=== PATIENT | female | born 1985 | race American Indian/Alaskan Native ===

== ENCOUNTER 2016-05-27 15:47 | Emergency (ER) | payer SELFPAY ==
[2016-05-27 21:32] LABS: Bilirubin,Urine NEG (Negative); Blood,Urine NEG (Negative); Ketones,Urine NEG (Negative); Leukocyte Esterase,Urine NEG (Negative); Mucus,Urine 3+ /HPF; Nitrite,Urine NEG (Negative); Protein,Urine <15 mg/dL mg/dL (Negative); Urobilinogen,Urine < 2.0 mg/dL (<2.0)
--- NOTE | 2016-05-27 21:37 | Emergency Department Report ---
HPI - General Chief Complaint: Urogenital-Female Time Seen by Provider: 05/27/16 19:32 - HPI HPI: 31-year-old female presents today with vaginal irritation and burning 2 weeks. Patient denies vaginal discharge or vaginal bleeding. She states she once an STD check. Positive for unprotected sex. Denies history of STDs. States that she has history of bacterial vaginosis but this feels different. Denies dysuria , increased urinary frequency or urgency. Denies fever, chills, nausea, vomiting, chest pain, shortness of breath, abdominal pain. ED Past Medical Hx - Past Medical History Previous Medical History?: No - Surgical History Past Surgical History?: Yes Additional Surgical History: x 2 - Social History Smoking Status: Current Every Day Smoker Substance Use Type: Alcohol - Medications Home Medications: Home Medications Medication Instructions Recorded Confirmed Last Taken Type Ferrous Sulfate [Feosol] 325 mg PO BID #60 tablet 04/18/15 02/22/16 Rx Hydrocortisone 1% [Hydrocortisone 1 applicatio TP TID #1 tube 02/29/16 Unknown Rx 1% CREAM] diphenhydrAMINE [Benadryl CAP] 25 mg PO Q8HR PRN #20 capsule 02/29/16 Unknown Rx ED Review of Systems ROS: Stated complaint: VAGINAL BURNING Other details as noted in HPI Constitutional: denies: chills, fever, malaise Eyes: denies: eye pain ENT: denies: ear pain, throat pain, congestion Respiratory: denies: cough, shortness of breath, wheezing Cardiovascular: denies: chest pain, palpitations Endocrine: no symptoms reported Gastrointestinal: denies: abdominal pain, nausea, vomiting, diarrhea Genitourinary: denies: urgency, dysuria, frequency, hematuria, discharge Musculoskeletal: denies: back pain Skin: denies: rash Neurological: denies: headache, weakness Physical Exam - Physical Exam Vital Signs: Vital Signs 05/27/16 16:33 Temperature 98.4 F Pulse Rate 78 Respiratory 18 Rate Blood Pressure 130/84 O2 Sat by Pulse 98 Oximetry Physical Exam: GENERAL: The patient is well-developed and well-nourished. Patient is in NAD. HEAD: Normocephalic. Atraumatic. CHEST/LUNGS: Clear to auscultation throughout. HEART/CARDIOVASCULAR: Regular rate and rhythm. No murmurs, rubs or gallops. ABDOMEN: Abdomen is soft, nontender. Bowel sounds normoactive. No guarding or rebound tenderness. PELVIC: Normal external genitalia, vaginal canal and cervical os. Positive for white milky discharge. EXTREMITIES: Peripheral pulses intact. Capillary refill less than 2 seconds. NEURO: Alert and oriented x 3. Normal gait. ED Course Vital Signs 05/27/16 16:33 Temperature 98.4 F Pulse Rate 78 Respiratory 18 Rate Blood Pressure 130/84 O2 Sat by Pulse 98 Oximetry ED Medical Decision Making - Lab Data Vital Signs 05/27/16 16:33 Temperature 98.4 F Pulse Rate 78 Respiratory 18 Rate Blood Pressure 130/84 O2 Sat by Pulse 98 Oximetry Lab Results 05/27/16 Range/Units 20:54 Urine Color Yellow (Yellow) Urine Turbidity Cloudy (Clear) Urine pH 5.0 (5.0-7.0) Ur Specific [place] 1.023 (1.003-1.030) Urine Protein <15 mg/dl (Negative) mg/dL Urine Glucose (UA) Neg (Negative) mg/dL Urine Ketones Neg (Negative) mg/dL Urine Blood Neg (Negative) Urine Nitrite Neg (Negative) Urine Bilirubin Neg (Negative) Urine Urobilinogen < 2.0 (<2.0) mg/dL Ur Leukocyte Esterase Neg (Negative) Urine WBC (Auto) 6.0 (0.0-6.0) /HPF Urine RBC (Auto) 2.0 (0.0-6.0) /HPF U Epithel Cells (Auto) 13.0 (0-13.0) /HPF Urine Mucus 3+ /HPF WET PREP: No clue cells, yeast or trichomonas seen. - Medical Decision Making 31-year-old female presents today with vaginal irritation and burning 2 weeks. Her urine analysis and wet prep is within normal limits. A referral for an OB /[employer] has been provided and patient is recommended to follow up. Patient is in no acute distress at this time. She will be discharged home and is encouraged to follow up with a primary care provider. She is encouraged to return to the emergency room for any worsening symptoms. Critical care attestation.: If time is entered above; I have spent that time in minutes in the direct care of this critically ill patient, excluding procedure time. ED Disposition Clinical Impression: Vaginal irritation Disposition: DISCHARGED TO HOME OR SELFCARE Is pt being admited?: No Does the pt Need Aspirin: No Condition: Stable Instructions: Vaginitis (ED) Additional Instructions: Follow-up with S[facility] [facility]. Return to emergency department if symptoms worsen. Referrals: PRIMARY CARE, [Primary Care Provider] - 3-5 Days NICOL HERNANDEZ MD [Staff Physician] - 3-5 Days Forms: Work/School Release Form(ED) Time of Disposition: 23:22
[2016-05-27 22:17] VITALS: BP 125/70
== END 2016-05-28 00:09 | disposition home or self-care (01) ==
LOC: ED 15:47
DX: N89.8 Other specified noninflammatory disorders of vagina (principal); F17.200 Nicotine dependence, unspecified, uncomplicated
CPT/HCPCS: 81001; 87210; 87591; 99284

== ENCOUNTER 2017-03-07 15:43 | Emergency (ER) | payer SELFPAY ==
[2017-03-07 15:52] VITALS: BP 124/64
[2017-03-07 16:56] LABS: Bilirubin,Urine NEG (Negative); Blood,Urine NEG (Negative); Ketones,Urine NEG (Negative); Leukocyte Esterase,Urine TR (Negative); Mucus,Urine FEW /HPF; Nitrite,Urine NEG (Negative)
== END 2017-03-07 21:50 | disposition left against medical advice (07) ==
LOC: ED 15:43
DX: M79.89 Other specified soft tissue disorders (principal); Z53.21 Procedure and treatment not carried out due to patient leaving prior to being seen by health care provider
CPT/HCPCS: 81001; 81025

== ENCOUNTER 2017-04-18 14:08 | Emergency (ER) | payer SELFPAY ==
[2017-04-18 14:23] VITALS: BP 108/84
[2017-04-18 15:36] LABS: Bacteria,Urine 1+ /HPF (Negative); Bilirubin,Urine NEG (Negative); Blood,Urine LG (Negative); Ketones,Urine 20 mg/dL (Negative); Leukocyte Esterase,Urine NEG (Negative); Mucus,Urine 3+ /HPF; Nitrite,Urine NEG (Negative)
--- NOTE | 2017-04-18 15:44 | Emergency Department Report ---
HPI - General Chief Complaint: Upper Respiratory Infection Time Seen by Provider: 04/18/17 15:00 - HPI HPI: Patient reports that she has a skin rash to her left forearm on the side. She says she doesn't know what caused that but it's irritating her. She says she just thought yesterday. She is also complaining of sinus pain and drainage at 3 out of 10 that started 4 days ago. She says she has not used any over-the- counter medication. Denies any nausea or vomiting. Denies any cough. Denies any sore throat. She says she has nasal congestion and drainage. Denies any fever or chills. Denies any chest pain. Patient also complaining of exposure to STD. She said she is not having any vaginal discharge but she was told by the person that she had unprotected sex with that he has an STD and was treated. Patient is not sure what STD. She is requesting treatment for gonorrhea, chlamydia, Trichomonas. She is alson also requested in HIV and hepatitis test. Patient is currently on her period that she says she started 2 days ago 04/15/2017. He denies any urinary burning frequency or urgency. Denies any abdominal or back pain. ED Past Medical Hx - Past Medical History Previous Medical History?: No - Surgical History Past Surgical History?: Yes Additional Surgical History: x 2 - Family History Family history: no significant - Social History Smoking Status: Current Every Day Smoker Substance Use Type: Alcohol - Medications Home Medications: Home Medications Medication Instructions Recorded Confirmed Last Taken Type Ferrous Sulfate [Feosol] 325 mg PO BID #60 tablet 04/18/15 02/22/16 Rx Hydrocortisone 1% [Hydrocortisone 1 applicatio TP TID #1 tube 02/29/16 Unknown Rx 1% CREAM] diphenhydrAMINE [Benadryl CAP] 25 mg PO Q8HR PRN #20 capsule 02/29/16 Unknown Rx Cetirizine HCl [ZyrTEC] 10 mg PO QAM 14 Days #14 capsule 04/18/17 Unknown Rx Fluticasone [Flonase] 1 spray NS QDAY 14 Days #1 bottle 04/18/17 Unknown Rx Triamcinolone 0.1% [Kenalog 0.1% 1 applic TP TID 7 Days #1 tube 04/18/17 Unknown Rx OINT] ED Review of Systems ROS: Stated complaint: NAUSEA Other details as noted in HPI Comment: All other systems reviewed and negative Constitutional: no symptoms reported Eyes: denies: eye discharge ENT: congestion (sinus drainage and congestion. Sinus pain). denies: ear pain , throat pain, dental pain, hearing loss Respiratory: no symptoms reported Cardiovascular: denies: chest pain, palpitations, dyspnea on exertion, orthopnea , edema, syncope, paroxysmal nocturnal dyspnea Gastrointestinal: denies: abdominal pain, nausea, vomiting, diarrhea, constipation Genitourinary: denies: urgency, dysuria, frequency, hematuria, discharge, abnormal menses, dyspareunia Musculoskeletal: denies: back pain, arthralgia, myalgia Skin: denies: rash Neurological: denies: headache, numbness, paresthesias, confusion, abnormal gait , vertigo Physical Exam - Physical Exam Vital Signs: Vital Signs 04/18/17 14:18 Temperature 98.9 F Pulse Rate 97 H Respiratory 22 Rate Blood Pressure 108/84 O2 Sat by Pulse 100 Oximetry General: This is a 32-year-old female well-nourished well-developed in no acute distress Physical Exam: Head: Normocephalic atraumatic Ears:BIateral TM congested without erythema and no loss of bony landmarks. Tac[place] EAC with normal exam. No mastoid bone tenderness. Mouth: Moist, no pharyngeal erythema or exudate . No tonsillar erythema or exudate. UVULA midline and oral airways patent. No peritonsillar abscess Neck: Nontender to palpate, supple, normal range of motion. No adenopathy. No c- spine tenderness. Nose: Bilateral nasal mucosa congested and erythema with clear drainage. Maxillary and frontal sinuses non-tender to palpate. Eyes: Tac[place] Sclerae and conjunctiva without injection. Bilateral pupils equal and reactive to light. Bilateral lids are normal. Normal accommodation.BEOMI Lungs: Clear to auscultate bilaterally, no rhonchi wheezes or rales. Normal work of breathing and no chest wall tenderness. CV: S1, S2. Regular rate and rhythm negative murmur. Capillary refill is less than 3 seconds Abd: Soft, nontender to palpate no quadrants, no guarding or rebound tenderness. Normal bowel sounds and no CVA tenderness Skin: Clean dry and intact, small, dark area noted to right outer lateral forearm ,macular, and scaly. No induration. No erythema Psych: Normal mood and behavior ED Course Vital Signs 04/18/17 14:18 Temperature 98.9 F Pulse Rate 97 H Respiratory 22 Rate Blood Pressure 108/84 O2 Sat by Pulse 100 Oximetry - Reevaluation(s) Reevaluation #1: 04/18/17 16:02 Treated empirically for Gonorrhea with Rocephin 250 mg IM, Chlamydia with Zithromax 1 gram po and for Trichomonias flagyl 2 gram po ED Medical Decision Making - Lab Data Lab Results 04/18/17 04/18/17 Range/Units 15:11 15:42 Urine Color Yellow (Yellow) Urine Turbidity Clear (Clear) Urine pH 6.0 (5.0-7.0) Ur Specific [place] 1.021 (1.003-1.030) Urine Protein 30 mg/dl (Negative) mg/dL Urine Glucose (UA) Neg (Negative) mg/dL Urine Ketones 20 (Negative) mg/dL Urine Blood Lg (Negative) Urine Nitrite Neg (Negative) Urine Bilirubin Neg (Negative) Urine Urobilinogen 4.0 (<2.0) mg/dL Ur Leukocyte Esterase Neg (Negative) Urine WBC (Auto) 4.0 (0.0-6.0) /HPF Urine RBC (Auto) 1.0 (0.0-6.0) /HPF U Epithel Cells (Auto) 10.0 (0-13.0) /HPF Urine Bacteria (Auto) 1+ (Negative) /HPF Urine Mucus 3+ /HPF Urine HCG, Qual Negative (Negative) Patient has a large amount of blood in her urine because she just started her menses 2 days ago. She has ketones and able to tolerate warranted 80 mL of apple juice in emergency room without any nausea or vomiting. - Medical Decision Making ED course: ED patient here complaining of sinus pain and nasal congestion and drainage and found to have sinus inflammation which is more than likely viral in nature since this has been going on for 4 days and she has not tried any over -the-counter medication. Patient is not having any cough or fever. She complaining of rash to her right arm and found to have small macular dark, scaly area without any signs of infection. Patient also here because she says she was exposed to STD and she is asymptomatic but requested to be treated for STDs. Her urinalysis negative for infection, +20 ketones and patient was orally hydrated in emergency room and tolerated well. I encouraged her that she needs to increase her fluid intake to 2-3 L of water per day. Urine was negative. Patient had large amount of blood in her urine and she just started her period 2 days ago.Treated empirically for Gonorrhea with Rocephin 250 mg IM, Chlamydia with Zithromax 1 gram po and for Trichomonias flagyl 2 gram po . He had no adverse reaction from medication given. I discussed lab work patient and I also told her that she needs to follow up with [facility] to get STD testing to include hepatitis, HIV and other STD. Patient does not have any discharge she just said that the person that she had sexual intercourse with said that he had an STD. Safe sex encourage. Patient discharged home with prescription for Flonase and Zyrtec and hydrocortisone cream for rash. Critical care attestation.: If time is entered above; I have spent that time in minutes in the direct care of this critically ill patient, excluding procedure time. ED Disposition Clinical Impression: Nasal congestion with rhinorrhea, Concern about STD in female without diagnosis , Rash and nonspecific skin eruption, Mild dehydration Upper respiratory tract infection Qualifiers: URI type: unspecified URI Qualified Code(s): J06.9 - Acute upper respiratory infection, unspecified Disposition: - TO HOME OR SELFCARE Is pt being admited?: No Does the pt Need Aspirin: No Condition: Stable Instructions: Safe Sex (ED), Sexually Transmitted Diseases (ED), Dehydration ( ED), Cold Symptoms (ED), Acute Rash (ED) Additional Instructions: Please increase her fluid intake to 2-3 L of fluid per day as you urine shows that you have mild dehydration Flush nostrils with saline nasal spray Your urine and test was negative F/U with primary care physician as instructed if he do not have a primary care physician please follow up at [facility] Please practice safe sex Please refrain from having sexual activity for the next 2 weeks. Follow up with [facility] in 7-10 days for STD testing to include HIV and hepatitis You were treated today in emergency room for gonorrhea, chlamydia and Trichomonias. do not drink alcohol for the next 7 days as this will interact negatively with medication given for STD. Tell partner know that you're treated for STD and hospital today. Prescriptions: Cetirizine HCl [ZyrTEC] 10 mg PO QAM 14 Days #14 capsule Fluticasone [Flonase] 1 spray NS QDAY 14 Days #1 bottle Triamcinolone 0.1% [Kenalog 0.1% OINT] 1 applic TP TID 7 Days #1 tube Referrals: PRIMARY CARE, [Primary Care Provider] - 3-5 Days [facility] [Outside] - 3-5 Days [facility] [Outside] - 7-10 days Forms: Work/School Release Form(ED)
[2017-04-18] MEDS ORDERED: XYLOCAINE 1% MPF 5 mL INFILTRATI ONE (16:00)
[2017-04-18] MEDS ORDERED: ROCEPHIN IM ONE (16:00)
[2017-04-18] MEDS ORDERED: FLAGYL PO ONE (16:00)
[2017-04-18] MEDS ORDERED: ZITHROMAX PO ONE (16:00)
== END 2017-04-18 17:04 | disposition home or self-care (01) ==
LOC: ED 14:08
DX: R21 Rash and other nonspecific skin eruption (principal); J06.9 Acute upper respiratory infection, unspecified; E86.0 Dehydration; R09.81 Nasal congestion; F17.200 Nicotine dependence, unspecified, uncomplicated; Z98.890 Other specified postprocedural states
CPT/HCPCS: 81001; 81025; 96372; 99283; J0696

== ENCOUNTER 2018-05-29 04:29 | Emergency (ER) | payer SELFPAY ==
[2018-05-29 08:16] LABS: Bacteria,Urine 1+ /HPF (Negative); Bilirubin,Urine NEG (Negative); Blood,Urine NEG (Negative); Color,Urine Yellow (Yellow); Mucus,Urine FEW /HPF; Protein,Urine <15 mg/dL mg/dL (Negative); Urobilinogen,Urine < 2.0 mg/dL (<2.0); WBC,Urine < 1.0 /HPF (0.0-6.0)
[2018-05-29 08:24] LABS: HCG Qualitative,Urine Negative (Negative)
--- NOTE | 2018-05-29 08:56 | Emergency Department Report ---
HPI - General Chief Complaint: Urogenital-Female Time Seen by Provider: 05/29/18 07:18 - HPI HPI: Patient is a 33-year-old female presents to ED complaining of vaginal burning with dysuria for the past 2 days. She denies vaginal bleeding or vaginal disch arge or pelvic pain. Patient is is also complaining of nasal pressure and congestion with facial pain. Patient describes greenish yellowish mucus from her nose. She denies fevers/chills/nausea vomiting or problems. ED Past Medical Hx - Past Medical History Previous Medical History?: Yes Hx Congestive Heart Failure: No Hx Diabetes: No Hx Sickle Cell Disease: No Hx Asthma: No Hx COPD: No Hx HIV: No Additional medical history: Anemia - Surgical History Past Surgical History?: No Hx Open Heart Surgery: No Hx Cholecystectomy: No Hx Appendectomy: No Hx Breast Surgery: No - Social History Smoking Status: Current Every Day Smoker Substance Use Type: None - Medications Home Medications: Home Medications Medication Instructions Recorded Confirmed Last Taken Type Ferrous Sulfate [Feosol 325 MG tab] 325 mg PO QDAY #30 tablet 01/05/18 Unknown Rx Amoxicillin/Potassium Clav 1 each PO BID #20 tablet 05/29/18 Unknown Rx [Augmentin 875-125 Tablet] Pseudoephedrine (Nf) [Sudafed (Nf)] 60 mg PO BID #20 tab 05/29/18 Unknown Rx ED Review of Systems ROS: Stated complaint: VAGINAL BURNING Other details as noted in HPI Comment: All other systems reviewed and negative Physical Exam - Physical Exam Vital Signs: Vital Signs 05/29/18 04:32 Temperature 98.4 F Pulse Rate 93 H Respiratory 18 Rate Blood Pressure 141/71 O2 Sat by Pulse 100 Oximetry Physical Exam: GENERAL: Alert and oriented x3, no apparent distress, Normal Gait, atraumatic. HEAD: Head is normocephalic and a-traumatic. NOSE: Nose symetrical, Nontender,Nares appeared normal. Maxillary and frontal sinus tenderness, rhinorrhea yellowish seen MOUTH:Mouth is well hydrated and without lesions. Tonsils nonerythematous or swollen, Uvula midline, Tongue not elevated. Mucous membranes are moist. Posterior pharynx clear, no exudate or lesions. Patent airways. LUNGS: Symetrical with respiration, No wheezing, no rales or crackles, CTAB. HEART: S1, S2 present, regular rate and rhythm without murmur, no rubs, no gallops. Non tender to palpation ABDOMEN: No organomegaly was noted,Positive bowel sounds, soft, and non- distended. . Nontender to palpation on all Quadrants, NO CVA tenderness. GENITOURINARY: External genitalia without erythema, exudate or discharge. . SKIN: Warm and dry, No lesions, No ulceration or induration present. ED Course Vital Signs 05/29/18 04:32 Temperature 98.4 F Pulse Rate 93 H Respiratory 18 Rate Blood Pressure 141/71 O2 Sat by Pulse 100 Oximetry Critical care attestation.: If time is entered above; I have spent that time in minutes in the direct care of this critically ill patient, excluding procedure time. ED Disposition Clinical Impression: UTI (urinary tract infection), Sinusitis Disposition: TO HOME OR SELFCARE Is pt being admited?: No Does the pt Need Aspirin: No Condition: Stable Instructions: Urinary Tract Infection in Women (ED), Acute Bacterial Rhinosinusitis (ED), Sinusitis (ED) Additional Instructions: Make sure to follow up with the primary care physician as discussed. Take all your medications as you've been prescribed. If you have any worsening symptoms or develop new symptoms please return to ED immediately. Prescriptions: Amoxicillin/Potassium Clav [Augmentin 875-125 Tablet] 1 each PO BID #20 tablet Pseudoephedrine (Nf) [Sudafed (Nf)] 60 mg PO BID #20 tab Referrals: PRIMARY CARE, [Primary Care Provider] - 3-[address] [facility] [Outside] - 3-5 Days [facility] [Outside] - 3-5 Days Forms: Work/School Release Form(ED) Time of Disposition: :01
[2018-05-29 09:25] VITALS: BP 146/84
== END 2018-05-29 09:24 | disposition home or self-care (01) ==
LOC: MERGE 04:29 → ED 04:29
DX: N39.0 Urinary tract infection, site not specified (principal); J01.90 Acute sinusitis, unspecified; F17.200 Nicotine dependence, unspecified, uncomplicated; Z86.2 Personal history of diseases of the blood and blood-forming organs and certain disorders involving the immune mechanism
CPT/HCPCS: 81001; 81025; 99283

== ENCOUNTER 2018-07-10 13:03 | Emergency (ER) | payer SELFPAY ==
--- NOTE | 2018-07-10 13:08 | Emergency Department Report ---
Blank Doc - Documentation Documentation: This is a 33-year-old female that presents with alcohol and cocaine detox. De nies any SI/HI. Last dose was 2-3 days ago. Denies any other complaints. This initial assessment diagnostic orders/clinical plan/treatment(s) is/are subject to change based on patient's health status, clinical progression and re- assessment by fellow clinical providers in the ED. Further treatment and workup at subsequent clinical providers discretion. Patient/guardians urged not to elope from ED s their condition may be serious if not clinically assessed and managed. Initial orders include: 1-Patient sent to MAIN for further evaluation and treatment 2- Labs 3- UA
[2018-07-10 14:14] LABS: Bilirubin,Urine NEG (Negative); Blood,Urine LG (Negative); Color,Urine Red (Yellow); Mucus,Urine 3+ /HPF
[2018-07-10 14:15] LABS: RBC,Urine > 182.0 /HPF (0.0-6.0); WBC,Urine > 182.0 /HPF (0.0-6.0)
[2018-07-10 14:24] LABS: Amphetamine Screen,Urine PRESUMPTIVE NEGATIVE; Benzodiazepines Screen,Urine PRESUMPTIVE NEGATIVE; Methadone Screen,Urine PRESUMPTIVE NEGATIVE; Opiate Screen,Urine PRESUMPTIVE NEGATIVE
[2018-07-10 14:44] LABS: Cannabinoid Screen,Urine PRESUMPTIVE POSITIVE; Cocaine Screen,Urine PRESUMPTIVE POSITIVE
[2018-07-10 18:08] LABS: Mean Corpuscular HGB Conc 29 % (30-34); Platelet Count 284 K/mm3 (140-440); Red Blood Count 4.34 M/mm3 (3.65-5.03)
[2018-07-10 18:10] LABS: Hematocrit 29.3 % (30.3-42.9); Hemoglobin 8.6 gm/dl (10.1-14.3); Mean Corpuscular Volume 67 fl (79-97); Red Cell Distribution Width 30.3 % (13.2-15.2)
[2018-07-10 18:15] LABS: Alanine Aminotransferase 9 units/L (7-56); Albumin 4.5 g/dL (3.9-5); BUN/Creatinine Ratio 16; Blood Urea Nitrogen 8 mg/dL (7-17); Calcium 9.1 mg/dL (8.4-10.2); Hemolysis Index 85
[2018-07-10 20:08] LABS: Anisocytosis 1+; Hypochromasia 1+; Total Cells Counted 100
[2018-07-10 20:09] LABS: Platelet Estimate Consistent w Auto
--- NOTE | 2018-07-10 20:50 | Emergency Department Report ---
ED Psych HPI - General Chief Complaint: Alcohol Stated Complaint: DETOX Time Seen by Provider: 07/10/18 13:07 Source: police Mode of arrival: Ambulatory - History of Present Illness Initial Comments: 33-year-old female brought into ED by police. Patient states she went to the po lice station to find out "what's going on with all of this monitoring and GBS and everything." Patient states she knows someone is watching her and everybody else, perhaps the government. States "someone is talking AT me, not TO me, because I don't let people get close to me like that." Patient denies previous psychiatric history, denies SI and HI. The patient reports alcohol and cocaine abuse. -: unknown Associated Psychiatric Symptoms: auditory hallucinations, delusions Improves With: none Worsens With: none Associated Symptoms: denies other symptoms Treatments Prior to Arrival: none - Related Data Home Medications Medication Instructions Recorded Confirmed Last Taken No Known Home Medications [No 07/10/18 07/10/18 Unknown Reported Home Medications] Allergies Allergy/AdvReac Type Severity Reaction Status Date / Time No Known Allergies Allergy Unverified 07/04/18 09:22 ED Review of Systems ROS: Stated complaint: DETOX Other details as noted in HPI Comment: All other systems reviewed and negative Psychiatric: auditory hallucinations. denies: homicidal thoughts, suicidal thoughts ED Past Medical Hx - Past Medical History Previous Medical History?: Yes Hx Congestive Heart Failure: No Hx Diabetes: No Hx Sickle Cell Disease: No Hx Asthma: No Hx COPD: No Hx HIV: No Additional medical history: iron deficiency Anemia - Surgical History Past Surgical History?: Yes Hx Open Heart Surgery: No Hx Cholecystectomy: No Hx Appendectomy: No Hx Breast Surgery: No Additional Surgical History: x 2 - Social History Smoking Status: Current Every Day Smoker Substance Use Type: Alcohol, Cocaine - Medications Home Medications: Home Medications Medication Instructions Recorded Confirmed Last Taken Type No Known Home Medications [No 07/10/18 07/10/18 Unknown History Reported Home Medications] ED Physical Exam - General Limitations: No Limitations General appearance: alert, in no apparent distress - Head Head exam: Present: atraumatic, normocephalic - Eye Eye exam: Present: normal appearance - ENT ENT exam: Present: mucous membranes moist - Neck Neck exam: Present: normal inspection - Respiratory Respiratory exam: Present: normal lung sounds bilaterally. Absent: respiratory distress - Cardiovascular Cardiovascular Exam: Present: regular rate, normal rhythm - GI/Abdominal GI/Abdominal exam: Present: soft. Absent: distended - Extremities Exam Extremities exam: Present: normal inspection - Neurological Exam Neurological exam: Present: alert, oriented X3 - Psychiatric Psychiatric exam: Present: normal affect, normal mood - Skin Skin exam: Present: warm, dry, intact, normal color ED Course Vital Signs 07/10/18 07/10/18 13:08 20:04 Temperature 98.1 F 98.5 F Pulse Rate 77 72 Respiratory 16 15 Rate Blood Pressure 96/74 Blood Pressure 132/70 [Left] O2 Sat by Pulse 95 100 Oximetry ED Medical Decision Making - Lab Data Result diagrams: 07/10/18 17:44 07/10/18 17:44 - Medical Decision Making 33-year-old female with delusions, paranoia, and auditory hallucinations. UA shows UTI. Rbc's present in UA, however, this is because patient reports she is currently on her menstrual period. Bactrim DS given for her UTI. Patient is medically clear for mental health evaluation. Patient placed on a 1013. Will dispo per psych. - Differential Diagnosis psychosis, drug-induced psychosis Critical care attestation.: If time is entered above; I have spent that time in minutes in the direct care of this critically ill patient, excluding procedure time. ED Disposition Clinical Impression: UTI (urinary tract infection), Medical clearance for psychiatric admission Disposition: [id number]/[id number] PSY HOSP/PSY UNIT Is pt being admited?: No Condition: Stable Referrals: AMIE DAS MD [Primary Care Provider] - 3-5 Days
[2018-07-10] MEDS: BACTRIM DS PO SCH (21:31)
[2018-07-11] MEDS: BACTRIM DS PO SCH ×2 (09:47→21:35)
--- NOTE | 2018-07-11 10:20 | Consultation ---
History of Present Illness - Reason for Consult Consult date: 07/11/18 Reason for consult: Mental Health Evaluation Requesting physician: ZACH ZHU - Chief Complaint Chief complaint: "I don't know why I'm here' - History of Present Psychiatric Illness 33 y.o. AA female who presented to the ER for bizarre behavior by the local police. Today the patient is calm, but tangent during the assessment She was asked several questions about her actions prior to her arrival to the ER, she stated, "Ask the judge's clerk." She was able to state that she wanted the police to get involved and stop people from "bothering" her. Per the notes, no behavioral disturbance on this shift. At this time, the patient is a poor historian. Medications and Allergies Allergies Allergy/AdvReac Type Severity Reaction Status Date / Time No Known Allergies Allergy Unverified 07/04/18 09:22 Home Medications Medication Instructions Recorded Confirmed Last Taken Type No Known Home Medications [No 07/10/18 07/10/18 Unknown History Reported Home Medications] Active Meds: Active Medications Trimethoprim/Sulfamethoxazole (Bactrim Ds) 1 each PO Q12HR JACKELINE Last Admin: 07/11/18 09:47 Dose: 1 each Documented by: Past psychiatric history - Past Medical History Past Medical History: other (Unable to obtain ) Past Surgical History: Other (Unable to obtain ) - past Psychiatric treatment and history psychiatric treatment history: Unable to obtain a psy hx and fam psy hx. - Social History Social history: other (Reside in a hotel. ) Mental Status Exam - Vital signs Last Vital Signs Temp 98.5 F 07/11/18 08:00 Pulse 60 07/11/18 08:00 Resp 20 07/11/18 08:00 BP 110/59 07/11/18 08:00 Pulse Ox 100 07/11/18 08:00 - Exam Narrative exam: MSE: Appearance: in hospital attire Behavior: regular eye contact Speech: regular rate and tone Mood: "okay"" Affect: congruent to mood Thought Process: tangential, disorganized Thought Content: denies SI/HI's and AVH's, delusional, paranoia Motor Activity: sitting up in bed Cognition: A/O x 3 Insight: limited Judgment: limited Results Result Diagrams: 07/10/18 17:44 07/10/18 17:44 Abnormal lab results 07/10/18 07/10/18 07/10/18 Range/Units 13:52 17:44 17:44 WBC 14.8 H (4.5-11.0) K/mm3 Hgb 8.6 L (10.1-14.3) gm/dl Hct 29.3 L (30.3-42.9) % MCV 67 L (79-97) fl MCH 20 L (28-32) pg MCHC 29 L (30-34) % RDW 30.3 H (13.2-15.2) % Seg Neuts % (Manual) 74.0 H (40.0-70.0) % Eosinophils % (Manual) 6.0 H (0.0-4.3) % Basophils % (Manual) 2.0 H (0.0-1.8) % Seg Neutrophils # Man 11.0 H (1.8-7.7) K/mm3 Eosinophils # (Manual) 0.9 H (0.0-0.4) K/mm3 Basophils # (Manual) 0.3 H (0.0-0.1) K/mm3 Creatinine 0.5 L (0.7-1.2) mg/dL Ur Specific [place] 1.033 H (1.003-1.030) Urine WBC (Auto) > 182.0 H (0.0-6.0) /HPF Salicylates (2.8-20.0) mg/dL Acetaminophen (10.0-30.0) ug/mL 07/10/18 07/10/18 Range/Units 17:44 17:44 WBC (4.5-11.0) K/mm3 Hgb (10.1-14.3) gm/dl Hct (30.3-42.9) % MCV (79-97) fl MCH (28-32) pg MCHC (30-34) % RDW (13.2-15.2) % Seg Neuts % (Manual) (40.0-70.0) % Eosinophils % (Manual) (0.0-4.3) % Basophils % (Manual) (0.0-1.8) % Seg Neutrophils # Man (1.8-7.7) K/mm3 Eosinophils # (Manual) (0.0-0.4) K/mm3 Basophils # (Manual) (0.0-0.1) K/mm3 Creatinine (0.7-1.2) mg/dL Ur Specific [place] (1.003-1.030) Urine WBC (Auto) (0.0-6.0) /HPF Salicylates < 0.3 L (2.8-20.0) mg/dL Acetaminophen < 5.0 L (10.0-30.0) ug/mL All other labs normal. Assessment and Plan Assessment and plan: Impression: Substance Induced Psychosis. Today the patient is calm, but tangent during the assessment. DDx: R/O Psychotic DO Recommendation/Plan: Reevaluate 103 in 24 hours. Once the patient is reassess medication treatment will be determined if indicated. Dispo: Once reassessed, proper dispo will be determined. The patient will be referred to inpatient psy services. Will staff with Dr Cordova.
[2018-07-11] MEDS ORDERED: IBUPROFEN PO ONE (14:25)
[2018-07-11] MEDS ORDERED: LET TOPICAL TP ONE (19:50)
[2018-07-12] MEDS: BACTRIM DS PO SCH ×2 (13:31→22:45)
--- NOTE | 2018-07-12 15:30 | Progress Note ---
Subjective - Reason for Consult Consult date: 07/12/18 Reason for consult: Psychiatry Follow-up - Chief Complaint Chief complaint: "Paulettelo" 33 y.o. AA female who presented to the ER for bizarre behavior by the local police. Today the patient is calm, but still tangent during the assessment. She adamant that someone can tell her what's going on with her life. Throughout the interview she smiles inappropriately and had to be redirected several times to k eep her on topic. She was asked about her mental, her answers were not logical. She denies SI/HI's and AVH's. Mental Status Exam - Vital signs Last Vital Signs Temp 97.2 F L 07/12/18 13:57 Pulse 73 07/12/18 13:57 Resp 16 07/12/18 13:57 BP 115/66 07/12/18 13:57 Pulse Ox 100 07/12/18 13:57 - Exam Narrative exam: MSE: Appearance: in hospital attire Behavior: regular eye contact Speech: regular rate and tone Mood: euphoric Affect: congruent to mood Thought Process: tangential, disorganized Thought Content: denies SI/HI's and AVH's, delusional, paranoia Motor Activity: sitting up in bed Cognition: A/O x 3 Insight: poor Judgment: variable Assessment and Plan Impression: Substance Induced Psychosis. Today the patient is calm, but still tangent during the assessment. DDx: R/O Psychotic DO Recommendation/Plan: Conitnue 1013 and start Geodon 20 mg PO BID for psychosis. Attempted to discuss metabolic side effects of Geodon with the patient. Give Geodon with food. Dispo: The patient was referred to inpatient psy services. Staffed with Dr Cordova.
[2018-07-12] MEDS: GEODON PO SCH ×2 (17:55→22:45)
[2018-07-13] MEDS: BACTRIM DS PO SCH ×2 (10:28→23:20)
[2018-07-13] MEDS: GEODON PO SCH ×2 (10:28→23:20)
--- NOTE | 2018-07-13 14:23 | Progress Note ---
Subjective - Reason for Consult Consult date: 07/13/18 Reason for consult: Psychiatric Follow-up Evaluation - Chief Complaint Chief complaint: "I feel better" Patient is a 33 y.o. AA female who presented to the ER for bizarre behavior by the local police. Today the patient is calm and cooperative during the assessment. She states the drugs made me over react. When I'm discharged I will go back to the hotel. Patient verbalizes that the provider can reach out to her aunt to gain collateral, Miladys Pacheco [phone]. Also patient denies depressed mood. She denies SI/HI's, A/VH's, and delusions. Mental Status Exam - Vital signs Last Vital Signs Temp 97.1 F L 07/13/18 10:13 Pulse 64 07/13/18 10:13 Resp 18 07/13/18 10:13 BP 94/62 07/13/18 10:13 Pulse Ox 99 07/13/18 10:13 - Exam Narrative exam: Mental Status Exam Appearance: in hospital attire Behavior: regular eye contact Speech: regular rate and tone Mood: " I feel better" Affect: congruent to mood Thought Process: logical; organized Thought Content: denies SI/HI's and AVH's, and delusions Motor Activity: ambulatory Cognition: A/O x 3 Insight: fair Judgment: fair to variable Assessment and Plan Impression: Substance Induced Psychosis. Today the patient is calm and cooperative during the assessment. She denies SI/HI's, A/VH's, delusions, and cravings/withdrawal symptoms. DDx: R/O Psychotic DO Recommendation/Plan: 1. Terence 1013. 2. Continue Geodon 20 mg PO BID for psychosis. Attempted to discuss metabolic side effects of Geodon with the patient. Give Geodon with food. Disposition: The patient was referred to inpatient psychiatric services. Staffed with Dr. Katherine Case.
[2018-07-14] MEDS: BACTRIM DS PO SCH (11:09)
[2018-07-14] MEDS: GEODON PO SCH (11:09)
--- NOTE | 2018-07-14 12:57 | Progress Note ---
Subjective - Reason for Consult Consult date: 07/14/18 Reason for consult: Psychiatric Follow-up Evaluation - Chief Complaint Chief complaint: "I feel good" Patient is a 33 y.o. AA female who presented to the ER for bizarre behavior by the local police. Today the patient is calm and cooperative during the assessment. She states the drugs made me overreact. When I'm discharged I will go back to the hotel. Patient verbalizes that the provider can reach out to her aunt to gain collateral, Miladys Pacheco [phone]. Provider/patient attempted to reach aunt at 3:11pm on 07/14/18. No answer. Also patient denies depressed mood. She denies SI/HI's, A/VH's, delusions, cravings/withdrawal symptoms . Per staff patient's behavior is appropriate. Patient has been interacting with staff without any issues. Per patient she has no access to any weapons. Mental Status Exam - Vital signs Last Vital Signs Temp 97.4 F L 07/14/18 11:35 Pulse 65 07/14/18 11:35 Resp 18 07/14/18 11:35 BP 106/52 07/14/18 11:35 Pulse Ox 99 07/14/18 11:35 - Exam Narrative exam: Mental Status Exam Appearance: in hospital attire Behavior: regular eye contact Speech: regular rate and tone Mood: " I feel good" Affect: congruent to mood Thought Process: logical; organized Thought Content: denies SI/HI's and AVH's, and delusions Motor Activity: ambulatory Cognition: A/O x 3 Insight: fair Judgment: fair Assessment and Plan Impression: Substance Induced Psychosis. Today the patient is calm and cooperative during the assessment. She denies SI/HI's, A/VH's, delusions, and cravings/withdrawal symptoms. At the time of discharge patient is in no imminent danger to self and others. Discussed medications/coping skills in regards to psychosis and substance abuse. Patient verbalizes understanding. DDx: R/O Psychotic DO Recommendation/Plan: 1. Will rescind 1013. Patient does not meet criteria. 2. Continue Geodon 20 mg PO BID for psychosis. Attempted to discuss metabolic side effects of Geodon with the patient. Give Geodon with food. Disposition: The patient is given outpatient referrals. Patient is to follow-up with therapist/psychiatrist on an outpatient basis. Patient can follow-up at the [facility] for outpatient referrals. Staffed with Dr. Katherine Case.
[2018-07-14 16:35] VITALS: BP 108/86
== END 2018-07-14 16:47 | disposition home or self-care (01) ==
LOC: ED 13:03
DX: F19.159 Other psychoactive substance abuse with psychoactive substance-induced psychotic disorder, unspecified (principal); N39.0 Urinary tract infection, site not specified; F17.200 Nicotine dependence, unspecified, uncomplicated; F14.10 Cocaine abuse, uncomplicated; Z86.2 Personal history of diseases of the blood and blood-forming organs and certain disorders involving the immune mechanism
CPT/HCPCS: 36415; 80053; 80307; 81001; 84443; 84703; 85007; 85025; 99284; G0480; 80320

== ENCOUNTER 2018-08-08 20:23 | Emergency (ER) | payer OTHER ==
[2018-08-08 20:37] VITALS: BP 159/94
[2018-08-09 00:37] LABS: HCG Qualitative,Urine Negative (Negative)
[2018-08-09 00:38] LABS: Bilirubin,Urine NEG (Negative); Blood,Urine SM (Negative); Color,Urine Yellow (Yellow); Hyaline Casts,Urine 1 /LPF; Mucus,Urine FEW /HPF; Protein,Urine <15 mg/dL mg/dL (Negative); Urobilinogen,Urine < 2.0 mg/dL (<2.0); WBC,Urine < 1.0 /HPF (0.0-6.0)
[2018-08-09 00:56] LABS: Amphetamine Screen,Urine PRESUMPTIVE NEGATIVE; Benzodiazepines Screen,Urine PRESUMPTIVE NEGATIVE; Cannabinoid Screen,Urine PRESUMPTIVE NEGATIVE; Methadone Screen,Urine PRESUMPTIVE NEGATIVE; Opiate Screen,Urine PRESUMPTIVE NEGATIVE
[2018-08-09 01:09] LABS: Cocaine Screen,Urine PRESUMPTIVE POSITIVE
--- NOTE | 2018-08-09 02:37 | Emergency Department Report ---
ED General Adult HPI - General Chief complaint: Dental/Oral Stated complaint: MOUTH PAIN Time Seen by Provider: 08/08/18 22:45 Source: patient Mode of arrival: Ambulatory Limitations: No Limitations - History of Present Illness Initial comments: 33-year-old -[place] female presents emergency department complaining of a history of cocaine use, EtOH, THC, and she states she would like to get into a rehabilitation program. She denies any suicidal or homicidal ideation. She reports no auditory or visual hallucinations. -: Gradual Radiation: non-radiation Severity scale (0 -10): 6 Quality: dull Consistency: constant Improves with: none Worsens with: none Associated Symptoms: denies: confusion, chest pain, diaphoresis, loss of appetite, malaise, nausea/vomiting, rash, shortness of breath, syncope, weakness Treatments Prior to Arrival: none - Related Data Previous Rx's Medication Instructions Recorded Last Taken Type Sulfamethoxazole/Trimethoprim 1 each PO Q12HR #10 tablet 07/14/18 Unknown Rx [Bactrim DS TAB] Ziprasidone [Geodon] 20 mg PO BID #60 capsule 07/14/18 Unknown Rx Nystas/Diphen/Xyl Visc/Mylanta 30 ml MM TID #450 ml 08/09/18 Unknown Rx [Magic Mouthwash] Allergies Allergy/AdvReac Type Severity Reaction Status Date / Time No Known Allergies Allergy Unverified 07/04/18 09:22 ED Review of Systems ROS: Stated complaint: MOUTH PAIN Other details as noted in HPI Constitutional: denies: chills, fever Eyes: denies: eye pain, eye discharge, vision change ENT: denies: ear pain, throat pain Respiratory: denies: cough, shortness of breath, wheezing Cardiovascular: denies: chest pain, palpitations Endocrine: no symptoms reported Gastrointestinal: denies: abdominal pain, nausea, diarrhea Genitourinary: denies: urgency, dysuria, discharge Musculoskeletal: denies: back pain, joint swelling, arthralgia Skin: denies: rash, lesions Neurological: denies: headache, weakness, paresthesias Psychiatric: denies: anxiety, depression Hematological/Lymphatic: denies: easy bleeding, easy bruising ED Past Medical Hx - Past Medical History Previous Medical History?: Yes Hx Congestive Heart Failure: No Hx Diabetes: No Hx Sickle Cell Disease: No Hx Asthma: No Hx COPD: No Hx HIV: No Additional medical history: iron deficiency Anemia - Surgical History Past Surgical History?: Yes Hx Open Heart Surgery: No Hx Cholecystectomy: No Hx Appendectomy: No Hx Breast Surgery: No Additional Surgical History: x 2 - Social History Smoking Status: Current Every Day Smoker Substance Use Type: Alcohol, Cocaine - Medications Home Medications: Home Medications Medication Instructions Recorded Confirmed Last Taken Type Sulfamethoxazole/Trimethoprim 1 each PO Q12HR #10 tablet 07/14/18 Unknown Rx [Bactrim DS TAB] Ziprasidone [Geodon] 20 mg PO BID #60 capsule 07/14/18 Unknown Rx Nystas/Diphen/Xyl Visc/Mylanta 30 ml MM TID #450 ml 08/09/18 Unknown Rx [Magic Mouthwash] ED Physical Exam - General Limitations: No Limitations General appearance: alert, in no apparent distress - Head Head exam: Present: atraumatic, normocephalic - Eye Eye exam: Present: normal appearance, PERRL, EOMI. Absent: scleral icterus, conjunctival injection Pupils: Present: normal accommodation - ENT ENT exam: Present: normal exam, normal orophraynx, mucous membranes moist, TM's normal bilaterally, other (cracking to the oral fissures) - Neck Neck exam: Present: normal inspection, full ROM - Respiratory Respiratory exam: Present: normal lung sounds bilaterally. Absent: respiratory distress, wheezes, rales, chest wall tenderness, accessory muscle use, decreased breath sounds - Cardiovascular Cardiovascular Exam: Present: regular rate, normal rhythm. Absent: systolic murmur, diastolic murmur, rubs, gallop - GI/Abdominal GI/Abdominal exam: Present: soft, normal bowel sounds - Extremities Exam Extremities exam: Present: normal inspection - Back Exam Back exam: Present: normal inspection - Neurological Exam Neurological exam: Present: alert, oriented X3 - Psychiatric Psychiatric exam: Present: normal affect, normal mood - Skin Skin exam: Present: warm, dry, intact, normal color. Absent: rash ED Course Vital Signs 08/08/18 20:34 Temperature 97.5 F L Pulse Rate 92 H Respiratory 16 Rate Blood Pressure 159/94 O2 Sat by Pulse 100 Oximetry ED Medical Decision Making - Medical Decision Making Mrs. Jones was seen and evaluated by the mental health risk consulting treasury director, who deemed her safe for follow-up for outpatient therapy for rehabilitation. No current suicidal homicidal ideation.. See his note for more details. He does acknowledge that she does have some issues with currently of sound judgment. Regards to the mouth sore. She sees also has likely some nutrition deficiencies or even some early first begin into a ball causing some angular chelitis Critical care attestation.: If time is entered above; I have spent that time in minutes in the direct care of this critically ill patient, excluding procedure time. ED Disposition Clinical Impression: Angular cheilitis, Substance abuse Disposition: DC-01 TO HOME OR SELFCARE Is pt being admited?: No Does the pt Need Aspirin: No Condition: Stable Instructions: Abuse of Alcohol (ED), Polysubstance Abuse (ED) Prescriptions: Nystas/Diphen/Xyl Visc/Mylanta [Magic Mouthwash] 30 ml MM TID #450 ml Referrals: AMIE DAS MD [Primary Care Provider] - 3-5 Days
== END 2018-08-09 02:50 | disposition home or self-care (01) ==
LOC: ED 20:23
DX: K13.0 Diseases of lips (principal); F14.10 Cocaine abuse, uncomplicated; F17.200 Nicotine dependence, unspecified, uncomplicated
CPT/HCPCS: 80307; 81001; 81025

== ENCOUNTER 2018-09-14 08:51 | Emergency (ER) | payer OTHER ==
[2018-09-14 08:56] VITALS: BP 138/83
[2018-09-14] MEDS ORDERED: VICKS SINEX NS ONE (10:35)
--- NOTE | 2018-09-14 10:43 | Emergency Department Report ---
Minor Respiratory - HPI Chief Complaint: Upper Respiratory Infection Stated Complaint: ZEB Duration: couple of weeks. Other History: 33-year-old -Iranian female with a history of polysubstance abuse consistent of alcohol cocaine and marijuana comes in today stating that last night she couldn't breathe through her nose. Patient reports this is been going on for a couple weeks. Patient admits to intermittent runny nose most complaint is nasal congestion. Patient reports she's been taking Sudafed but no relief. ED Review of Systems ROS: Stated complaint: ZEB Other details as noted in HPI ED Past Medical Hx - Past Medical History Hx Congestive Heart Failure: No Hx Diabetes: No Hx Sickle Cell Disease: No Hx Asthma: No Hx COPD: No Hx HIV: No Additional medical history: iron deficiency Anemia - Surgical History Hx Open Heart Surgery: No Hx Cholecystectomy: No Hx Appendectomy: No Hx Breast Surgery: No Additional Surgical History: x 2 - Social History Smoking Status: Never Smoker Substance Use Type: None - Medications Home Medications: Home Medications Medication Instructions Recorded Confirmed Last Taken Type Sulfamethoxazole/Trimethoprim 1 each PO Q12HR #10 tablet 07/14/18 Unknown Rx [Bactrim DS TAB] Ziprasidone [Geodon] 20 mg PO BID #60 capsule 07/14/18 Unknown Rx Nystas/Diphen/Xyl Visc/Mylanta 30 ml MM TID #450 ml 08/09/18 Unknown Rx [Magic Mouthwash] Fluticasone [Flonase] 1 spray NS QDAY #1 bottle 09/14/18 Unknown Rx Minor Respiratory Exam - Exam General: Vital signs noted. No distress. Alert and acting appropriately. HEENT: Yes Moist Mucous Membranes, No Pharyngeal Erythema, No Pharyngeal Exudates, No Rhinorrhea (right turbinates occluded with mucus), No Conjuctival Injection, No Frontal Tenderness, No Maxillary Tenderness Ear: Neither TM Bulge, Neither TM Erythema, Neither EAC Pain, Neither EAC Discharge Neck: Yes Supple, No Adenopathy Lungs: Yes Good Air Exchange, No Wheezes, No Ronchi, No Stridor, No Cough, No Labored Respirations, No Retractions, No Use of Accessory Muscles, No Other Abnormal Lung Sounds Heart: Yes Regular, No Murmur Abdomen: Yes Normal Bowel Sounds, No Tenderness, No Peritoneal Signs Skin: No Rash, No Edema Neurologic: Alert and oriented, no deficits. Musculoskeletal: Unremarkable. ED Course Vital Signs 09/14/18 08:53 Temperature 97.9 F Pulse Rate 84 Respiratory 18 Rate Blood Pressure 138/83 O2 Sat by Pulse 100 Oximetry - Reevaluation(s) Reevaluation #1: 09/14/18 11:17 Patient reports she feels somewhat better since having the Afrin nasal spray to her nostrils. ED Medical Decision Making - Medical Decision Making Patient has been evaluated by this provider in fast track. Provider had ordered Afrin from pharmacy to administer 2 patient to her right nostril. We'll discharge patient home on Flonase and referral to primary care provider. Critical care attestation.: If time is entered above; I have spent that time in minutes in the direct care of this critically ill patient, excluding procedure time. ED Disposition Clinical Impression: Nasal congestion with rhinorrhea Disposition: DC-01 TO HOME OR SELFCARE Is pt being admited?: No Does the pt Need Aspirin: No Condition: Stable Instructions: Allergic Rhinitis (ED), Fluticasone (Into the nose) Additional Instructions: Take medication as prescribed. Follow-up with the primary care provider if her symptoms persist or gets worse. Prescriptions: Fluticasone [Flonase] 1 spray NS QDAY #1 bottle
== END 2018-09-14 12:27 | disposition home or self-care (01) ==
LOC: ED 08:51
DX: R09.81 Nasal congestion (principal); J34.89 Other specified disorders of nose and nasal sinuses; F12.10 Cannabis abuse, uncomplicated; F14.10 Cocaine abuse, uncomplicated; Z86.2 Personal history of diseases of the blood and blood-forming organs and certain disorders involving the immune mechanism
CPT/HCPCS: 99283

== ENCOUNTER 2018-09-18 01:13 | Emergency (ER) | payer OTHER ==
--- NOTE | 2018-09-18 03:27 | Emergency Department Report ---
ED General Adult HPI - General Chief complaint: Dizziness Stated complaint: CHECK HEMOGLOBIN/VAG INFECTION Time Seen by Provider: 09/18/18 03:20 Source: patient Mode of arrival: Ambulatory Limitations: No Limitations - History of Present Illness Initial comments: Patient is 33 years old female with history of chronic anemia due to heavy menstrual period. Patient presented to the ER stating that she feels dizzy for the last 2 weeks and she thinking this is most likely related to her anemia. Patient also complaining of vaginal discharge for the last 2 weeks. Described it as yellowish no odour. Patient denied any fever or chills. No chest pain or shortness of breath or abdominal pain. - Related Data Previous Rx's Medication Instructions Recorded Last Taken Type Sulfamethoxazole/Trimethoprim 1 each PO Q12HR #10 tablet 07/14/18 Unknown Rx [Bactrim DS TAB] Ziprasidone [Geodon] 20 mg PO BID #60 capsule 07/14/18 Unknown Rx Nystas/Diphen/Xyl Visc/Mylanta 30 ml MM TID #450 ml 08/09/18 Unknown Rx [Magic Mouthwash] Fluticasone [Flonase] 1 spray NS QDAY #1 bottle 09/14/18 Unknown Rx Allergies Allergy/AdvReac Type Severity Reaction Status Date / Time No Known Allergies Allergy Verified 09/14/18 08:53 ED Review of Systems ROS: Stated complaint: CHECK HEMOGLOBIN/VAG INFECTION Other details as noted in HPI Comment: All other systems reviewed and negative Constitutional: denies: chills, fever Respiratory: denies: cough, shortness of breath, SOB with exertion, wheezing Cardiovascular: denies: chest pain, palpitations Gastrointestinal: denies: abdominal pain, nausea Musculoskeletal: denies: back pain Neurological: denies: headache, weakness, numbness, paresthesias, confusion, abnormal gait ED Past Medical Hx - Past Medical History Hx Congestive Heart Failure: No Hx Diabetes: No Hx Sickle Cell Disease: No Hx Asthma: No Hx COPD: No Hx HIV: No Additional medical history: iron deficiency Anemia - Surgical History Hx Open Heart Surgery: No Hx Cholecystectomy: No Hx Appendectomy: No Hx Breast Surgery: No Additional Surgical History: x 2 - Social History Smoking Status: Current Every Day Smoker Substance Use Type: None - Medications Home Medications: Home Medications Medication Instructions Recorded Confirmed Last Taken Type Sulfamethoxazole/Trimethoprim 1 each PO Q12HR #10 tablet 07/14/18 Unknown Rx [Bactrim DS TAB] Ziprasidone [Geodon] 20 mg PO BID #60 capsule 07/14/18 Unknown Rx Nystas/Diphen/Xyl Visc/Mylanta 30 ml MM TID #450 ml 08/09/18 Unknown Rx [Magic Mouthwash] Fluticasone [Flonase] 1 spray NS QDAY #1 bottle 09/14/18 Unknown Rx ED Physical Exam - General Limitations: No Limitations General appearance: alert, in no apparent distress - Head Head exam: Present: atraumatic, normocephalic, normal inspection - Eye Eye exam: Present: normal appearance - ENT ENT exam: Present: normal exam, normal orophraynx, mucous membranes moist - Neck Neck exam: Present: normal inspection, full ROM. Absent: tenderness, meningismus, lymphadenopathy, thyromegaly - Respiratory Respiratory exam: Present: normal lung sounds bilaterally - Cardiovascular Cardiovascular Exam: Present: regular rate, normal rhythm, normal heart sounds - GI/Abdominal GI/Abdominal exam: Present: soft, normal bowel sounds. Absent: distended, tenderness, guarding, rebound, rigid, organomegaly, mass, bruit, pulsatile mass, hernia - Extremities Exam Extremities exam: Present: normal inspection, full ROM, normal capillary refill. Absent: pedal edema, calf tenderness - Back Exam Back exam: Present: normal inspection, full ROM. Absent: CVA tenderness (R), CVA tenderness (L), muscle spasm, paraspinal tenderness, vertebral tenderness, rash noted - Neurological Exam Neurological exam: Present: alert, oriented X3, CN II-XII intact, reflexes normal - Skin Skin exam: Present: warm, intact, normal color ED Course Vital Signs 09/18/18 01:30 Temperature 97.8 F Pulse Rate 79 Respiratory 18 Rate Blood Pressure 134/66 O2 Sat by Pulse 99 Oximetry ED Medical Decision Making - Lab Data Result diagrams: 09/18/18 03:31 09/18/18 03:31 - Medical Decision Making Patient is 33 years old female with history of chronic anemia due to heavy menstrual period. Patient presented to the ER stating that she feels dizzy for the last 2 weeks and she thinking this is most likely related to her anemia. Patient also complaining of vaginal discharge for the last 2 weeks. Described it as yellowish no odour. Patient denied any fever or chills. No chest pain or shortness of breath or abdominal pain. Patient labs reviewed and it showed a hemoglobin of 7. Patient stated that she has not been taking her iron pill. Patient does not warrant transfusion at this moment. I will prescribe ferrous sulfate and advised patient to follow up with her primary care physician for follow-up. I also advised the patient to return to the ER if symptoms get worse. Critical care attestation.: If time is entered above; I have spent that time in minutes in the direct care of this critically ill patient, excluding procedure time. ED Disposition Clinical Impression: Iron deficiency anemia Disposition: DC-01 TO HOME OR SELFCARE Is pt being admited?: No Condition: Stable Referrals: AMIE DAS MD [Primary Care Provider] - 3-5 Days
[2018-09-18 03:41] LABS: Bilirubin,Urine NEG (Negative); Blood,Urine NEG (Negative); Color,Urine Yellow (Yellow); Mucus,Urine FEW /HPF; Protein,Urine <15 mg/dL mg/dL (Negative); Urobilinogen,Urine < 2.0 mg/dL (<2.0)
[2018-09-18 04:16] LABS: Mean Corpuscular HGB Conc 31 % (30-34); Platelet Count 345 K/mm3 (140-440); Red Blood Count 3.63 M/mm3 (3.65-5.03)
[2018-09-18 04:20] LABS: BUN/Creatinine Ratio 13; Blood Urea Nitrogen 8 mg/dL (7-17); Calcium 8.6 mg/dL (8.4-10.2); Hemolysis Index 2
[2018-09-18 04:24] LABS: Mean Corpuscular Volume 63 fl (79-97); Red Cell Distribution Width 23.7 % (13.2-15.2)
[2018-09-18 05:38] LABS: Hypochromasia 2+; Total Cells Counted 100
[2018-09-18 05:39] LABS: Large Platelets 1+; Platelet Estimate Appears Decreased; Target Cells 1+; Tear Drop Cells 1+
[2018-09-18 09:24] VITALS: BP 114/62
== END 2018-09-18 09:00 | disposition home or self-care (01) ==
LOC: ED 01:13
DX: D50.9 Iron deficiency anemia, unspecified (principal); R42 Dizziness and giddiness; N89.8 Other specified noninflammatory disorders of vagina; F17.200 Nicotine dependence, unspecified, uncomplicated
CPT/HCPCS: 36415; 80048; 81001; 84703; 85007; 85025; 99283

== ENCOUNTER 2018-12-04 13:52 | Emergency (ER) | payer SELFPAY ==
--- NOTE | 2018-12-04 14:16 | Event Note ---
ED Screening Note ED Screening Note: cc vaginal slime co for std lmp 3 w ago pmh none rx none This initial assessment/diagnostic orders/clinical plan/treatment(s) is/are subject to change based on patients health status, clinical progression and re- assessment by fellow clinical providers in the ED. Further treatment and workup at subsequent clinical providers discretion. Patient/guardian urged not to elope from the ED as their condition may be serious if not clinically assessed and managed. Initial orders include: ua wet prep
[2018-12-04 16:14] LABS: HCG Qualitative,Urine Negative (Negative)
[2018-12-04 16:20] LABS: Bilirubin,Urine NEG (Negative); Blood,Urine NEG (Negative); Color,Urine Yellow (Yellow); Mucus,Urine FEW /HPF; Protein,Urine <15 mg/dL mg/dL (Negative); Urobilinogen,Urine < 2.0 mg/dL (<2.0); WBC,Urine < 1.0 /HPF (0.0-6.0)
--- NOTE | 2018-12-04 17:33 | Emergency Department Report ---
ED General Adult HPI - General Chief complaint: Skin Rash Stated complaint: RASH BI SHOULDER/STD CHECK Time Seen by Provider: 12/04/18 14:15 Source: patient Mode of arrival: Ambulatory Limitations: No Limitations - History of Present Illness Initial comments: This is a 33-year-old [place] female who presents to emergency room with a pruritic rash to bilateral upper extremity for 2 days. Patient reports increased exposure to the past few days and noticed a rash 2 days ago. She has not tried anything [id number] for symptomatic relief. She also reports finals smelling white vaginal discharge and vaginal irritation or pain for 1 to 2 weeks. Reports a new partner with unprotected intercourse. LMP 09/02/2018. Denies urinary frequency, urgency, dysuria, pelvic pain, back pain. Onset/Timin -: days(s) Location: upper extremity Radiation: non-radiation Severity scale (0 -10): 0 Quality: other (itching) Consistency: intermittent Improves with: none Worsens with: none Associated Symptoms: other (vaginal discharge) Treatments Prior to Arrival: none - Related Data Previous Rx's Medication Instructions Recorded Last Taken Type Sulfamethoxazole/Trimethoprim 1 each PO Q12HR #10 tablet 07/14/18 Unknown Rx [Bactrim DS TAB] Ziprasidone [Geodon] 20 mg PO BID #60 capsule 07/14/18 Unknown Rx Nystas/Diphen/Xyl Visc/Mylanta 30 ml MM TID #450 ml 08/09/18 Unknown Rx [Magic Mouthwash] Fluticasone [Flonase] 1 spray NS QDAY #1 bottle 09/14/18 Unknown Rx Docusate Sodium [Colace] 100 mg PO BID PRN #60 capsule 09/18/18 Unknown Rx Ferrous Sulfate [Feosol 325 MG tab] 325 mg PO BID #60 tablet 09/18/18 Unknown Rx metroNIDAZOLE [Flagyl TAB] 500 mg PO Q12HR #14 tab 12/04/18 Unknown Rx Allergies Allergy/AdvReac Type Severity Reaction Status Date / Time No Known Allergies Allergy Verified 09/14/18 08:53 ED Review of Systems ROS: Stated complaint: RASH BI SHOULDER/STD CHECK Other details as noted in HPI Constitutional: denies: chills, fever Respiratory: denies: cough, shortness of breath, wheezing Cardiovascular: denies: chest pain, palpitations Gastrointestinal: denies: abdominal pain, nausea, diarrhea Genitourinary: discharge. denies: urgency, dysuria Musculoskeletal: denies: back pain, joint swelling, arthralgia Skin: rash. denies: lesions Neurological: denies: headache, weakness, paresthesias Psychiatric: denies: anxiety, depression ED Past Medical Hx - Past Medical History Hx Congestive Heart Failure: No Hx Diabetes: No Hx Sickle Cell Disease: No Hx Asthma: No Hx COPD: No Hx HIV: No Additional medical history: iron deficiency Anemia - Surgical History Hx Open Heart Surgery: No Hx Cholecystectomy: No Hx Appendectomy: No Hx Breast Surgery: No Additional Surgical History: x 2 - Social History Smoking Status: Current Every Day Smoker Substance Use Type: Alcohol - Medications Home Medications: Home Medications Medication Instructions Recorded Confirmed Last Taken Type Sulfamethoxazole/Trimethoprim 1 each PO Q12HR #10 tablet 07/14/18 Unknown Rx [Bactrim DS TAB] Ziprasidone [Geodon] 20 mg PO BID #60 capsule 07/14/18 Unknown Rx Nystas/Diphen/Xyl Visc/Mylanta 30 ml MM TID #450 ml 08/09/18 Unknown Rx [Magic Mouthwash] Fluticasone [Flonase] 1 spray NS QDAY #1 bottle 09/14/18 Unknown Rx Docusate Sodium [Colace] 100 mg PO BID PRN #60 capsule 09/18/18 Unknown Rx Ferrous Sulfate [Feosol 325 MG tab] 325 mg PO BID #60 tablet 09/18/18 Unknown Rx metroNIDAZOLE [Flagyl TAB] 500 mg PO Q12HR #14 tab 12/04/18 Unknown Rx ED Physical Exam - General Limitations: No Limitations General appearance: alert, in no apparent distress - Respiratory Respiratory exam: Present: normal lung sounds bilaterally. Absent: respiratory distress - Cardiovascular Cardiovascular Exam: Present: regular rate, normal rhythm. Absent: systolic murmur, diastolic murmur, rubs, gallop - GI/Abdominal GI/Abdominal exam: Present: soft, normal bowel sounds. Absent: distended, tenderness, guarding, rebound, rigid - External exam: Present: normal external exam. Absent: erythema, swelling, lesions, lacerations, ecchymosis, bleeding Speculum exam: Present: vaginal discharge (malodorous white curdy ). Absent: erythema, cervical discharge, vaginal bleeding, foreign body, tissue, laceration Bi-manual exam: Present: normal bi-manual exam - Back Exam Back exam: Absent: CVA tenderness (R), CVA tenderness (L) - Neurological Exam Neurological exam: Present: alert, oriented X3 - Psychiatric Psychiatric exam: Present: normal affect, normal mood - Skin Skin exam: Present: warm, dry, intact, normal color. Absent: rash ED Course Vital Signs 12/04/18 14:03 Temperature 97.3 F L Pulse Rate 91 H Respiratory 18 Rate Blood Pressure 144/86 O2 Sat by Pulse 97 Oximetry ED Medical Decision Making - Lab Data Lab Results 12/04/18 Range/Units 15:50 Urine Color Yellow (Yellow) Urine Turbidity Slightly-cloudy (Clear) Urine pH 5.0 (5.0-7.0) Ur Specific [place] 1.021 (1.003-1.030) Urine Protein <15 mg/dl (Negative) mg/dL Urine Glucose (UA) Neg (Negative) mg/dL Urine Ketones Neg (Negative) mg/dL Urine Blood Neg (Negative) Urine Nitrite Neg (Negative) Ur Reducing Substances Not Reportable Urine Bilirubin Neg (Negative) Urine Ictotest Not Reportable Urine Urobilinogen < 2.0 (<2.0) mg/dL Ur Leukocyte Esterase Neg (Negative) Urine WBC (Auto) < 1.0 (0.0-6.0) /HPF Urine RBC (Auto) 1.0 (0.0-6.0) /HPF U Epithel Cells (Auto) 4.0 (0-13.0) /HPF Urine Mucus Few /HPF Urine HCG, Qual Negative (Negative) - Medical Decision Making Patient was examined by me. Vitals are normal and patient is in no acute distress. Obtained a urinalysis, urine hCG, wet prep, and gonorrhea and chlamydia via pelvic exam. Urinalysis and tests are remarkable, wet prep positive for clue cells and polymorphonuclear cells, negative yeast and Trichomonas. Patient empirically treated with Rocephin and azithromycin to cover gonorrhea and chlamydia. Instructed to return in 3-5 days for pending lab results. Start metronidazole for acute vaginitis. Referral to health department and dental laboratory technology teacher for further STD screen him. Plan discussed with patient to discharge home and treat outpatient. Patient discharged home in stable condition. Follow up with PCP in 2-3 days. Critical care attestation.: If time is entered above; I have spent that time in minutes in the direct care of this critically ill patient, excluding procedure time. ED Disposition Clinical Impression: Exposure to STD, Vaginal discharge, Bacterial vaginitis Disposition: TO HOME OR SELFCARE Is pt being admited?: No Does the pt Need Aspirin: No Condition: Stable Instructions: Safe Sex (ED), Sexually Transmitted Diseases (ED), Bacterial Vaginosis (ED) Additional Instructions: Avoid drinking alcohol while taking antibiotics and for 24 hours after completion. Return to the emergency room in 3-5 days for pending lab results. Continue safe sexual intercourse. Follow up with Primary Care Provider or health department for complete sexually transmitted screening. Prescriptions: metroNIDAZOLE [Flagyl TAB] 500 mg PO Q12HR #14 tab Referrals: AMIE DAS MD [Primary Care Provider] - 3-5 Days Forms: STI Treatment and Prevention Time of Disposition: 18:58
[2018-12-04] MEDS ORDERED: ROCEPHIN IM ONE (18:53)
[2018-12-04] MEDS ORDERED: XYLOCAINE 1% MPF 5 mL INFILTRATI ONE (18:53)
[2018-12-04] MEDS ORDERED: ZITHROMAX PO ONE (18:53)
[2018-12-04 19:14] VITALS: BP 154/89
== END 2018-12-04 19:10 | disposition home or self-care (01) ==
LOC: ED 13:52
DX: N76.0 Acute vaginitis (principal); B96.89 Other specified bacterial agents as the cause of diseases classified elsewhere; F17.200 Nicotine dependence, unspecified, uncomplicated; Z20.2 Contact with and (suspected) exposure to infections with a predominantly sexual mode of transmission
CPT/HCPCS: 81001; 81025; 87210; 87591; 96372; 99283; J0696

== ENCOUNTER 2019-01-10 07:05 | Emergency (ER) | payer SELFPAY ==
[2019-01-10 07:23] VITALS: BP 143/95
[2019-01-10 07:41] LABS: Basophils # (Auto) 0.2 K/mm3 (0.0-0.1); Basophils % (Auto) 2.7 % (0.0-1.8); Eosinophils # (Auto) 0.5 K/mm3 (0.0-0.4); Eosinophils % (Auto) 8.1 % (0.0-4.3); Hematocrit 30.7 % (30.3-42.9); Hemoglobin 9.9 gm/dl (10.1-14.3); Lymphocytes # (Auto) 2.4 K/mm3 (1.2-5.4); Lymphocytes % (Auto) 35.9 % (13.4-35.0); Mean Corpuscular HGB Conc 32 % (30-34); Mean Corpuscular Volume 78 fl (79-97); Monocytes # (Auto) 0.5 K/mm3 (0.0-0.8); Monocytes % (Auto) 7.6 % (0.0-7.3); Platelet Count 316 K/mm3 (140-440); Red Blood Count 3.96 M/mm3 (3.65-5.03)
[2019-01-10 07:52] LABS: Red Cell Distribution Width 22.2 % (13.2-15.2)
[2019-01-10 07:56] LABS: BUN/Creatinine Ratio 16; Blood Urea Nitrogen 11 mg/dL (7-17); Calcium 8.9 mg/dL (8.4-10.2); Hemolysis Index 3
--- NOTE | 2019-01-10 08:21 | Emergency Department Report ---
ED General Adult HPI - General Chief complaint: Arrhythmia/Palpitations Stated complaint: DIZZINESS/LIGHTHEADED/FATIGUE Time Seen by Provider: 01/10/19 08:00 Source: patient Mode of arrival: Ambulatory Limitations: No Limitations - History of Present Illness Initial comments: 33 year old female that tells me she is not here for palpitations at all. She refused EKG per the nursing staff. She states that she is here because she thinks that her blood count is low due to dysfunctional uterine bleeding. Her last transfusion was 6 months ago. She is not short of breath. She states that she takes iron perhaps only once a day. She does not complain of active vaginal bleeding but she states that she is "on her period" -: Gradual Associated Symptoms: denies other symptoms, weakness (mild) - Related Data Previous Rx's Medication Instructions Recorded Last Taken Type Sulfamethoxazole/Trimethoprim 1 each PO Q12HR #10 tablet 07/14/18 Unknown Rx [Bactrim DS TAB] Ziprasidone [Geodon] 20 mg PO BID #60 capsule 07/14/18 Unknown Rx Nystas/Diphen/Xyl Visc/Mylanta 30 ml MM TID #450 ml 08/09/18 Unknown Rx [Magic Mouthwash] Fluticasone [Flonase] 1 spray NS QDAY #1 bottle 09/14/18 Unknown Rx Docusate Sodium [Colace] 100 mg PO BID PRN #60 capsule 09/18/18 Unknown Rx Ferrous Sulfate [Feosol 325 MG tab] 325 mg PO BID #60 tablet 09/18/18 Unknown Rx metroNIDAZOLE [Flagyl TAB] 500 mg PO Q12HR #14 tab 12/04/18 Unknown Rx Ferrous Gluconate [Ferrous 324 mg PO TID #20 tablet 01/10/19 Unknown Rx Gluconate 324 MG] Allergies Allergy/AdvReac Type Severity Reaction Status Date / Time No Known Allergies Allergy Verified 09/14/18 08:53 ED Review of Systems ROS: Stated complaint: DIZZINESS/LIGHTHEADED/FATIGUE Other details as noted in HPI Constitutional: weakness. denies: chills, fever Eyes: denies: eye pain, eye discharge, vision change ENT: denies: ear pain, throat pain Respiratory: denies: cough, shortness of breath, wheezing Cardiovascular: denies: chest pain, palpitations Endocrine: no symptoms reported Gastrointestinal: denies: abdominal pain, nausea, diarrhea Genitourinary: abnormal menses. denies: urgency, dysuria, discharge Musculoskeletal: denies: back pain, joint swelling, arthralgia Skin: denies: rash, lesions Neurological: denies: headache, weakness, paresthesias Psychiatric: denies: anxiety, depression Hematological/Lymphatic: denies: easy bleeding, easy bruising ED Past Medical Hx - Past Medical History Previous Medical History?: Yes Hx Congestive Heart Failure: No Hx Diabetes: No Hx Sickle Cell Disease: No Hx Asthma: No Hx COPD: No Hx HIV: No Additional medical history: iron deficiency Anemia - Surgical History Past Surgical History?: Yes Hx Open Heart Surgery: No Hx Cholecystectomy: No Hx Appendectomy: No Hx Breast Surgery: No Additional Surgical History: x 2 - Social History Smoking Status: Current Every Day Smoker Substance Use Type: None - Medications Home Medications: Home Medications Medication Instructions Recorded Confirmed Last Taken Type Sulfamethoxazole/Trimethoprim 1 each PO Q12HR #10 tablet 07/14/18 Unknown Rx [Bactrim DS TAB] Ziprasidone [Geodon] 20 mg PO BID #60 capsule 07/14/18 Unknown Rx Nystas/Diphen/Xyl Visc/Mylanta 30 ml MM TID #450 ml 08/09/18 Unknown Rx [Magic Mouthwash] Fluticasone [Flonase] 1 spray NS QDAY #1 bottle 09/14/18 Unknown Rx Docusate Sodium [Colace] 100 mg PO BID PRN #60 capsule 09/18/18 Unknown Rx Ferrous Sulfate [Feosol 325 MG tab] 325 mg PO BID #60 tablet 09/18/18 Unknown Rx metroNIDAZOLE [Flagyl TAB] 500 mg PO Q12HR #14 tab 12/04/18 Unknown Rx Ferrous Gluconate [Ferrous 324 mg PO TID #20 tablet 01/10/19 Unknown Rx Gluconate 324 MG] ED Physical Exam - General Limitations: No Limitations General appearance: alert, in no apparent distress - Head Head exam: Present: atraumatic, normocephalic - Eye Eye exam: Present: normal appearance - ENT ENT exam: Present: mucous membranes moist - Neck Neck exam: Present: normal inspection - Respiratory Respiratory exam: Present: normal lung sounds bilaterally. Absent: respiratory distress - Cardiovascular Cardiovascular Exam: Present: regular rate, normal rhythm. Absent: systolic murmur, diastolic murmur, rubs, gallop - GI/Abdominal GI/Abdominal exam: Present: soft, normal bowel sounds. Absent: distended, tenderness, guarding, rebound, rigid - Extremities Exam Extremities exam: Present: normal inspection - Back Exam Back exam: Present: normal inspection - Neurological Exam Neurological exam: Present: alert, oriented X3, CN II-XII intact. Absent: motor sensory deficit - Psychiatric Psychiatric exam: Present: normal affect, normal mood - Skin Skin exam: Present: warm, dry, intact, normal color. Absent: rash ED Course Vital Signs 01/10/19 07:21 Temperature 97.7 F Pulse Rate 72 Respiratory 18 Rate Blood Pressure 143/95 O2 Sat by Pulse 100 Oximetry - Reevaluation(s) Reevaluation #1: Patient saw poorly cooperative secondary to I presume her schizophrenia. However she is not decompensated. She is appropriate for outpatient management. 01/10/19 08:19 ED Medical Decision Making - Lab Data Result diagrams: 01/10/19 07:25 01/10/19 07:25 Critical care attestation.: If time is entered above; I have spent that time in minutes in the direct care of this critically ill patient, excluding procedure time. ED Disposition Clinical Impression: Dysfunctional uterine bleeding Schizophrenia Qualifiers: Schizophrenia type: other Qualified Code(s): F20.89 - Other schizophrenia; F20.8 - Other schizophrenia Anemia Qualifiers: Anemia type: iron deficiency Iron deficiency anemia type: chronic blood loss Qualified Code(s): D50.0 - Iron deficiency anemia secondary to blood loss (chronic) Disposition: - TO HOME OR SELFCARE Is pt being admited?: No Does the pt Need Aspirin: No Condition: Stable Instructions: Dysfunctional Uterine Bleeding (ED), Iron Rich Diet (ED), Anemia (ED) Prescriptions: Ferrous Gluconate [Ferrous Gluconate 324 MG] 324 mg PO TID #20 tablet Referrals: CHEY JOYNER MD [Primary Care Provider] - 3-5 Days LENA JAVED MD [Staff Physician] - 3-5 Days Time of Disposition: 08:21
== END 2019-01-10 08:52 | disposition home or self-care (01) ==
LOC: ED 07:05
DX: N93.8 Other specified abnormal uterine and vaginal bleeding (principal); D50.0 Iron deficiency anemia secondary to blood loss (chronic); F20.9 Schizophrenia, unspecified; F17.200 Nicotine dependence, unspecified, uncomplicated; Z79.899 Other long term (current) drug therapy
CPT/HCPCS: 36415; 80048; 84484; 84703; 85025

== ENCOUNTER 2019-02-26 09:10 | Emergency (ER) | payer SELFPAY ==
[2019-02-26 09:15] VITALS: BP 143/91
== END 2019-02-26 09:40 | disposition left against medical advice (07) ==
LOC: ED 09:10
DX: N92.4 Excessive bleeding in the premenopausal period (principal); Z53.21 Procedure and treatment not carried out due to patient leaving prior to being seen by health care provider

== ENCOUNTER 2019-02-26 22:34 | Emergency (ER) | payer SELFPAY ==
[2019-02-26 22:43] VITALS: BP 137/86
--- NOTE | 2019-02-26 23:10 | Event Note ---
ED Screening Note Date of service: 02/26/19 Time: 23:07 ED Screening Note: 33 y/o female c/o heavy bleeding and pelvic pain. This initial assessment/diagnostic orders/clinical plan/treatment(s) is/are subject to change based on patients health status, clinical progression and re- assessment by fellow clinical providers in the ED. Further treatment and workup at subsequent clinical providers discretion. Patient/guardian urged not to elope from the ED as their condition may be serious if not clinically assessed and managed. Initial orders include:
[2019-02-27 00:02] LABS: Alanine Aminotransferase 6 units/L (7-56); Albumin 4.4 g/dL (3.9-5); BUN/Creatinine Ratio 19; Blood Urea Nitrogen 13 mg/dL (7-17); Calcium 9.1 mg/dL (8.4-10.2); Hemolysis Index 0
[2019-02-27 00:08] LABS: Basophils # (Auto) 0.2 K/mm3 (0.0-0.1); Eosinophils # (Auto) 0.5 K/mm3 (0.0-0.4); Eosinophils % (Auto) 4.4 % (0.0-4.3); Hematocrit 23.9 % (30.3-42.9); Hemoglobin 7.6 gm/dl (10.1-14.3); Lymphocytes # (Auto) 2.3 K/mm3 (1.2-5.4); Lymphocytes % (Auto) 20.9 % (13.4-35.0); Mean Corpuscular HGB Conc 32 % (30-34); Monocytes # (Auto) 0.6 K/mm3 (0.0-0.8); Monocytes % (Auto) 5.7 % (0.0-7.3); Platelet Count 313 K/mm3 (140-440); Red Blood Count 3.58 M/mm3 (3.65-5.03)
[2019-02-27 00:18] LABS: Amphetamine Screen,Urine PRESUMPTIVE NEGATIVE; Benzodiazepines Screen,Urine PRESUMPTIVE NEGATIVE; Cannabinoid Screen,Urine PRESUMPTIVE NEGATIVE; Methadone Screen,Urine PRESUMPTIVE NEGATIVE; Opiate Screen,Urine PRESUMPTIVE NEGATIVE
[2019-02-27 00:25] LABS: Mean Corpuscular Volume 67 fl (79-97); Red Cell Distribution Width 21.2 % (13.2-15.2)
[2019-02-27 00:27] LABS: Bilirubin,Urine NEG (Negative); Blood,Urine LG (Negative); Color,Urine Red (Yellow); Urobilinogen,Urine < 2.0 mg/dL (<2.0)
[2019-02-27 00:28] LABS: RBC,Urine > 182.0 /HPF (0.0-6.0); WBC,Urine > 182.0 /HPF (0.0-6.0)
[2019-02-27 00:43] LABS: Cocaine Screen,Urine PRESUMPTIVE POSITIVE
--- NOTE | 2019-02-27 01:06 | Emergency Department Report ---
ED Female HPI - General Chief complaint: Vaginal Bleeding Stated complaint: HEAVY BLEEDING,CRAMPING Time Seen by Provider: 02/26/19 23:50 Source: patient Mode of arrival: Ambulatory Limitations: No Limitations - History of Present Illness Initial comments: Patient is a 33-year-old female that presents emergency room with complaints of heavy menses 6 months. Patient states she's had transfusions in the past due to her having menstruation. Patient states she has not seen an PHOTOVOLTAIC TESTING TECHNICIAN for this. Patient states that she started to feel tired. Patient denies pain. Patient denies fever and chills. Patient states she is at the end of her.. Patient states she is not taking any vitamins or iron. MD Complaint: vaginal bleeding -: Gradual Severity: severe Severity scale (0 -10): 0 Quality: other (painless) Consistency: intermittent Improves with: none Worsens with: none Are you Now?: No Associated Symptoms: vaginal bleeding. denies: vaginal discharge, abdominal pain, nausea/vomiting, fever/chills, headaches, loss of appetite, dysuria, hematuria, rash, seizure, shortness of breath, syncope - Related Data Sexually active: Yes Previous Rx's Medication Instructions Recorded Last Taken Type Sulfamethoxazole/Trimethoprim 1 each PO Q12HR #10 tablet 07/14/18 Unknown Rx [Bactrim DS TAB] Ziprasidone [Geodon] 20 mg PO BID #60 capsule 07/14/18 Unknown Rx Nystas/Diphen/Xyl Visc/Mylanta 30 ml MM TID #450 ml 08/09/18 Unknown Rx [Magic Mouthwash] Fluticasone [Flonase] 1 spray NS QDAY #1 bottle 09/14/18 Unknown Rx Docusate Sodium [Colace] 100 mg PO BID PRN #60 capsule 09/18/18 Unknown Rx Ferrous Sulfate [Feosol 325 MG tab] 325 mg PO BID #60 tablet 09/18/18 Unknown Rx metroNIDAZOLE [Flagyl TAB] 500 mg PO Q12HR #14 tab 12/04/18 Unknown Rx Ferrous Gluconate [Ferrous 324 mg PO TID #20 tablet 01/10/19 Unknown Rx Gluconate 324 MG] Iron Fum,Ps/Folic/Bcomp,C No.9 1 each PO BID 30 Days #60 capsule 02/27/19 Unknown Rx [Integra Plus Capsule] Allergies Allergy/AdvReac Type Severity Reaction Status Date / Time No Known Allergies Allergy Verified 09/14/18 08:53 ED Review of Systems ROS: Stated complaint: HEAVY BLEEDING,CRAMPING Other details as noted in HPI Constitutional: malaise. denies: chills, fever Eyes: denies: eye pain, eye discharge, vision change ENT: denies: ear pain, throat pain Respiratory: denies: cough, shortness of breath, wheezing Cardiovascular: denies: chest pain, palpitations Endocrine: no symptoms reported Gastrointestinal: denies: abdominal pain, nausea, diarrhea Genitourinary: abnormal menses. denies: urgency, dysuria, discharge Musculoskeletal: denies: back pain, joint swelling, arthralgia Skin: denies: rash, lesions Neurological: denies: headache, paresthesias Psychiatric: denies: anxiety, depression Hematological/Lymphatic: denies: easy bleeding, easy bruising ED Past Medical Hx - Past Medical History Previous Medical History?: Yes Hx Hypertension: No Hx CVA: No Hx Heart Attack/AMI: No Hx Congestive Heart Failure: No Hx Diabetes: No Hx Deep Vein Thrombosis: No Hx Pulmonary Embolism: No Hx GERD: No Hx Liver Disease: No Hx Renal Disease: No Hx of Cancer: No Hx Sickle Cell Disease: No Hx Arthritis: No Hx Headaches / Migraines: No Hx Seizures: No Hx Kidney Stones: No Hx Psychiatric Treatment: No Hx Asthma: No Hx COPD: No Hx Tuberculosis: No Hx Dementia: No Hx HIV: No Additional medical history: iron deficiency Anemia, HEAVY MENSES WITH BLOOD TRANSFUSION - Surgical History Past Surgical History?: Yes Hx Coronary Stent: No Hx Open Heart Surgery: No Hx Pacemaker: No Hx Internal Defibrillator: No Hx Cholecystectomy: No Hx Appendectomy: No Hx Breast Surgery: No Additional Surgical History: x 2 - Family History Family history: no significant - Social History Smoking Status: Current Every Day Smoker Substance Use Type: Alcohol - Medications Home Medications: Home Medications Medication Instructions Recorded Confirmed Last Taken Type Sulfamethoxazole/Trimethoprim 1 each PO Q12HR #10 tablet 07/14/18 Unknown Rx [Bactrim DS TAB] Ziprasidone [Geodon] 20 mg PO BID #60 capsule 07/14/18 Unknown Rx Nystas/Diphen/Xyl Visc/Mylanta 30 ml MM TID #450 ml 08/09/18 Unknown Rx [Magic Mouthwash] Fluticasone [Flonase] 1 spray NS QDAY #1 bottle 09/14/18 Unknown Rx Docusate Sodium [Colace] 100 mg PO BID PRN #60 capsule 09/18/18 Unknown Rx Ferrous Sulfate [Feosol 325 MG tab] 325 mg PO BID #60 tablet 09/18/18 Unknown Rx metroNIDAZOLE [Flagyl TAB] 500 mg PO Q12HR #14 tab 12/04/18 Unknown Rx Ferrous Gluconate [Ferrous 324 mg PO TID #20 tablet 01/10/19 Unknown Rx Gluconate 324 MG] Iron Fum,Ps/Folic/Bcomp,C No.9 1 each PO BID 30 Days #60 capsule 02/27/19 Unknown Rx [Integra Plus Capsule] ED Physical Exam - General Limitations: No Limitations General appearance: alert, in no apparent distress - Head Head exam: Present: atraumatic, normocephalic - Eye Eye exam: Present: normal appearance, PERRL Pupils: Present: normal accommodation - ENT ENT exam: Present: mucous membranes moist - Neck Neck exam: Present: normal inspection - Respiratory Respiratory exam: Present: normal lung sounds bilaterally. Absent: respiratory distress, wheezes - Cardiovascular Cardiovascular Exam: Present: regular rate, normal rhythm. Absent: systolic murmur, diastolic murmur, rubs, gallop - GI/Abdominal GI/Abdominal exam: Present: soft, normal bowel sounds. Absent: distended, tenderness, guarding, rebound - Rectal Rectal exam: Present: deferred - Extremities Exam Extremities exam: Present: normal inspection - Back Exam Back exam: Present: normal inspection - Neurological Exam Neurological exam: Present: alert, oriented X3 - Psychiatric Psychiatric exam: Present: normal affect, normal mood - Skin Skin exam: Present: warm, dry, intact, normal color. Absent: rash ED Course Vital Signs 02/26/19 02/26/19 22:39 23:06 Temperature 98.3 F 98 F Pulse Rate 86 86 Respiratory 18 18 Rate Blood Pressure 137/86 Blood Pressure 137/86 [Left] O2 Sat by Pulse 98 100 Oximetry - Reevaluation(s) Reevaluation #1: I discussed all results with patient. I discussed plan of care with patient. Patient agrees with plan of care. Patient is stable for discharge. Patient will be discharged home. Patient given discharge instructions. Patient voiced understanding of discharge instructions. Nurse Annabel in the room the entire time I discussed results with patient. 10/10/19 01:04 ED Medical Decision Making - Lab Data Result diagrams: 02/26/19 23:22 02/26/19 23:22 - Medical Decision Making Lizet is a 33-year-old female that presents emergency room with complaints of heavy menses 6 months. Patient's labs unremarkable except except for severe anemia. Patient is at 7.6. Patient does not require transfusion at this time since she is above 7. Patient does not have a cardiac history. Patient referred to PHOTOVOLTAIC TESTING TECHNICIAN for further evaluation treatment. Patient is stable for discharge. Patient was discharged home. Patient's other labs unremarkable. Patient given iron supplement. - Differential Diagnosis heavy menses. Anemia. Critical care attestation.: If time is entered above; I have spent that time in minutes in the direct care of this critically ill patient, excluding procedure time. ED Disposition Clinical Impression: Iron deficiency anemia Qualifiers: Iron deficiency anemia type: unspecified iron deficiency Qualified Code(s): D50.9 - Iron deficiency anemia, unspecified Heavy menses Qualifiers: Menorrahagia type: with regular cycle Qualified Code(s): N92.0 - Excessive and frequent menstruation with regular cycle Disposition: DC-01 TO HOME OR SELFCARE Is pt being admited?: No Does the pt Need Aspirin: No Condition: Stable Instructions: Menorrhagia (ED) Additional Instructions: Patient to follow-up with primary care in 2-3 days. Patient to follow-up with SEAL EXTRUSION OPERATOR within 2 days. Patient to return to ER if condition worsens. Patient to rest. Patient to increase water. Patient to take meds as directed. Patient's take Tylenol when necessary for pain. Prescriptions: Iron Fum,Ps/Folic/Bcomp,C No.9 [Integra Plus Capsule] 1 each PO BID 30 Days #60 capsule Referrals: NELSY DALEY MD [Staff Physician] - [facility] Time of Disposition: 01:07
== END 2019-02-27 01:27 | disposition home or self-care (01) ==
LOC: ED 22:34
DX: N92.0 Excessive and frequent menstruation with regular cycle (principal); D50.9 Iron deficiency anemia, unspecified; F17.200 Nicotine dependence, unspecified, uncomplicated; Z98.890 Other specified postprocedural states
CPT/HCPCS: 36415; 80053; 80307; 81001; 84703; 85025

== ENCOUNTER 2019-03-20 16:57 | Emergency (ER) | payer SELFPAY ==
--- NOTE | 2019-03-20 17:22 | Emergency Department Report ---
Blank Doc - Documentation Documentation: 33-year-old female that presents with detox and body aches from alcohol. Last drink was 2 days ago. This initial assessment/diagnostic orders/clinical plan/treatment(s) is/are subject to change based on patient's health status, clinical progression and re- assessment by fellow clinical providers in the ED. Further treatment and workup at subsequent clinical providers discretion. Patient/guardians urged not to elope from the ED as their condition may be serious if not clinically assessed and managed. Initial orders include: 1- Patient sent to [facility] for further evaluation and treatment 2- labs 3- UA
[2019-03-20 18:47] LABS: Hematocrit 24.8 % (30.3-42.9); Hemoglobin 7.5 gm/dl (10.1-14.3); Mean Corpuscular HGB Conc 30 % (30-34); Mean Corpuscular Volume 66 fl (79-97); Red Blood Count 3.77 M/mm3 (3.65-5.03)
[2019-03-20 18:48] LABS: Lymphocytes % (Auto) 35.2 % (13.4-35.0); Mean Platelet Volume 8.3 fl (6-12); Platelet Count 302 K/mm3 (140-440); Red Cell Distribution Width 20.3 % (13.2-15.2)
[2019-03-20 18:49] LABS: Basophils % (Auto) 1.7 % (0.0-1.8); Eosinophils % (Auto) 5.3 % (0.0-4.3)
[2019-03-20 18:50] LABS: Eosinophils # (Auto) 0.3 K/mm3 (0.0-0.4); Lymphocytes # (Auto) 2.3 K/mm3 (1.2-5.4); Monocytes # (Auto) 0.3 K/mm3 (0.0-0.8)
[2019-03-20 18:51] LABS: Basophils # (Auto) 0.1 K/mm3 (0.0-0.1)
[2019-03-20 19:07] LABS: BUN/Creatinine Ratio 13; Blood Urea Nitrogen 9 mg/dL (7-17)
[2019-03-20 19:08] LABS: Alanine Aminotransferase 8 units/L (7-56); Albumin 4.5 g/dL (3.9-5); Calcium 8.9 mg/dL (8.4-10.2)
[2019-03-20 19:51] LABS: Hemolysis Index 0
--- NOTE | 2019-03-21 00:32 | Emergency Department Report ---
ED General Adult HPI - General Chief complaint: Medical Clearance Stated complaint: HEADACHE/DETOX Time Seen by Provider: 03/20/19 17:23 Source: patient Mode of arrival: Ambulatory Limitations: No Limitations - History of Present Illness Initial comments: 33-year-old -Ira[place] female with reported history of alcohol abuse last drink being 2 days ago presents emergency Department seeking detox currently she reports being asymptomatic has no current complaints or concerns she denies any fevers, chills, sweats, chest pain, palpitations, nausea, vomiting, abdominal pain, anxiety or any sense of impending doom. She denies any illicit drug use a nd states that her last drink was about 2 days ago. Reports Severity scale (0 -10): 0 Improves with: none Worsens with: none Associated Symptoms: denies other symptoms. denies: diaphoresis, fever/chills, headaches, loss of appetite, malaise, nausea/vomiting, rash, seizure, shortness of breath, syncope, weakness - Related Data Previous Rx's Medication Instructions Recorded Last Taken Type Sulfamethoxazole/Trimethoprim 1 each PO Q12HR #10 tablet 07/14/18 Unknown Rx [Bactrim DS TAB] Ziprasidone [Geodon] 20 mg PO BID #60 capsule 07/14/18 Unknown Rx Nystas/Diphen/Xyl Visc/Mylanta 30 ml MM TID #450 ml 08/09/18 Unknown Rx [Magic Mouthwash] Fluticasone [Flonase] 1 spray NS QDAY #1 bottle 09/14/18 Unknown Rx Docusate Sodium [Colace] 100 mg PO BID PRN #60 capsule 09/18/18 Unknown Rx Ferrous Sulfate [Feosol 325 MG tab] 325 mg PO BID #60 tablet 09/18/18 Unknown Rx metroNIDAZOLE [Flagyl TAB] 500 mg PO Q12HR #14 tab 12/04/18 Unknown Rx Ferrous Gluconate [Ferrous 324 mg PO TID #20 tablet 01/10/19 Unknown Rx Gluconate 324 MG] Iron Fum,Ps/Folic/Bcomp,C No.9 1 each PO BID 30 Days #60 capsule 02/27/19 Unknown Rx [Integra Plus Capsule] Allergies Allergy/AdvReac Type Severity Reaction Status Date / Time No Known Allergies Allergy Verified 09/14/18 08:53 ED Review of Systems ROS: Stated complaint: HEADACHE/DETOX Other details as noted in HPI Comment: All other systems reviewed and negative ED Past Medical Hx - Past Medical History Hx Hypertension: No Hx CVA: No Hx Heart Attack/AMI: No Hx Congestive Heart Failure: No Hx Diabetes: No Hx Deep Vein Thrombosis: No Hx Pulmonary Embolism: No Hx GERD: No Hx Liver Disease: No Hx Renal Disease: No Hx Sickle Cell Disease: No Hx Arthritis: No Hx Headaches / Migraines: No Hx Seizures: No Hx Kidney Stones: No Hx Psychiatric Treatment: No Hx Asthma: No Hx COPD: No Hx Tuberculosis: No Hx Dementia: No Hx HIV: No Additional medical history: iron deficiency Anemia, HEAVY MENSES WITH BLOOD TRANSFUSION - Surgical History Hx Coronary Stent: No Hx Open Heart Surgery: No Hx Pacemaker: No Hx Internal Defibrillator: No Hx Cholecystectomy: No Hx Appendectomy: No Hx Breast Surgery: No Additional Surgical History: x 2 - Social History Smoking Status: Current Every Day Smoker Substance Use Type: Alcohol - Medications Home Medications: Home Medications Medication Instructions Recorded Confirmed Last Taken Type Sulfamethoxazole/Trimethoprim 1 each PO Q12HR #10 tablet 07/14/18 Unknown Rx [Bactrim DS TAB] Ziprasidone [Geodon] 20 mg PO BID #60 capsule 07/14/18 Unknown Rx Nystas/Diphen/Xyl Visc/Mylanta 30 ml MM TID #450 ml 08/09/18 Unknown Rx [Magic Mouthwash] Fluticasone [Flonase] 1 spray NS QDAY #1 bottle 09/14/18 Unknown Rx Docusate Sodium [Colace] 100 mg PO BID PRN #60 capsule 09/18/18 Unknown Rx Ferrous Sulfate [Feosol 325 MG tab] 325 mg PO BID #60 tablet 09/18/18 Unknown Rx metroNIDAZOLE [Flagyl TAB] 500 mg PO Q12HR #14 tab 12/04/18 Unknown Rx Ferrous Gluconate [Ferrous 324 mg PO TID #20 tablet 01/10/19 Unknown Rx Gluconate 324 MG] Iron Fum,Ps/Folic/Bcomp,C No.9 1 each PO BID 30 Days #60 capsule 02/27/19 Unknown Rx [Integra Plus Capsule] ED Physical Exam - General Limitations: No Limitations General appearance: alert, in no apparent distress - Head Head exam: Present: atraumatic, normocephalic - Eye Eye exam: Present: normal appearance, PERRL, EOMI. Absent: scleral icterus, conjunctival injection, nystagmus Pupils: Present: normal accommodation - ENT ENT exam: Present: normal exam, mucous membranes moist, TM's normal bilaterally - Neck Neck exam: Present: normal inspection, full ROM. Absent: tenderness, meningismus, lymphadenopathy, thyromegaly - Respiratory Respiratory exam: Present: normal lung sounds bilaterally. Absent: respiratory distress, wheezes, rales, rhonchi, chest wall tenderness, accessory muscle use, decreased breath sounds, prolonged expiratory - Cardiovascular Cardiovascular Exam: Present: regular rate, normal rhythm. Absent: systolic murmur, diastolic murmur, rubs, gallop - GI/Abdominal GI/Abdominal exam: Present: soft, normal bowel sounds. Absent: distended, tenderness, guarding, rebound, hyperactive bowel sounds, hypoactive bowel sounds, organomegaly, mass, bruit, pulsatile mass - Extremities Exam Extremities exam: Present: normal inspection - Back Exam Back exam: Present: normal inspection - Neurological Exam Neurological exam: Present: alert, oriented X3 - Psychiatric Psychiatric exam: Present: normal affect, normal mood - Skin Skin exam: Present: warm, dry, intact, normal color. Absent: rash ED Course Vital Signs 03/20/19 03/20/19 17:00 22:00 Temperature 97.5 F L 97.9 F Pulse Rate 83 68 Respiratory 18 18 Rate Blood Pressure 152/83 Blood Pressure 135/84 [Left] O2 Sat by Pulse 100 100 Oximetry ED Medical Decision Making - Lab Data Result diagrams: 03/20/19 18:16 03/20/19 18:16 Critical care attestation.: If time is entered above; I have spent that time in minutes in the direct care of this critically ill patient, excluding procedure time. ED Disposition Clinical Impression: Desire for detoxification Disposition: DC-01 TO HOME OR SELFCARE Is pt being admited?: No Does the pt Need Aspirin: No Condition: Stable Instructions: Medical Clearance for Substance Abuse Treatment (ED) Referrals: PRIMARY CARE, [Primary Care Provider] - 3-5 Days
[2019-03-21 03:43] VITALS: BP 137/71
== END 2019-03-21 02:35 | disposition home or self-care (01) ==
LOC: ED 16:57
DX: F10.239 Alcohol dependence with withdrawal, unspecified (principal); F17.200 Nicotine dependence, unspecified, uncomplicated
CPT/HCPCS: 36415; 80053; 80320; 84703; 85025; G0480

== ENCOUNTER 2019-04-05 19:43 | Emergency (ER) | payer SELFPAY ==
--- NOTE | 2019-04-05 19:53 | Event Note ---
ED Screening Note Date of service: 04/05/19 Time: 19:49 ED Screening Note: This is a 34 y.o. F. that presents to the ER with upper abdominal pain, headache, and vomiting since last night. PMH of anemia, schizophrenia + N/V/D This initial assessment/diagnostic orders/clinical plan/treatment(s) is/are subject to change based on patients health status, clinical progression and re- assessment by fellow clinical providers in the ED. Further treatment and workup at subsequent clinical providers discretion. Patient/guardian urged not to elope from the ED as their condition may be serious if not clinically assessed and managed. Initial orders include: Labs
[2019-04-05 20:45] LABS: Bilirubin,Urine NEG (Negative); Blood,Urine NEG (Negative); Color,Urine Yellow (Yellow); Mucus,Urine FEW /HPF; Protein,Urine <15 mg/dL mg/dL (Negative); Urobilinogen,Urine < 2.0 mg/dL (<2.0)
[2019-04-05 21:17] LABS: Hemoglobin 7.4 gm/dl (10.1-14.3); Mean Corpuscular HGB Conc 30 % (30-34); Platelet Count 467 K/mm3 (140-440); Red Blood Count 3.93 M/mm3 (3.65-5.03)
[2019-04-05 21:22] LABS: Mean Corpuscular Volume 64 fl (79-97); Red Cell Distribution Width 20.5 % (13.2-15.2)
[2019-04-05 21:35] LABS: Alanine Aminotransferase 11 units/L (7-56); Albumin 4.6 g/dL (3.9-5); BUN/Creatinine Ratio 13; Blood Urea Nitrogen 8 mg/dL (7-17); Calcium 9.3 mg/dL (8.4-10.2); Hemolysis Index 8
[2019-04-05 22:05] LABS: Anisocytosis 1+; Basophils % (Manual) 0 % (0.0-1.8); Hypochromasia 2+; Total Cells Counted 100
[2019-04-05] MEDS ORDERED: ONDANSETRON 4 MG/2 ML INJ IV ONE (23:04)
[2019-04-05] MEDS ORDERED: LIDOCAINE VISCOUS 2% 15 ML ORAL LIQD PO ONE (23:04)
[2019-04-05] MEDS ORDERED: ALUM-MAG HYDROXIDE-SIMETHICONE 200-200-20MG/5ML ORAL LIQD 30 ML PO ONE (23:04)
[2019-04-05] MEDS ORDERED: FAMOTIDINE 20 MG/2 ML INJ IV ONE (23:04)
[2019-04-05] MEDS ORDERED: BUTALB/ACETAMINOPHEN/CAFFEINE TAB PO ONE (23:04)
[2019-04-05 23:21] LABS: Amphetamine Screen,Urine PRESUMPTIVE NEGATIVE; Benzodiazepines Screen,Urine PRESUMPTIVE NEGATIVE; Cannabinoid Screen,Urine PRESUMPTIVE NEGATIVE; Methadone Screen,Urine PRESUMPTIVE NEGATIVE; Opiate Screen,Urine PRESUMPTIVE NEGATIVE
[2019-04-05 23:45] LABS: Cocaine Screen,Urine PRESUMPTIVE POSITIVE
[2019-04-05] MEDS ORDERED: D5W/0.9% NACL 1,000 ML IV SCH (23:45)
--- NOTE | 2019-04-06 00:22 | Emergency Department Report ---
ED Abdominal Pain HPI - General Chief Complaint: Abdominal Pain Stated Complaint: HEADACHE, ZEB, VOMITING, ABD PAIN Time Seen by Provider: 04/05/19 19:48 Source: patient, old records reviewed Mode of arrival: Ambulatory Limitations: No Limitations - History of Present Illness Initial Comments: 34-year-old female with a past medical history iron deficiency anemia, neuralgia requiring blood transfusions, 2, alcohol abuse, and cocaine abuse pr esents to the hospital complaining of nausea and vomiting since yesterday. Patient complains of epigastric pain and vomiting specks of blood. She also is complaining of a headache to the top of her head which is intermittent. Patient has had 3-4 episodes of vomiting And one episode of loose stools. She denies melena, hematochezia, hematemesis. Last drink was last night. Patient is sleeping without acute distress in the ED. She has been here several times in the past and has required blood transfusion. Also has had psychiatric visits requesting alcohol detox and for substance abuse psychosis. She denies history of alcohol withdrawal tremors or seizures and does not feel tremulous at this time. Severity scale (0 -10): 9 - Related Data Previous Rx's Medication Instructions Recorded Last Taken Type Sulfamethoxazole/Trimethoprim 1 each PO Q12HR #10 tablet 07/14/18 Unknown Rx [Bactrim DS TAB] Ziprasidone [Geodon] 20 mg PO BID #60 capsule 07/14/18 Unknown Rx Nystas/Diphen/Xyl Visc/Mylanta 30 ml MM TID #450 ml 08/09/18 Unknown Rx [Magic Mouthwash] Fluticasone [Flonase] 1 spray NS QDAY #1 bottle 09/14/18 Unknown Rx Docusate Sodium [Colace] 100 mg PO BID PRN #60 capsule 09/18/18 Unknown Rx metroNIDAZOLE [Flagyl TAB] 500 mg PO Q12HR #14 tab 12/04/18 Unknown Rx Ferrous Gluconate [Ferrous 324 mg PO TID #20 tablet 01/10/19 Unknown Rx Gluconate 324 MG] Iron Fum,Ps/Folic/Bcomp,C No.9 1 each PO BID 30 Days #60 capsule 02/27/19 Unknown Rx [Integra Plus Capsule] Butalb/Acetamin/Caff 50-325-40 1 tab PO Q6HR PRN #14 tab 04/06/19 Unknown Rx [Fioricet 50-325-40] Famotidine [Pepcid] 20 mg PO BID #20 tablet 04/06/19 Unknown Rx Ferrous Sulfate [Feosol 325 MG tab] 325 mg PO BID #60 tablet 04/06/19 Unknown Rx Mag Hydrox/Aluminum Hyd/Simeth 20 ml PO QID PRN #1 bottle 04/06/19 Unknown Rx [Maalox Advanced Suspension] Ondansetron [Zofran Odt] 4 mg PO Q8HR PRN #20 tab.rapdis 04/06/19 Unknown Rx Allergies Allergy/AdvReac Type Severity Reaction Status Date / Time No Known Allergies Allergy Verified 09/14/18 08:53 ED Review of Systems ROS: Stated complaint: HEADACHE, ZEB, VOMITING, ABD PAIN Other details as noted in HPI Comment: All other systems reviewed and negative ED Past Medical Hx - Past Medical History Previous Medical History?: No Hx Hypertension: No Hx CVA: No Hx Heart Attack/AMI: No Hx Congestive Heart Failure: No Hx Diabetes: No Hx Deep Vein Thrombosis: No Hx Pulmonary Embolism: No Hx GERD: No Hx Liver Disease: No Hx Renal Disease: No Hx Sickle Cell Disease: No Hx Arthritis: No Hx Headaches / Migraines: No Hx Seizures: No Hx Kidney Stones: No Hx Psychiatric Treatment: No Hx Asthma: No Hx COPD: No Hx Tuberculosis: No Hx Dementia: No Hx HIV: No Additional medical history: iron deficiency Anemia, HEAVY MENSES WITH BLOOD TRANSFUSION - Surgical History Past Surgical History?: Yes Hx Coronary Stent: No Hx Open Heart Surgery: No Hx Pacemaker: No Hx Internal Defibrillator: No Hx Cholecystectomy: No Hx Appendectomy: No Hx Breast Surgery: No Additional Surgical History: x 2 - Social History Smoking Status: Current Every Day Smoker Substance Use Type: Alcohol - Medications Home Medications: Home Medications Medication Instructions Recorded Confirmed Last Taken Type Sulfamethoxazole/Trimethoprim 1 each PO Q12HR #10 tablet 07/14/18 Unknown Rx [Bactrim DS TAB] Ziprasidone [Geodon] 20 mg PO BID #60 capsule 07/14/18 Unknown Rx Nystas/Diphen/Xyl Visc/Mylanta 30 ml MM TID #450 ml 08/09/18 Unknown Rx [Magic Mouthwash] Fluticasone [Flonase] 1 spray NS QDAY #1 bottle 09/14/18 Unknown Rx Docusate Sodium [Colace] 100 mg PO BID PRN #60 capsule 09/18/18 Unknown Rx metroNIDAZOLE [Flagyl TAB] 500 mg PO Q12HR #14 tab 12/04/18 Unknown Rx Ferrous Gluconate [Ferrous 324 mg PO TID #20 tablet 01/10/19 Unknown Rx Gluconate 324 MG] Iron Fum,Ps/Folic/Bcomp,C No.9 1 each PO BID 30 Days #60 capsule 02/27/19 Unknown Rx [Integra Plus Capsule] Butalb/Acetamin/Caff 50-325-40 1 tab PO Q6HR PRN #14 tab 04/06/19 Unknown Rx [Fioricet 50-325-40] Famotidine [Pepcid] 20 mg PO BID #20 tablet 04/06/19 Unknown Rx Ferrous Sulfate [Feosol 325 MG tab] 325 mg PO BID #60 tablet 04/06/19 Unknown Rx Mag Hydrox/Aluminum Hyd/Simeth 20 ml PO QID PRN #1 bottle 04/06/19 Unknown Rx [Maalox Advanced Suspension] Ondansetron [Zofran Odt] 4 mg PO Q8HR PRN #20 tab.rapdis 04/06/19 Unknown Rx ED Physical Exam - General Limitations: No Limitations - Other Other exam information: General: No acute distress Head: Atraumatic Eyes: normal appearance ENT: Moist mucous membranes Neck: Normal appearance, no midline tenderness Chest: Clear to auscultation bilaterally CV: Regular rate and rhythm Abdomen: Soft, normal bowel sounds, epigastric tenderness, nondistended, no rebound or guarding Rectal: Guaiac negative brown stool and no melena Back: Normal inspection Extremity: Normal inspection infection, full range of motion Neuro: Alert O x 3, no facial asymmetry, speech clear, no gross motor sensory deficit Psych: Appropriate behavior Skin: No rash ED Course Vital Signs 04/05/19 04/05/19 19:48 23:43 Temperature 98.1 F Pulse Rate 85 Respiratory 18 18 Rate Blood Pressure 143/82 O2 Sat by Pulse 100 Oximetry ED Medical Decision Making - Lab Data Result diagrams: 04/05/19 20:08 04/05/19 20:08 - Medical Decision Making Patient has anemia which is stable compared to recent visit on 03/20. US + ketosis and increased specific gravity suggesting dehydration. UDS positive for cocaine. No other acute lab abnormality noted. Patient is treated with D5 Ns, Zofran, Pepcid, MiraLAX, this lidocaine, and Fioricet. No vomiting noted in the ED and patient tolerating by mouth intake. No signs of acute GI bleed. Plan to d/c pt home with meds and pmd/gi f/u. Critical Care Time: No Critical care attestation.: If time is entered above; I have spent that time in minutes in the direct care of this critically ill patient, excluding procedure time. ED Disposition Clinical Impression: Iron deficiency anemia, Cocaine abuse, Dehydration, Alcohol abuse, Gastritis, Headache Disposition: TO HOME OR SELFCARE Is pt being admited?: No Does the pt Need Aspirin: No Condition: Stable Instructions: Gastritis (ED), Cocaine Abuse (ED), Abuse of Alcohol (ED), Acute Headache (ED) Additional Instructions: Take the medication as prescribed. Follow-up with your doctor or doctor/clinic provided. Return if symptoms worsen as indicated by your discharge instructions. Prescriptions: Ferrous Sulfate [Feosol 325 MG tab] 325 mg PO BID #60 tablet Butalb/Acetamin/Caff 50-325-40 [Fioricet 50-325-40] 1 tab PO Q6HR PRN #14 tab PRN Reason: Headache Mag Hydrox/Aluminum Hyd/Simeth [Maalox Advanced Suspension] 20 ml PO QID PRN #1 bottle PRN Reason: Indigestion Famotidine [Pepcid] 20 mg PO BID #20 tablet Ondansetron [Zofran Odt] 4 mg PO Q8HR PRN #20 tab.rapdis PRN Reason: Nausea And Vomiting Referrals: [facility] [Provider Group] - 3-5 Days (GI doctor ) [facility] [Provider Group] - 3-5 Days (primary care doctor) [facility] [Outside] - 7-10 days Time of Disposition: 01:30
[2019-04-06 01:43] VITALS: BP 108/56
== END 2019-04-06 01:43 | disposition home or self-care (01) ==
LOC: ED 19:43
DX: K29.70 Gastritis, unspecified, without bleeding (principal); R51 Headache; D64.9 Anemia, unspecified; D50.9 Iron deficiency anemia, unspecified; F17.200 Nicotine dependence, unspecified, uncomplicated
CPT/HCPCS: 36415; 80053; 80307; 81001; 82271; 83690; 84703; 85007; 85025; 96361; 96374; 96375; 99283; J2405; J7042

== ENCOUNTER 2019-04-13 22:21 | Emergency (ER) | payer SELFPAY ==
[2019-04-13 22:32] VITALS: BP 131/63
[2019-04-13] MEDS ORDERED: METOCLOPRAMIDE 10 MG TAB PO ONE (23:40)
[2019-04-13] MEDS ORDERED: diphenhydrAMINE 25 MG CAP PO ONE (23:40)
[2019-04-13] MEDS ORDERED: ACETAMINOPHEN 500 MG TAB PO ONE (23:40)
--- NOTE | 2019-04-14 00:01 | Emergency Department Report ---
ED Headache HPI - General Chief Complaint: Headache Stated Complaint: HEADACHE Time Seen by Provider: 04/13/19 23:40 - History of Present Illness Initial Comments: Ms Jones is a 34 y/o aaf who presents for headheahe occipital 4/10 aching , there is no radiation , no photophobia , no n/v , this is typical headache for this patient. Pt was seen 5 days ago for same given rx for fioricet state she cannot afford it. States this is the same type of headache that occurs 1-2 per week. pt remains a/o x 3, ambulatory with steady gait, pt is tolerating po intake without n/v, pt appears well and nontoxic. it eating dinner meal at this time with nad. Timing/Duration: 24 hours, other (chronic headache ) Quality: moderate, constant Head Injury Location: frontal Recent Head Trauma: no recent headache/trauma, frequent headaches, chronic headaches Associated Symptoms: denies: facial pain, fever/chills, flushing, nausea/vomiting, nasal congestion, nasal drainage, numbness in legs/feet, rash, sinus infection, stiff neck, vision changes, weakness Allergies/Adverse Reactions: Allergies No Known Allergies Allergy (Verified 09/14/18 08:53) Home Medications: Ambulatory Orders Sulfamethoxazole/Trimethoprim [Bactrim DS TAB] 1 each PO Q12HR #10 tablet 07/14/18 Ziprasidone [Geodon] 20 mg PO BID #60 capsule 07/14/18 Nystas/Diphen/Xyl Visc/Mylanta [Magic Mouthwash] 30 ml MM TID #450 ml 08/09/18 Fluticasone [Flonase] 1 spray NS QDAY #1 bottle 09/14/18 Docusate Sodium [Colace] 100 mg PO BID PRN #60 capsule 09/18/18 metroNIDAZOLE [Flagyl TAB] 500 mg PO Q12HR #14 tab 12/04/18 Ferrous Gluconate [Ferrous Gluconate 324 MG] 324 mg PO TID #20 tablet 01/10/19 Iron Fum,Ps/Folic/Bcomp,C No.9 [Integra Plus Capsule] 1 each PO BID 30 Days #60 capsule 02/27/19 Butalb/Acetamin/Caff 50-325-40 [Fioricet 50-325-40] 1 tab PO Q6HR PRN #14 tab 04/06/19 Famotidine [Pepcid] 20 mg PO BID #20 tablet 04/06/19 Ferrous Sulfate [Feosol 325 MG tab] 325 mg PO BID #60 tablet 04/06/19 Mag Hydrox/Aluminum Hyd/Simeth [Maalox Advanced Suspension] 20 ml PO QID PRN #1 bottle 04/06/19 Ondansetron [Zofran Odt] 4 mg PO Q8HR PRN #20 tab.rapdis 04/06/19 Acetaminophen [Non-Aspirin Extra Strength] 1,000 mg PO Q6H PRN #30 tablet 04/14/19 Metoclopramide [Reglan] 10 mg PO Q8H PRN #30 tab 04/14/19 diphenhydrAMINE [Benadryl CAP] 25 mg PO Q8HR PRN #30 capsule 04/14/19 ED Review of Systems ROS: Stated complaint: HEADACHE Other details as noted in HPI Constitutional: denies: chills, fever Eyes: denies: eye pain, eye discharge, vision change ENT: denies: ear pain, throat pain Respiratory: denies: cough, shortness of breath, wheezing Cardiovascular: denies: chest pain, palpitations Endocrine: no symptoms reported Gastrointestinal: denies: abdominal pain, nausea, vomiting, diarrhea Genitourinary: denies: urgency, dysuria, discharge Musculoskeletal: denies: back pain, joint swelling, arthralgia Skin: denies: rash, lesions Neurological: headache. denies: weakness, numbness, paresthesias, confusion, vertigo Psychiatric: denies: anxiety, depression Hematological/Lymphatic: denies: easy bleeding, easy bruising ED Past Medical Hx - Past Medical History Previous Medical History?: Yes Hx Hypertension: No Hx CVA: No Hx Heart Attack/AMI: No Hx Congestive Heart Failure: No Hx Diabetes: No Hx Deep Vein Thrombosis: No Hx Pulmonary Embolism: No Hx GERD: No Hx Liver Disease: No Hx Renal Disease: No Hx Sickle Cell Disease: No Hx Arthritis: No Hx Headaches / Migraines: No Hx Seizures: No Hx Kidney Stones: No Hx Psychiatric Treatment: No Hx Asthma: No Hx COPD: No Hx Tuberculosis: No Hx Dementia: No Hx HIV: No Additional medical history: iron deficiency Anemia, HEAVY MENSES WITH BLOOD TRANSFUSION - Surgical History Past Surgical History?: Yes Hx Coronary Stent: No Hx Open Heart Surgery: No Hx Pacemaker: No Hx Internal Defibrillator: No Hx Cholecystectomy: No Hx Appendectomy: No Hx Breast Surgery: No Additional Surgical History: x 2 - Social History Smoking Status: Current Every Day Smoker Substance Use Type: None - Medications Home Medications: Home Medications Medication Instructions Recorded Confirmed Last Taken Type Sulfamethoxazole/Trimethoprim 1 each PO Q12HR #10 tablet 07/14/18 Unknown Rx [Bactrim DS TAB] Ziprasidone [Geodon] 20 mg PO BID #60 capsule 07/14/18 Unknown Rx Nystas/Diphen/Xyl Visc/Mylanta 30 ml MM TID #450 ml 08/09/18 Unknown Rx [Magic Mouthwash] Fluticasone [Flonase] 1 spray NS QDAY #1 bottle 09/14/18 Unknown Rx Docusate Sodium [Colace] 100 mg PO BID PRN #60 capsule 09/18/18 Unknown Rx metroNIDAZOLE [Flagyl TAB] 500 mg PO Q12HR #14 tab 12/04/18 Unknown Rx Ferrous Gluconate [Ferrous 324 mg PO TID #20 tablet 01/10/19 Unknown Rx Gluconate 324 MG] Iron Fum,Ps/Folic/Bcomp,C No.9 1 each PO BID 30 Days #60 capsule 02/27/19 Unknown Rx [Integra Plus Capsule] Butalb/Acetamin/Caff 50-325-40 1 tab PO Q6HR PRN #14 tab 04/06/19 Unknown Rx [Fioricet 50-325-40] Famotidine [Pepcid] 20 mg PO BID #20 tablet 04/06/19 Unknown Rx Ferrous Sulfate [Feosol 325 MG tab] 325 mg PO BID #60 tablet 04/06/19 Unknown Rx Mag Hydrox/Aluminum Hyd/Simeth 20 ml PO QID PRN #1 bottle 04/06/19 Unknown Rx [Maalox Advanced Suspension] Ondansetron [Zofran Odt] 4 mg PO Q8HR PRN #20 tab.rapdis 04/06/19 Unknown Rx Acetaminophen [Non-Aspirin Extra 1,000 mg PO Q6H PRN #30 tablet 04/14/19 Unknown Rx Strength] Metoclopramide [Reglan] 10 mg PO Q8H PRN #30 tab 04/14/19 Unknown Rx diphenhydrAMINE [Benadryl CAP] 25 mg PO Q8HR PRN #30 capsule 04/14/19 Unknown Rx ED Physical Exam - General Limitations: No Limitations General appearance: alert, in no apparent distress - Head Head exam: Present: atraumatic, normocephalic - Eye Eye exam: Present: normal appearance, PERRL, EOMI Pupils: Present: normal accommodation - ENT ENT exam: Present: normal orophraynx, mucous membranes moist, TM's normal bilaterally, normal external ear exam - Neck Neck exam: Present: normal inspection, full ROM. Absent: tenderness, meningismus, lymphadenopathy, thyromegaly - Expanded Neck Exam Expanded Neck exam: Absent: tenderness, midline deformity, anterior neck swelling, thyroid mass, carotid bruit, tracheal deviation - Respiratory Respiratory exam: Present: normal lung sounds bilaterally. Absent: respiratory distress, wheezes, stridor, chest wall tenderness - Cardiovascular Cardiovascular Exam: Present: regular rate, normal rhythm, normal heart sounds. Absent: systolic murmur, diastolic murmur, rubs, gallop - GI/Abdominal GI/Abdominal exam: Present: soft, normal bowel sounds. Absent: distended, tenderness, guarding, rebound, rigid, bruit, hernia - Rectal Rectal exam: Present: deferred - Extremities Exam Extremities exam: Present: normal inspection, full ROM, normal capillary refill. Absent: tenderness - Back Exam Back exam: Present: normal inspection, full ROM. Absent: tenderness, CVA tenderness (R), CVA tenderness (L), vertebral tenderness, rash noted - Neurological Exam Neurological exam: Present: alert, oriented X3, CN II-XII intact, normal gait, reflexes normal. Absent: motor sensory deficit - Expanded Neurological Exam Expanded Patient oriented to: Present: person, place, time Speech: Present: fluid speech Cranial nerves: EOM's Intact: Normal, Gag Reflex: Normal, Tongue Deviation: Normal, Nystagmus: Normal, Facial Sensation: Normal Motor strength exam: RUE: 5, LUE: 5, RLE: 5, LLE: 5 Best Eye Response (Ayala): (4) open spontaneously Best Motor Response (Ayala): (6) obeys commands Best Verbal Response (Ayala): (5) oriented Ayala Total: 15 - Psychiatric Psychiatric exam: Present: normal affect - Skin Skin exam: Present: warm, dry, intact, normal color. Absent: rash ED Course Vital Signs 04/13/19 04/13/19 22:25 22:40 Temperature 97.4 F L 97.4 F L Pulse Rate 82 80 Respiratory 18 18 Rate Blood Pressure 131/63 131/63 O2 Sat by Pulse 92 95 Oximetry ED Medical Decision Making - Medical Decision Making this is an acute on chronic headache, plan pt advised to fill foioricet po, given tylenol, benadryl, reglan in ed , headache is relieved , pt will follow up with pcp in 2-3 days given referral to [facility] , pt dc'd to self in stable condition at this time. Critical care attestation.: If time is entered above; I have spent that time in minutes in the direct care of this critically ill patient, excluding procedure time. ED Disposition Clinical Impression: Chronic headache Qualifiers: Headache type: unspecified Intractability: not intractable Qualified Code(s): R51 - Headache Disposition: DC-01 TO HOME OR SELFCARE Is pt being admited?: No Does the pt Need Aspirin: No Condition: Stable Instructions: Cluster Headache (ED), Acute Headache (ED) Prescriptions: diphenhydrAMINE [Benadryl CAP] 25 mg PO Q8HR PRN #30 capsule PRN Reason: Headache Acetaminophen [Non-Aspirin Extra Strength] 1,000 mg PO Q6H PRN #30 tablet PRN Reason: Headache Metoclopramide [Reglan] 10 mg PO Q8H PRN #30 tab PRN Reason: Headache Referrals: [facility] [Outside] - 3-5 Days CLAYTON WALLACE MD [Referring] - 3-5 Days Forms: Work/School Release Form(ED) Time of Disposition: 00:13
== END 2019-04-14 01:20 | disposition home or self-care (01) ==
LOC: ED 22:21
DX: R51 Headache (principal); F17.200 Nicotine dependence, unspecified, uncomplicated; Z79.899 Other long term (current) drug therapy

== ENCOUNTER 2019-05-31 22:15 | Emergency (ER) | payer SELFPAY ==
[2019-06-01] MEDS ORDERED: ACETAMINOPHEN 500 MG TAB PO ONE (04:04)
[2019-06-01] MEDS ORDERED: predniSONE 20 MG TAB PO ONE (04:04)
--- NOTE | 2019-06-01 04:50 | XRay Report ---
CHEST 1 VIEW 4:31 AM INDICATION / CLINICAL INFORMATION: Cough and chest pain. COMPARISON: None available. FINDINGS: SUPPORT DEVICES: None. HEART / MEDIASTINUM: The heart size and pulmonary vasculature are normal. LUNGS / PLEURA: No significant pulmonary or pleural abnormality. No pneumothorax. ADDITIONAL FINDINGS: No significant additional findings. IMPRESSION: No acute findings. Signer Name: Abhay Neal MD Signed: 06/01/2019 4:45 AM Workstation Name: [id number]
--- NOTE | 2019-06-01 05:20 | Emergency Department Report ---
- General Chief Complaint: Upper Respiratory Infection Stated Complaint: NASAL CONGESTION Source: patient Mode of arrival: Ambulatory Limitations: No Limitations - History of Present Illness Initial Comments: Patient is a 34-year-old female who presented to the ED with persistent nasal and sinus congestion, dry cough, pleuritic chest pain, shortness of breath and chest tightness for 2 days. Patient states that the pain in the chest is worse with inhalation or palpation. Patient denies dizziness, fever, chills, nausea, vomiting, diarrhea, abdominal pain, palpitations, syncope, headache or changes in vision. MD Complaint: cough, rhinorrhea, nasal congestion, sinus pain, other (Pleuritic chest pain) -: Sudden, days(s) (2) Severity: moderate Severity scale (0 -10): 6 Quality: sharp, aching Consistency: constant Improves With: nothing Worsens With: nothing Associated Symptoms: denies other symptoms, headache, rhinorrhea, nasal congestion, cough, chest pain, shortness of breath. denies: fever, chills, abdominal pain, nausea, vomiting, diarrhea, dysuria, confusion, right sweats Treatments Prior to Arrival: none - Related Data Previous Rx's Medication Instructions Recorded Last Taken Type Sulfamethoxazole/Trimethoprim 1 each PO Q12HR #10 tablet 07/14/18 Unknown Rx [Bactrim DS TAB] Ziprasidone [Geodon] 20 mg PO BID #60 capsule 07/14/18 Unknown Rx Nystas/Diphen/Xyl Visc/Mylanta 30 ml MM TID #450 ml 08/09/18 Unknown Rx [Magic Mouthwash] Fluticasone [Flonase] 1 spray NS QDAY #1 bottle 09/14/18 Unknown Rx Docusate Sodium [Colace] 100 mg PO BID PRN #60 capsule 09/18/18 Unknown Rx metroNIDAZOLE [Flagyl TAB] 500 mg PO Q12HR #14 tab 12/04/18 Unknown Rx Ferrous Gluconate [Ferrous 324 mg PO TID #20 tablet 01/10/19 Unknown Rx Gluconate 324 MG] Iron Fum,Ps/Folic/Bcomp,C No.9 1 each PO BID 30 Days #60 capsule 02/27/19 Unknown Rx [Integra Plus Capsule] Butalb/Acetamin/Caff 50-325-40 1 tab PO Q6HR PRN #14 tab 04/06/19 Unknown Rx [Fioricet 50-325-40] Famotidine [Pepcid] 20 mg PO BID #20 tablet 04/06/19 Unknown Rx Ferrous Sulfate [Feosol 325 MG tab] 325 mg PO BID #60 tablet 04/06/19 Unknown Rx Mag Hydrox/Aluminum Hyd/Simeth 20 ml PO QID PRN #1 bottle 04/06/19 Unknown Rx [Maalox Advanced Suspension] Ondansetron [Zofran Odt] 4 mg PO Q8HR PRN #20 tab.rapdis 04/06/19 Unknown Rx Acetaminophen [Non-Aspirin Extra 1,000 mg PO Q6H PRN #30 tablet 04/14/19 Unknown Rx Strength] Metoclopramide [Reglan] 10 mg PO Q8H PRN #30 tab 04/14/19 Unknown Rx diphenhydrAMINE [Benadryl CAP] 25 mg PO Q8HR PRN #30 capsule 04/14/19 Unknown Rx Albuterol INH(or & Nicu Only) 1 - 2 puff IH Q6H PRN #1 inh 06/01/19 Unknown Rx [ProAir HFA Inhaler] Azithromycin [Zithromax Z-AUSTEN] 250 mg PO DAILY #6 tablet 06/01/19 Unknown Rx Benzonatate [Tessalon Perles] 100 mg PO Q8HR #30 capsule 06/01/19 Unknown Rx Ibuprofen [Motrin] 600 mg PO Q8H PRN #20 tablet 06/01/19 Unknown Rx methylPREDNISolone [Medrol 4MG 4 mg PO DAILY #21 tab.ds.pk 06/01/19 Unknown Rx DOSEPAK (21 tabs)] Allergies Allergy/AdvReac Type Severity Reaction Status Date / Time No Known Allergies Allergy Verified 09/14/18 08:53 ED Review of Systems ROS: Stated complaint: NASAL CONGESTION Other details as noted in HPI Constitutional: denies: chills, fever Eyes: denies: eye pain, eye discharge, vision change ENT: congestion. denies: ear pain, throat pain Respiratory: cough. denies: shortness of breath, wheezing Cardiovascular: denies: chest pain, palpitations Endocrine: no symptoms reported Gastrointestinal: denies: abdominal pain, nausea, vomiting, diarrhea Genitourinary: denies: urgency, dysuria, discharge Musculoskeletal: denies: back pain, joint swelling, arthralgia Skin: denies: rash, lesions Neurological: denies: headache, weakness, paresthesias Psychiatric: denies: anxiety, depression Hematological/Lymphatic: denies: easy bleeding, easy bruising ED Past Medical Hx - Past Medical History Previous Medical History?: Yes Hx Hypertension: No Hx CVA: No Hx Heart Attack/AMI: No Hx Congestive Heart Failure: No Hx Diabetes: No Hx Deep Vein Thrombosis: No Hx Pulmonary Embolism: No Hx GERD: No Hx Liver Disease: No Hx Renal Disease: No Hx Sickle Cell Disease: No Hx Arthritis: No Hx Headaches / Migraines: No Hx Seizures: No Hx Kidney Stones: No Hx Psychiatric Treatment: No Hx Asthma: No Hx COPD: No Hx Tuberculosis: No Hx Dementia: No Hx HIV: No Additional medical history: iron deficiency Anemia, HEAVY MENSES WITH BLOOD TRANSFUSION, Frequent Nose bleeds - Surgical History Past Surgical History?: Yes Hx Coronary Stent: No Hx Open Heart Surgery: No Hx Pacemaker: No Hx Internal Defibrillator: No Hx Cholecystectomy: No Hx Appendectomy: No Hx Breast Surgery: No Additional Surgical History: x 2 - Social History Smoking Status: Current Every Day Smoker Substance Use Type: None - Medications Home Medications: Home Medications Medication Instructions Recorded Confirmed Last Taken Type Sulfamethoxazole/Trimethoprim 1 each PO Q12HR #10 tablet 07/14/18 Unknown Rx [Bactrim DS TAB] Ziprasidone [Geodon] 20 mg PO BID #60 capsule 07/14/18 Unknown Rx Nystas/Diphen/Xyl Visc/Mylanta 30 ml MM TID #450 ml 08/09/18 Unknown Rx [Magic Mouthwash] Fluticasone [Flonase] 1 spray NS QDAY #1 bottle 09/14/18 Unknown Rx Docusate Sodium [Colace] 100 mg PO BID PRN #60 capsule 09/18/18 Unknown Rx metroNIDAZOLE [Flagyl TAB] 500 mg PO Q12HR #14 tab 12/04/18 Unknown Rx Ferrous Gluconate [Ferrous 324 mg PO TID #20 tablet 01/10/19 Unknown Rx Gluconate 324 MG] Iron Fum,Ps/Folic/Bcomp,C No.9 1 each PO BID 30 Days #60 capsule 02/27/19 Unknown Rx [Integra Plus Capsule] Butalb/Acetamin/Caff 50-325-40 1 tab PO Q6HR PRN #14 tab 04/06/19 Unknown Rx [Fioricet 50-325-40] Famotidine [Pepcid] 20 mg PO BID #20 tablet 04/06/19 Unknown Rx Ferrous Sulfate [Feosol 325 MG tab] 325 mg PO BID #60 tablet 04/06/19 Unknown Rx Mag Hydrox/Aluminum Hyd/Simeth 20 ml PO QID PRN #1 bottle 04/06/19 Unknown Rx [Maalox Advanced Suspension] Ondansetron [Zofran Odt] 4 mg PO Q8HR PRN #20 tab.rapdis 04/06/19 Unknown Rx Acetaminophen [Non-Aspirin Extra 1,000 mg PO Q6H PRN #30 tablet 04/14/19 Unknown Rx Strength] Metoclopramide [Reglan] 10 mg PO Q8H PRN #30 tab 04/14/19 Unknown Rx diphenhydrAMINE [Benadryl CAP] 25 mg PO Q8HR PRN #30 capsule 04/14/19 Unknown Rx Albuterol INH(or & Nicu Only) 1 - 2 puff IH Q6H PRN #1 inh 06/01/19 Unknown Rx [ProAir HFA Inhaler] Azithromycin [Zithromax Z-AUSTEN] 250 mg PO DAILY #6 tablet 06/01/19 Unknown Rx Benzonatate [Tessalon Perles] 100 mg PO Q8HR #30 capsule 06/01/19 Unknown Rx Ibuprofen [Motrin] 600 mg PO Q8H PRN #20 tablet 06/01/19 Unknown Rx methylPREDNISolone [Medrol 4MG 4 mg PO DAILY #21 tab.ds.pk 06/01/19 Unknown Rx DOSEPAK (21 tabs)] ED Physical Exam - General Limitations: No Limitations General appearance: alert, in no apparent distress - Head Head exam: Present: atraumatic, normocephalic, normal inspection - Eye Eye exam: Present: normal appearance, PERRL, EOMI. Absent: scleral icterus, conjunctival injection, periorbital swelling, periorbital tenderness Pupils: Present: normal accommodation - ENT ENT exam: Present: normal exam, normal orophraynx, mucous membranes moist, TM's normal bilaterally, normal external ear exam (grossly congested nasal passages) - Neck Neck exam: Present: normal inspection, full ROM - Respiratory Respiratory exam: Present: normal lung sounds bilaterally, chest wall tenderness (diffuse). Absent: respiratory distress, wheezes, rales, rhonchi, accessory muscle use, decreased breath sounds, prolonged expiratory - Cardiovascular Cardiovascular Exam: Present: regular rate, normal rhythm, normal heart sounds. Absent: systolic murmur, diastolic murmur, rubs, gallop - GI/Abdominal GI/Abdominal exam: Present: soft, normal bowel sounds. Absent: distended, tenderness, guarding, rebound - Extremities Exam Extremities exam: Present: normal inspection, full ROM, normal capillary refill - Back Exam Back exam: Present: normal inspection, full ROM. Absent: tenderness, CVA tenderness (L), muscle spasm, paraspinal tenderness - Neurological Exam Neurological exam: Present: alert, oriented X3, CN II-XII intact, normal gait, reflexes normal - Psychiatric Psychiatric exam: Present: normal affect, normal mood - Skin Skin exam: Present: warm, dry, intact, normal color. Absent: rash ED Course Vital Signs 06/01/19 06/01/19 00:51 04:11 Temperature 97.6 F Pulse Rate 67 Respiratory 18 20 Rate Blood Pressure 132/102 O2 Sat by Pulse 100 Oximetry ED Medical Decision Making - Radiology Data Radiology results: report reviewed, image reviewed Chest x-ray shows no acute cardiopulmonary abnormalities or pneumonitis - Medical Decision Making This is a 34-year-old female who presented to the ED with persistent nasal and sinus congestion, dry cough, pleuritic chest pain, shortness of breath and chest tightness for 2 days. In the ED, patient is alert and oriented 3 and is not in any distress. Chest x-ray shows no acute cardiopulmonary abnormalities or pneumonitis. Patient was treated in the ED with oral steroids and pain medication. Patient was discharged home on medications and advised to follow-up with her primary care physician in 5-7 days for reevaluation or return to the ED immediately if symptoms get worse. - Differential Diagnosis bronchitis; URI; Pharyngitis; pneumonia Critical care attestation.: If time is entered above; I have spent that time in minutes in the direct care of this critically ill patient, excluding procedure time. ED Disposition Clinical Impression: Acute upper respiratory infection, Pleuritic chest pain Acute bronchitis Qualifiers: Bronchitis organism: unspecified organism Qualified Code(s): J20.9 - Acute bronchitis, unspecified Disposition: - TO HOME OR SELFCARE Is pt being admited?: No Does the pt Need Aspirin: No Condition: Stable Instructions: Acute Bronchitis (ED), Chest Pain (ED), Upper Respiratory Infection (ED) Additional Instructions: Take medications with food, drink plenty of fluids and follow up with your primary care physician in 5-7 days for reevaluation. Return to the ED immediately if symptoms get worse. Prescriptions: methylPREDNISolone [Medrol 4MG DOSEPAK (21 tabs)] 4 mg PO DAILY #21 tab.ds.pk Ibuprofen [Motrin] 600 mg PO Q8H PRN #20 tablet PRN Reason: Pain Albuterol INH(or & Nicu Only) [ProAir HFA Inhaler] 1 - 2 puff IH Q6H PRN #1 inh PRN Reason: Dyspnea Benzonatate [Tessalon Perles] 100 mg PO Q8HR #30 capsule Azithromycin [Zithromax Z-AUSTEN] 250 mg PO DAILY #6 tablet Referrals: [facility] [Outside] - 7-10 days Time of Disposition: 05:22 Print Language: WELSH
[2019-06-01 05:48] VITALS: BP 128/89
== END 2019-06-01 07:26 | disposition home or self-care (01) ==
LOC: ED 22:15
DX: J20.9 Acute bronchitis, unspecified (principal); J06.9 Acute upper respiratory infection, unspecified; R07.89 Other chest pain; F17.200 Nicotine dependence, unspecified, uncomplicated; Z86.2 Personal history of diseases of the blood and blood-forming organs and certain disorders involving the immune mechanism; Z79.899 Other long term (current) drug therapy
CPT/HCPCS: 71046; 99283; J7512

== ENCOUNTER 2019-06-29 04:52 | Inpatient (IN) | payer OTHER ==
[2019-06-29 05:49] LABS: Bilirubin,Urine NEG (Negative); Blood,Urine LG (Negative); Color,Urine Yellow (Yellow); RBC,Urine > 182.0 /HPF (0.0-6.0); Urobilinogen,Urine < 2.0 mg/dL (<2.0); WBC,Urine > 182.0 /HPF (0.0-6.0)
[2019-06-29 05:52] LABS: Amphetamine Screen,Urine PRESUMPTIVE NEGATIVE; Benzodiazepines Screen,Urine PRESUMPTIVE NEGATIVE; Cannabinoid Screen,Urine PRESUMPTIVE NEGATIVE; Methadone Screen,Urine PRESUMPTIVE NEGATIVE; Opiate Screen,Urine PRESUMPTIVE NEGATIVE
[2019-06-29 06:12] LABS: Cocaine Screen,Urine PRESUMPTIVE POSITIVE
[2019-06-29 06:16] LABS: Basophils # (Auto) 0.2 K/mm3 (0.0-0.1); Basophils % (Auto) 1.3 % (0.0-1.8); Eosinophils # (Auto) 0.6 K/mm3 (0.0-0.4); Eosinophils % (Auto) 4.3 % (0.0-4.3); Lymphocytes # (Auto) 2.4 K/mm3 (1.2-5.4); Mean Corpuscular HGB Conc 28 % (30-34); Monocytes # (Auto) 0.7 K/mm3 (0.0-0.8); Monocytes % (Auto) 5.5 % (0.0-7.3); Platelet Count 358 K/mm3 (140-440); Red Blood Count 3.32 M/mm3 (3.65-5.03)
[2019-06-29 06:18] LABS: Red Cell Distribution Width 23.4 % (13.2-15.2)
[2019-06-29 06:19] LABS: Hematocrit 20.3 % (30.3-42.9); Mean Corpuscular Volume 61 fl (79-97)
[2019-06-29 06:21] LABS: Hemoglobin 5.8 gm/dl (10.1-14.3)
[2019-06-29 06:39] LABS: BUN/Creatinine Ratio 17; Blood Urea Nitrogen 10 mg/dL (7-17); Calcium 9.1 mg/dL (8.4-10.2); Hemolysis Index 0
[2019-06-29] MEDS ORDERED: SODIUM CHLORIDE 0.9% 500 ML 500 ML IV ONE ×2 (14:29→21:15)
--- NOTE | 2019-06-29 14:29 | Emergency Department Report ---
ED General Adult HPI - General Chief complaint: Alcohol Stated complaint: DETOX Time Seen by Provider: 06/29/19 14:11 Source: patient Mode of arrival: Ambulatory Limitations: No Limitations - History of Present Illness Initial comments: 34-year-old female with history of alcohol abuse, iron deficiency anemia, presents to ED requesting initially requesting alcohol detox. Patient states she felt as if she drank too much alcohol yesterday and did not feel well. Labs were ordered at triage. Pt has hemoglobin of 5.8. She does report some dyspnea on exertion and generalized weakness. Pt states she is currently on her menstrual period. Reports heavy menstrual periods. Has required blood transfusions in the past. Pt is unsure if she has fibroids. -: Last night Location: abdomen Associated Symptoms: shortness of breath, weakness. denies: chest pain, nausea/vomiting Treatments Prior to Arrival: none - Related Data Previous Rx's Medication Instructions Recorded Last Taken Type Sulfamethoxazole/Trimethoprim 1 each PO Q12HR #10 tablet 07/14/18 Unknown Rx [Bactrim DS TAB] Ziprasidone [Geodon] 20 mg PO BID #60 capsule 07/14/18 Unknown Rx Nystas/Diphen/Xyl Visc/Mylanta 30 ml MM TID #450 ml 08/09/18 Unknown Rx [Magic Mouthwash] Fluticasone [Flonase] 1 spray NS QDAY #1 bottle 09/14/18 Unknown Rx Docusate Sodium [Colace] 100 mg PO BID PRN #60 capsule 09/18/18 Unknown Rx metroNIDAZOLE [Flagyl TAB] 500 mg PO Q12HR #14 tab 12/04/18 Unknown Rx Ferrous Gluconate [Ferrous 324 mg PO TID #20 tablet 01/10/19 Unknown Rx Gluconate 324 MG] Iron Fum,Ps/Folic/Bcomp,C No.9 1 each PO BID 30 Days #60 capsule 02/27/19 Unknown Rx [Integra Plus Capsule] Butalb/Acetamin/Caff 50-325-40 1 tab PO Q6HR PRN #14 tab 04/06/19 Unknown Rx [Fioricet 50-325-40] Famotidine [Pepcid] 20 mg PO BID #20 tablet 04/06/19 Unknown Rx Ferrous Sulfate [Feosol 325 MG tab] 325 mg PO BID #60 tablet 04/06/19 Unknown Rx Mag Hydrox/Aluminum Hyd/Simeth 20 ml PO QID PRN #1 bottle 04/06/19 Unknown Rx [Maalox Advanced Suspension] Ondansetron [Zofran Odt] 4 mg PO Q8HR PRN #20 tab.rapdis 04/06/19 Unknown Rx Acetaminophen [Non-Aspirin Extra 1,000 mg PO Q6H PRN #30 tablet 04/14/19 Unknown Rx Strength] Metoclopramide [Reglan] 10 mg PO Q8H PRN #30 tab 04/14/19 Unknown Rx diphenhydrAMINE [Benadryl CAP] 25 mg PO Q8HR PRN #30 capsule 04/14/19 Unknown Rx Albuterol INH(or & Nicu Only) 1 - 2 puff IH Q6H PRN #1 inh 06/01/19 Unknown Rx [ProAir HFA Inhaler] Azithromycin [Zithromax Z-AUSTEN] 250 mg PO DAILY #6 tablet 06/01/19 Unknown Rx Benzonatate [Tessalon Perles] 100 mg PO Q8HR #30 capsule 06/01/19 Unknown Rx Ibuprofen [Motrin] 600 mg PO Q8H PRN #20 tablet 06/01/19 Unknown Rx methylPREDNISolone [Medrol 4MG 4 mg PO DAILY #21 tab.ds.pk 06/01/19 Unknown Rx DOSEPAK (21 tabs)] Allergies Allergy/AdvReac Type Severity Reaction Status Date / Time No Known Allergies Allergy Verified 09/14/18 08:53 ED Review of Systems ROS: Stated complaint: DETOX Other details as noted in HPI Comment: All other systems reviewed and negative Constitutional: denies: chills, fever Respiratory: shortness of breath Cardiovascular: denies: chest pain Gastrointestinal: abdominal pain. denies: nausea, vomiting Genitourinary: abnormal menses ED Past Medical Hx - Past Medical History Previous Medical History?: Yes Hx Hypertension: No Hx CVA: No Hx Heart Attack/AMI: No Hx Congestive Heart Failure: No Hx Diabetes: No Hx Deep Vein Thrombosis: No Hx Pulmonary Embolism: No Hx GERD: No Hx Liver Disease: No Hx Renal Disease: No Hx Sickle Cell Disease: No Hx Arthritis: No Hx Headaches / Migraines: No Hx Seizures: No Hx Kidney Stones: No Hx Psychiatric Treatment: No Hx Asthma: No Hx COPD: No Hx Tuberculosis: No Hx Dementia: No Hx HIV: No Additional medical history: iron deficiency Anemia, HEAVY MENSES WITH BLOOD TRANSFUSION, Frequent Nose bleeds - Surgical History Past Surgical History?: Yes Hx Coronary Stent: No Hx Open Heart Surgery: No Hx Pacemaker: No Hx Internal Defibrillator: No Hx Cholecystectomy: No Hx Appendectomy: No Hx Breast Surgery: No Additional Surgical History: x 2 - Social History Smoking Status: Current Every Day Smoker Substance Use Type: Alcohol, Cocaine - Medications Home Medications: Home Medications Medication Instructions Recorded Confirmed Last Taken Type Sulfamethoxazole/Trimethoprim 1 each PO Q12HR #10 tablet 07/14/18 Unknown Rx [Bactrim DS TAB] Ziprasidone [Geodon] 20 mg PO BID #60 capsule 07/14/18 Unknown Rx Nystas/Diphen/Xyl Visc/Mylanta 30 ml MM TID #450 ml 08/09/18 Unknown Rx [Magic Mouthwash] Fluticasone [Flonase] 1 spray NS QDAY #1 bottle 09/14/18 Unknown Rx Docusate Sodium [Colace] 100 mg PO BID PRN #60 capsule 09/18/18 Unknown Rx metroNIDAZOLE [Flagyl TAB] 500 mg PO Q12HR #14 tab 12/04/18 Unknown Rx Ferrous Gluconate [Ferrous 324 mg PO TID #20 tablet 01/10/19 Unknown Rx Gluconate 324 MG] Iron Fum,Ps/Folic/Bcomp,C No.9 1 each PO BID 30 Days #60 capsule 02/27/19 Unkno wn Rx [Integra Plus Capsule] Butalb/Acetamin/Caff 50-325-40 1 tab PO Q6HR PRN #14 tab 04/06/19 Unknown Rx [Fioricet 50-325-40] Famotidine [Pepcid] 20 mg PO BID #20 tablet 04/06/19 Unknown Rx Ferrous Sulfate [Feosol 325 MG tab] 325 mg PO BID #60 tablet 04/06/19 Unknown Rx Mag Hydrox/Aluminum Hyd/Simeth 20 ml PO QID PRN #1 bottle 04/06/19 Unknown Rx [Maalox Advanced Suspension] Ondansetron [Zofran Odt] 4 mg PO Q8HR PRN #20 tab.rapdis 04/06/19 Unknown Rx Acetaminophen [Non-Aspirin Extra 1,000 mg PO Q6H PRN #30 tablet 04/14/19 Unknown Rx Strength] Metoclopramide [Reglan] 10 mg PO Q8H PRN #30 tab 04/14/19 Unknown Rx diphenhydrAMINE [Benadryl CAP] 25 mg PO Q8HR PRN #30 capsule 04/14/19 Unknown Rx Albuterol INH(or & Nicu Only) 1 - 2 puff IH Q6H PRN #1 inh 06/01/19 Unknown Rx [ProAir HFA Inhaler] Azithromycin [Zithromax Z-AUSTEN] 250 mg PO DAILY #6 tablet 06/01/19 Unknown Rx Benzonatate [Tessalon Perles] 100 mg PO Q8HR #30 capsule 06/01/19 Unknown Rx Ibuprofen [Motrin] 600 mg PO Q8H PRN #20 tablet 06/01/19 Unknown Rx methylPREDNISolone [Medrol 4MG 4 mg PO DAILY #21 tab.ds.pk 06/01/19 Unknown Rx DOSEPAK (21 tabs)] ED Physical Exam - General Limitations: No Limitations General appearance: alert, in no apparent distress - Head Head exam: Present: atraumatic, normocephalic - Eye Eye exam: Present: normal appearance, EOMI - ENT ENT exam: Present: mucous membranes moist - Neck Neck exam: Present: normal inspection - Respiratory Respiratory exam: Present: normal lung sounds bilaterally. Absent: respiratory distress - Cardiovascular Cardiovascular Exam: Present: regular rate, normal rhythm - GI/Abdominal GI/Abdominal exam: Present: soft. Absent: distended, tenderness - Extremities Exam Extremities exam: Present: normal inspection - Neurological Exam Neurological exam: Present: alert, oriented X3 - Psychiatric Psychiatric exam: Present: normal affect, normal mood - Skin Skin exam: Present: warm, dry, intact, normal color ED Course Vital Signs 06/29/19 06/29/19 06/29/19 05:00 14:25 14:30 Temperature 98.4 F 98.2 F Pulse Rate 85 68 Respiratory 18 17 18 Rate Blood Pressure 137/70 Blood Pressure 153/93 [Left] O2 Sat by Pulse 100 100 Oximetry - Consultations Consultation #1: 06/29/19 15:35 Spoke w/ Dr Mora. States admit to hospitalist for transfusion and pt can f/u as an outpt w/ [employer]. ED Medical Decision Making - Lab Data Result diagrams: 06/29/19 05:54 06/29/19 05:54 - Medical Decision Making 34 yo F w/ hx alcohol abuse and iron deficiency anemia presents to ED for alcohol detox. Pt found to have Hb 5.8. States she is currently on her menstrual period, reports hx of menorrhagia. Spoke w/ MARINE SERVICE MANAGER, Dr Horton. States admit to hospitalist and have pt f/u with him as outpt. Two units PRBCs ordered for transfusion. Will admit to Dr Colby, hospitalist, for further management. - Differential Diagnosis alcoholism, menorrhagia, anemia Critical Care Time: Yes Critical care time in (mins) excluding proc time.: 35 Critical care attestation.: If time is entered above; I have spent that time in minutes in the direct care of this critically ill patient, excluding procedure time. Critical Care Time: 35 minutes ED Disposition Clinical Impression: Severe anemia, Alcohol abuse, Menorrhagia Disposition: [id number] OP ADMIT IP TO THIS HOSP Is pt being admited?: Yes Condition: Stable Time of Disposition: 14:49
[2019-06-29] MEDS ORDERED: LORazepam 2 MG TAB PO PRN ×2 (14:48)
[2019-06-29] MEDS ORDERED: ACETAMINOPHEN 500 MG TAB PO PRN (20:42)
[2019-06-29] MEDS ORDERED: diphenhydrAMINE 25 MG CAP PO PRN (20:42)
[2019-06-29] MEDS ORDERED: ALBUTEROL 8.5 GM INHALATION IH PRN (20:42)
[2019-06-29] MEDS ORDERED: IBUPROFEN 600 MG TAB PO PRN (20:42)
[2019-06-29] MEDS ORDERED: METOCLOPRAMIDE 10 MG TAB PO PRN (20:42)
[2019-06-29] MEDS ORDERED: DOCUSATE SODIUM 100 MG CAP PO PRN (20:42)
[2019-06-29] MEDS ORDERED: BUTALB/ACETAMINOPHEN/CAFFEINE TAB PO PRN (20:42)
[2019-06-29] MEDS ORDERED: ALBUTEROL 2.5 MG/3 ML NEBU IH PRN (21:00)
[2019-06-29] MEDS: ZIPRASIDONE 20 MG CAP PO SCH (22:36)
[2019-06-29] MEDS ORDERED: OXYMETAZOLINE 0.05% NASAL SPRAY NS PRN (22:50)
[2019-06-29] MEDS: FLUTICASONE PROPIONATE NASAL SPRAY 16 GM NS SCH (23:43)
--- NOTE | 2019-06-30 06:30 | History and Physical Report ---
History of Present Illness Date of examination: 06/29/19 Date of admission: 06/29/19 14:47 Chief complaint: Wants help with ETOH dependence History of present illness: 34-year-old female with history of alcohol abuse, iron deficiency anemia, presents to ED requesting initially requesting alcohol detox. Patient states she felt as if she drank too much alcohol yesterday and did not feel well. Labs were ordered at triage. Pt has hemoglobin of 5.8. She does report some dyspnea on exertion and generalized weakness. Pt states she is currently on her menstrual period. Reports heavy menstrual periods for 7 years.. Has required blood transfusions in the past. Pt is unsure if she has fibroids. Past Medical History Previous Medical History?: Yes Iron deficiency Anemia, Menorrhagia Frequent Nose bleeds Surgical History Past Surgical History?: Yes Additional Surgical History: x 2 Social History Smoking Status: Current Every Day Smoker Substance Use Type: Alcohol, Cocaine Family History Htn Medications Home Medications: Home Medications Medication Instructions Recorded Confirmed Last Taken Type Sulfamethoxazole/Trimethoprim 1 each PO Q12HR #10 tablet 07/14/18 Unknown Rx [Bactrim DS TAB] Ziprasidone [Geodon] 20 mg PO BID #60 capsule 07/14/18 Unknown Rx Nystas/Diphen/Xyl Visc/Mylanta 30 ml MM TID #450 ml 08/09/18 Unknown Rx [Magic Mouthwash] Fluticasone [Flonase] 1 spray NS QDAY #1 bottle 09/14/18 Unknown Rx Docusate Sodium [Colace] 100 mg PO BID PRN #60 capsule 09/18/18 Unknown Rx metroNIDAZOLE [Flagyl TAB] 500 mg PO Q12HR #14 tab 12/04/18 Unknown Rx Ferrous Gluconate [Ferrous 324 mg PO TID #20 tablet 01/10/19 Unknown Rx Gluconate 324 MG] Iron Fum,Ps/Folic/Bcomp,C No.9 1 each PO BID 30 Days #60 capsule 02/27/19 Unknown Rx [Integra Plus Capsule] Butalb/Acetamin/Caff 50-325-40 1 tab PO Q6HR PRN #14 tab 04/06/19 Unknown Rx [Fioricet 50-325-40] Famotidine [Pepcid] 20 mg PO BID #20 tablet 04/06/19 Unknown Rx Ferrous Sulfate [Feosol 325 MG tab] 325 mg PO BID #60 tablet 04/06/19 Unknown Rx Mag Hydrox/Aluminum Hyd/Simeth 20 ml PO QID PRN #1 bottle 04/06/19 Unknown Rx [Maalox Advanced Suspension] Ondansetron [Zofran Odt] 4 mg PO Q8HR PRN #20 tab.rapdis 04/06/19 Unknown Rx Acetaminophen [Non-Aspirin Extra 1,000 mg PO Q6H PRN #30 tablet 04/14/19 Unknown Rx Strength] Metoclopramide [Reglan] 10 mg PO Q8H PRN #30 tab 04/14/19 Unknown Rx diphenhydrAMINE [Benadryl CAP] 25 mg PO Q8HR PRN #30 capsule 04/14/19 Unknown Rx Albuterol INH(or & Nicu Only) 1 - 2 puff IH Q6H PRN #1 inh 06/01/19 Unknown Rx [ProAir HFA Inhaler] Azithromycin [Zithromax Z-AUSTEN] 250 mg PO DAILY #6 tablet 06/01/19 Unknown Rx Benzonatate [Tessalon Perles] 100 mg PO Q8HR #30 capsule 06/01/19 Unknown Rx Ibuprofen [Motrin] 600 mg PO Q8H PRN #20 tablet 06/01/19 Unknown Rx methylPREDNISolone [Medrol 4MG 4 mg PO DAILY #21 tab.ds.pk 06/01/19 Unknown Rx DOSEPAK (21 tabs)] Review of Systems ROS: Stated complaint: DETOX Other details as noted in HPI Comment: All other systems reviewed and negative Constitutional: denies: chills, fever Respiratory: shortness of breath Cardiovascular: denies: chest pain Gastrointestinal: abdominal pain. denies: nausea, vomiting Genitourinary: abnormal menses Excessive menstrual cycle Medications and Allergies Allergies Allergy/AdvReac Type Severity Reaction Status Date / Time No Known Allergies Allergy Verified 09/14/18 08:53 Home Medications Medication Instructions Recorded Confirmed Last Taken Type Ziprasidone [Geodon] 20 mg PO BID #60 capsule 07/14/18 06/29/19 06/29/19 Rx Fluticasone [Flonase] 1 spray NS QDAY #1 bottle 09/14/18 06/29/19 Unknown Rx Ferrous Sulfate [Feosol 325 MG tab] 325 mg PO BID #60 tablet 04/06/19 06/29/19 Unknown Rx Active Meds: Active Medications Acetaminophen (Tylenol) 1,000 mg PO Q6H PRN PRN Reason: Headache Acetaminophen/Butalbital/Caffeine (Fioricet) 1 tab PO Q6H PRN PRN Reason: Headache Albuterol (Proventil) 2.5 mg IH Q6HRT PRN PRN Reason: Shortness Of Breath Diphenhydramine HCl (Benadryl) 25 mg PO Q8H PRN PRN Reason: Allergy Symptoms Last Admin: 06/29/19 23:40 Dose: 25 mg Documented by: Docusate Sodium (Colace) 100 mg PO BID PRN PRN Reason: Constipation Ferrous Gluconate (Fergon) 324 mg PO QDAY JACKELINE Fluticasone Propionate (Flonase) 50 mcg NS QDAY JACKELINE Last Admin: 06/29/19 23:43 Dose: 50 mcg Documented by: Ibuprofen (Ibuprofen) 600 mg PO Q8H PRN PRN Reason: PAIN (1-3) Lorazepam (Ativan) 2 mg PO Q1HR PRN PRN Reason: CIWA-Ar 8-15 Lorazepam (Ativan) 4 mg PO Q1HR PRN PRN Reason: CIWA-Ar 16-25 Metoclopramide HCl (Reglan) 10 mg PO Q8H PRN PRN Reason: Headache Oxymetazoline HCl (Vicks Sinex) 2 spray NS Q12H PRN PRN Reason: Nasal Congestion Ziprasidone (Geodon) 20 mg PO BID [facility] Last Admin: 06/29/19 22:36 Dose: 20 mg Documented by: Exam - Constitutional Vitals: Temp Pulse Resp BP Pulse Ox 97.7 F 66 22 107/63 100 06/30/19 02:43 06/30/19 02:43 06/30/19 02:43 06/30/19 02:43 06/30/19 02:43 General appearance: Present: no acute distress, well-nourished - EENT Eyes: Present: PERRL ENT: hearing intact, clear oral mucosa, other (Pale conjunctiva) - Neck Neck: Present: supple, normal ROM - Respiratory Respiratory effort: normal Respiratory: bilateral: CTA - Cardiovascular Heart rate: 88 Rhythm: regular Heart Sounds: Present: S1 & S2. Absent: rub, click - Extremities Extremities: pulses symmetrical, No edema Peripheral Pulses: within normal limits - Abdominal General gastrointestinal: Present: soft, non-tender, non-distended, normal bowel sounds Female genitourinary: Present: normal - Rectal Rectal Exam: deferred - Integumentary Integumentary: Present: clear, warm, dry - Musculoskeletal Musculoskeletal: gait normal, strength equal bilaterally - Psychiatric Psychiatric: appropriate mood/affect, intact judgment & insight - Neurologic Neurologic: CNII-XII intact, moves all extremities - Allied Health Allied health notes reviewed: nursing, case management Results - Labs CBC & Chem 7: 06/29/19 05:54 06/29/19 05:54 Labs: Laboratory Last Values WBC 13.6 K/mm3 (4.5-11.0) H 06/29/19 05:54 RBC 3.32 M/mm3 (3.65-5.03) L 06/29/19 05:54 Hgb 5.8 gm/dl (10.1-14.3) L* 06/29/19 05:54 Hct 20.3 % (30.3-42.9) L 06/29/19 05:54 MCV 61 fl (79-97) L 06/29/19 05:54 MCH 17 pg (28-32) L 06/29/19 05:54 MCHC 28 % (30-34) L 06/29/19 05:54 RDW 23.4 % (13.2-15.2) H 06/29/19 05:54 Plt Count 358 K/mm3 (140-440) 06/29/19 05:54 Lymph % (Auto) 18.0 % (13.4-35.0) 06/29/19 05:54 [place] % (Auto) 5.5 % (0.0-7.3) 06/29/19 05:54 Eos % (Auto) 4.3 % (0.0-4.3) 06/29/19 05:54 Baso % (Auto) 1.3 % (0.0-1.8) 06/29/19 05:54 Lymph # 2.4 K/mm3 (1.2-5.4) 06/29/19 05:54 [place] # 0.7 K/mm3 (0.0-0.8) 06/29/19 05:54 Eos # 0.6 K/mm3 (0.0-0.4) H 06/29/19 05:54 Baso # 0.2 K/mm3 (0.0-0.1) H 06/29/19 05:54 Seg Neutrophils % 70.9 % (40.0-70.0) H 06/29/19 05:54 Seg Neutrophils # 9.6 K/mm3 (1.8-7.7) H 06/29/19 05:54 Sodium 138 mmol/L (137-145) 06/29/19 05:54 Potassium 3.8 mmol/L (3.6-5.0) 06/29/19 05:54 Chloride 100.9 mmol/L (98-107) 06/29/19 05:54 Carbon Dioxide 21 mmol/L (22-30) L 06/29/19 05:54 Anion Gap 20 mmol/L 06/29/19 05:54 BUN 10 mg/dL (7-17) 06/29/19 05:54 Creatinine 0.6 mg/dL (0.7-1.2) L 06/29/19 05:54 Estimated GFR > 60 ml/min 06/29/19 05:54 BUN/Creatinine Ratio 17 % 06/29/19 05:54 Glucose 91 mg/dL (65-100) 06/29/19 05:54 Calcium 9.1 mg/dL (8.4-10.2) 06/29/19 05:54 HCG, Qual Negative (Negative) 06/29/19 05:54 Urine Color Yellow (Yellow) 06/29/19 Unknown Urine Turbidity Turbid (Clear) 06/29/19 Unknown Urine pH 5.0 (5.0-7.0) 06/29/19 Unknown Ur Specific [place] 1.015 (1.003-1.030) 06/29/19 Unknown Urine Protein 100 mg/dl mg/dL (Negative) 06/29/19 Unknown Urine Glucose (UA) Neg mg/dL (Negative) 06/29/19 Unknown Urine Ketones Neg mg/dL (Negative) 06/29/19 Unknown Urine Blood Lg (Negative) 06/29/19 Unknown Urine Nitrite Neg (Negative) 06/29/19 Unknown Urine Bilirubin Neg (Negative) 06/29/19 Unknown Urine Urobilinogen < 2.0 mg/dL (<2.0) 06/29/19 Unknown Ur Leukocyte Esterase Lg (Negative) 06/29/19 Unknown Urine WBC (Auto) > 182.0 /HPF (0.0-6.0) H 06/29/19 Unknown Urine RBC (Auto) > 182.0 /HPF (0.0-6.0) 06/29/19 Unknown U Epithel Cells (Auto) 9.0 /HPF (0-13.0) 06/29/19 Unknown Urine WBC Clumps 3+ /HPF 06/29/19 Unknown Salicylates < 0.3 mg/dL (2.8-20.0) L 06/29/19 05:54 Urine Opiates Screen Presumptive negative 06/29/19 Unknown Urine Methadone Screen Presumptive negative 06/29/19 Unknown Acetaminophen < 5.0 ug/mL (10.0-30.0) L 06/29/19 05:54 Ur Barbiturates Screen Presumptive negative 06/29/19 Unknown Ur Phencyclidine Scrn Presumptive negative 06/29/19 Unknown Ur Amphetamines Screen Presumptive negative 06/29/19 Unknown U Benzodiazepines Scrn Presumptive negative 06/29/19 Unknown Urine Cocaine Screen Presumptive positive 06/29/19 Unknown U Marijuana (THC) Screen Presumptive negative 06/29/19 Unknown Drugs of Abuse Note Disclamer 06/29/19 Unknown Plasma/Serum Alcohol < 0.01 % (0-0.07) 06/29/19 05:54 Blood Type O POSITIVE 06/29/19 14:56 Antibody Screen Negative 06/29/19 14:56 Crossmatch See Detail 06/29/19 14:56 BMP 06/29/19 05:54 Sodium 138 Potassium 3.8 Chloride 100.9 Carbon Dioxide 21 L BUN 10 Creatinine 0.6 L Glucose 91 Calcium 9.1 Assessment and Plan Advance Directives: Yes (FC) VTE prophylaxis?: Chemical Plan of care discussed with patient/family: Yes - Patient Problems (1) Symptomatic anemia Current Visit: Yes Status: Acute Plan to address problem: Sec to Menorrhagia Pelvic US Transfuse 2 units of PRBC anemia work up (2) Alcohol abuse Current Visit: Yes Status: Chronic Plan to address problem: On CIWA protocol consult for detox as outpatient/Inpatient (3) UTI (urinary tract infection) Current Visit: No Status: Acute Qualifiers: Urinary tract infection type: acute cystitis Plan to address problem: On Rocephin pending urine cultures (4) Asthma Current Visit: Yes Status: Inactive Qualifiers: Asthma complication type: unspecified Plan to address problem: On Inhalers prn (5) DVT prophylaxis Current Visit: Yes Status: Acute Plan to address problem: On Heparin and GI prophylaxis
[2019-06-30 07:29] LABS: Hematocrit 26.8 % (30.3-42.9); Hemoglobin 8.2 gm/dl (10.1-14.3)
[2019-06-30 07:47] LABS: % Iron Saturation 3.26 %
--- NOTE | 2019-06-30 08:38 | Progress Note ---
Assessment and Plan Assessment and plan: Symptomatic anemia. Etiology secondary to metromenorrhagia. Follow-up pelvic ultrasound. Transfused 2 units PRBCs. Follow-up H&H. EtOH abuse. Continue CIWA protocol. Mental health evaluation. UTI. Continue Rocephin and follow-up cultures. Asthma. Continue bronchodilators/nebulizers as needed. History Interval history: No new issues overnight. Hospitalist Physical - Constitutional Vitals: Temp Pulse Resp BP Pulse Ox 97.9 F 70 20 110/60 100 06/30/19 06:00 06/30/19 06:00 06/30/19 06:00 06/30/19 06:00 06/30/19 06:00 General appearance: Present: no acute distress, well-nourished - EENT Eyes: Present: PERRL, EOM intact ENT: hearing intact, clear oral mucosa, dentition normal - Neck Neck: Present: supple, normal ROM - Respiratory Respiratory effort: normal Respiratory: bilateral: CTA - Cardiovascular Rhythm: regular Heart Sounds: Present: S1 & S2. Absent: gallop, rub - Extremities Extremities: no ischemia, No edema, Full ROM - Abdominal General gastrointestinal: soft, non-tender, non-distended, normal bowel sounds - Integumentary Integumentary: Present: clear, warm, dry - Neurologic Neurologic: CNII-XII intact, moves all extremities Results - Labs CBC & Chem 7: 06/30/19 06:36 06/29/19 05:54 Labs: Laboratory Last Values WBC 13.6 K/mm3 (4.5-11.0) H 06/29/19 05:54 RBC 3.32 M/mm3 (3.65-5.03) L 06/29/19 05:54 Hgb 8.2 gm/dl (10.1-14.3) L 06/30/19 06:36 Hct 26.8 % (30.3-42.9) L D 06/30/19 06:36 MCV 61 fl (79-97) L 06/29/19 05:54 MCH 17 pg (28-32) L 06/29/19 05:54 MCHC 28 % (30-34) L 06/29/19 05:54 RDW 23.4 % (13.2-15.2) H 06/29/19 05:54 Plt Count 358 K/mm3 (140-440) 06/29/19 05:54 Lymph % (Auto) 18.0 % (13.4-35.0) 06/29/19 05:54 [place] % (Auto) 5.5 % (0.0-7.3) 06/29/19 05:54 Eos % (Auto) 4.3 % (0.0-4.3) 06/29/19 05:54 Baso % (Auto) 1.3 % (0.0-1.8) 06/29/19 05:54 Lymph # 2.4 K/mm3 (1.2-5.4) 06/29/19 05:54 [place] # 0.7 K/mm3 (0.0-0.8) 06/29/19 05:54 Eos # 0.6 K/mm3 (0.0-0.4) H 06/29/19 05:54 Baso # 0.2 K/mm3 (0.0-0.1) H 06/29/19 05:54 Seg Neutrophils % 70.9 % (40.0-70.0) H 06/29/19 05:54 Seg Neutrophils # 9.6 K/mm3 (1.8-7.7) H 06/29/19 05:54 Sodium 138 mmol/L (137-145) 06/29/19 05:54 Potassium 3.8 mmol/L (3.6-5.0) 06/29/19 05:54 Chloride 100.9 mmol/L (98-107) 06/29/19 05:54 Carbon Dioxide 21 mmol/L (22-30) L 06/29/19 05:54 Anion Gap 20 mmol/L 06/29/19 05:54 BUN 10 mg/dL (7-17) 06/29/19 05:54 Creatinine 0.6 mg/dL (0.7-1.2) L 06/29/19 05:54 Estimated GFR > 60 ml/min 06/29/19 05:54 BUN/Creatinine Ratio 17 % 06/29/19 05:54 Glucose 91 mg/dL (65-100) 06/29/19 05:54 Calcium 9.1 mg/dL (8.4-10.2) 06/29/19 05:54 Iron 14 ug/dL (37-170) L 06/30/19 06:41 TIBC 429 mcg/dL (250-450) 06/30/19 06:41 % Saturation 3.26 % 06/30/19 06:41 Transferrin 362 mg/dl (192-382) 06/30/19 06:41 HCG, Qual Negative (Negative) 06/29/19 05:54 Urine Color Yellow (Yellow) 06/29/19 Unknown Urine Turbidity Turbid (Clear) 06/29/19 Unknown Urine pH 5.0 (5.0-7.0) 06/29/19 Unknown Ur Specific [place] 1.015 (1.003-1.030) 06/29/19 Unknown Urine Protein 100 mg/dl mg/dL (Negative) 06/29/19 Unknown Urine Glucose (UA) Neg mg/dL (Negative) 06/29/19 Unknown Urine Ketones Neg mg/dL (Negative) 06/29/19 Unknown Urine Blood Lg (Negative) 06/29/19 Unknown Urine Nitrite Neg (Negative) 06/29/19 Unknown Urine Bilirubin Neg (Negative) 06/29/19 Unknown Urine Urobilinogen < 2.0 mg/dL (<2.0) 06/29/19 Unknown Ur Leukocyte Esterase Lg (Negative) 06/29/19 Unknown Urine WBC (Auto) > 182.0 /HPF (0.0-6.0) H 06/29/19 Unknown Urine RBC (Auto) > 182.0 /HPF (0.0-6.0) 06/29/19 Unknown U Epithel Cells (Auto) 9.0 /HPF (0-13.0) 06/29/19 Unknown Urine WBC Clumps 3+ /HPF 06/29/19 Unknown Salicylates < 0.3 mg/dL (2.8-20.0) L 06/29/19 05:54 Urine Opiates Screen Presumptive negative 06/29/19 Unknown Urine Methadone Screen Presumptive negative 06/29/19 Unknown Acetaminophen < 5.0 ug/mL (10.0-30.0) L 06/29/19 05:54 Ur Barbiturates Screen Presumptive negative 06/29/19 Unknown Ur Phencyclidine Scrn Presumptive negative 06/29/19 Unknown Ur Amphetamines Screen Presumptive negative 06/29/19 Unknown U Benzodiazepines Scrn Presumptive negative 06/29/19 Unknown Urine Cocaine Screen Presumptive positive 06/29/19 Unknown U Marijuana (THC) Screen Presumptive negative 06/29/19 Unknown Drugs of Abuse Note Disclamer 06/29/19 Unknown Plasma/Serum Alcohol < 0.01 % (0-0.07) 06/29/19 05:54 Blood Type O POSITIVE 06/29/19 14:56 Antibody Screen Negative 06/29/19 14:56 Crossmatch See Detail 06/29/19 14:56 Active Medications - Current Medications Current Medications: Generic Name Dose Route Start Last Admin Trade Name Freq PRN Reason Stop Dose Admin Acetaminophen 1,000 mg 06/29/19 20:42 Tylenol PO Q6H PRN Headache Acetaminophen/Butalbital/Caffeine 1 tab 06/29/19 20:42 Fioricet PO Q6H PRN Headache Albuterol 2.5 mg 06/29/19 21:00 Proventil IH Q6HRT PRN Shortness Of Breath Diphenhydramine HCl 25 mg 06/29/19 20:42 06/29/19 23:40 Benadryl PO 25 mg Q8H PRN Administration Allergy Symptoms Docusate Sodium 100 mg 06/29/19 20:42 Colace PO BID PRN Constipation Ferrous Gluconate 324 mg 06/30/19 10:00 Fergon PO QDAY JACKELINE Fluticasone Propionate 50 mcg 06/30/19 00:00 06/29/19 23:43 Flonase NS 50 mcg QDAY JACKELINE Administration Ceftriaxone Sodium 2 gm in 100 mls @ 200 mls/hr 06/30/19 08:00 Rocephin/Ns 2 Gm/100 Ml IV Q24H JACKELINE Protocol Ibuprofen 600 mg 06/29/19 20:42 Ibuprofen PO Q8H PRN PAIN (1-3) Lorazepam 2 mg 06/29/19 14:48 Ativan PO Q1HR PRN CIWA-Ar 8-15 Lorazepam 4 mg 06/29/19 14:48 Ativan PO Q1HR PRN CIWA-Ar 16-25 Metoclopramide HCl 10 mg 06/29/19 20:42 Reglan PO Q8H PRN Headache Oxymetazoline HCl 2 spray 06/29/19 22:50 Vicks Sinex NS Q12H PRN Nasal Congestion Ziprasidone 20 mg 06/29/19 22:00 06/29/19 22:36 Geodon PO 20 mg BID JACKELINE Administration
[2019-06-30] MEDS ORDERED: FLUTICASONE PROPIONATE NASAL SPRAY 16 GM NS SCH (10:00)
[2019-06-30] MEDS: cefTRIAXone/NS 2 GM/100 ML 2 GM/100 ML BAG IV SCH (10:53)
[2019-06-30] MEDS: FERROUS GLUCONATE 324 MG TAB PO SCH (10:54)
[2019-06-30] MEDS: ZIPRASIDONE 20 MG CAP PO SCH ×2 (10:55→21:14)
[2019-06-30] MEDS: FLUTICASONE PROPIONATE NASAL SPRAY 16 GM NS SCH (10:56)
--- NOTE | 2019-06-30 12:44 | Consultation ---
History of Present Illness - Reason for Consult Consult date: 06/30/19 Reason for consult: ETOH abuse - History of Present Psychiatric Illness Nga Jones is a 34 y/o female patient who states she was admitted into the hospital for "anemia." The patient is a/o x 3. She makes fair eye contact. She is calm and cooperative. The patient states she was "unsure why psychiatry was consulted." She denies any psychiatric history, any suicidal thoughts or attempts now or in the past. The patient denies hallucinations of any kind. She states she "drinks and does cocaine sometimes." She says she "drinks wine occasional." She considers herself to be a "social drinker." She says she's been "doing cocaine about three weeks." She then says "I tried some stuff but I wouldn't say I'm addicted." The patient says "I was thinking I wanted rehab, but I know what I have to do." PAST PSYCHIATRIC HISTORY: Diagnoses: Denies Suicide attempts or Self-harm behavior: Denies Prior psychiatric hospitalizations: Denies Substance Abuse history: Cocaine Previous psychiatric medications tried: Denies Outpatient treatment: Denies PAST MEDICAL HISTORY: Anemia Family Psychiatric History None reported or documented SOCIAL HISTORY Marital Status: Single Living Arrangements: Lives alone Employment Status: Employed Access to guns/weapons: Denies Education: Some college History of Abuse: Denies Legal History: Denies REVIEW OF SYSTEMS Constitutional: Negative for weight loss ENT: Negative for stridor Respiratory: Negative for cough or hemoptysis All other systems reviewed and are negative MSE Appearance: Awake. Dressed appropriately. Behavior: calm and cooperative Mood: "good" Affect: Congruent Thought Process: Goal directed Speech: Normal tone and pace Thought Content Suicidal: Denies Homicidal: Denies Hallucinations: Denies Delusions: None elicited Consciousness: Alert Cognition/Memory: Good Insight/Judgment: Fiar Diagnoses: Cocaine Abuse, Uncomplicated Plan No medications given Medical: per primary Disposition: The patient does not meed the criteria for acute inpatient treatment at this time. She may discharge home once medically clear. The patient is to abstain from alcohol and illicit drugs Follow up with primary doctor or establish outpatient psychiatry in 7 to 14 days. The patient verbalizes understanding and agreement of plan. Will sign off. Please call with any questions or concerns. Thank you for this consult. Medications and Allergies Allergies Allergy/AdvReac Type Severity Reaction Status Date / Time No Known Allergies Allergy Verified 09/14/18 08:53 Home Medications Medication Instructions Recorded Confirmed Last Taken Type Ziprasidone [Geodon] 20 mg PO BID #60 capsule 07/14/18 06/29/19 06/29/19 Rx Fluticasone [Flonase] 1 spray NS QDAY #1 bottle 09/14/18 06/29/19 Unknown Rx Ferrous Sulfate [Feosol 325 MG tab] 325 mg PO BID #60 tablet 04/06/19 06/29/19 Unknown Rx Active Meds: Active Medications Acetaminophen (Tylenol) 1,000 mg PO Q6H PRN PRN Reason: Headache Acetaminophen/Butalbital/Caffeine (Fioricet) 1 tab PO Q6H PRN PRN Reason: Headache Albuterol (Proventil) 2.5 mg IH Q6HRT PRN PRN Reason: Shortness Of Breath Diphenhydramine HCl (Benadryl) 25 mg PO Q8H PRN PRN Reason: Allergy Symptoms Last Admin: 06/29/19 23:40 Dose: 25 mg Documented by: Docusate Sodium (Colace) 100 mg PO BID PRN PRN Reason: Constipation Ferrous Gluconate (Fergon) 324 mg PO QDAY [facility] Last Admin: 06/30/19 10:54 Dose: 324 mg Documented by: Fluticasone Propionate (Flonase) 50 mcg NS QDAY [facility] Last Admin: 06/30/19 10:56 Dose: 50 mcg Documented by: Ceftriaxone Sodium (Rocephin/Ns 2 Gm/100 Ml) 2 gm in 100 mls @ 200 mls/hr IV Q24H [facility]; Protocol Last Admin: 06/30/19 10:53 Dose: 200 mls/hr Documented by: Ibuprofen (Ibuprofen) 600 mg PO Q8H PRN PRN Reason: PAIN (1-3) Lorazepam (Ativan) 2 mg PO Q1HR PRN PRN Reason: CIWA-Ar 8-15 Lorazepam (Ativan) 4 mg PO Q1HR PRN PRN Reason: CIWA-Ar 16-25 Metoclopramide HCl (Reglan) 10 mg PO Q8H PRN PRN Reason: Headache Oxymetazoline HCl (Vicks Sinex) 2 spray NS Q12H PRN PRN Reason: Nasal Congestion Ziprasidone (Geodon) 20 mg PO BID JACKELINE Last Admin: 06/30/19 10:55 Dose: 20 mg Documented by: Mental Status Exam - Vital signs Last Vital Signs Temp 97.7 F 06/30/19 11:46 Pulse 70 06/30/19 11:46 Resp 12 06/30/19 11:46 BP 118/62 06/30/19 11:46 Pulse Ox 99 06/30/19 11:46 Results Result Diagrams: 06/30/19 06:36 06/29/19 05:54 Abnormal lab results 06/29/19 06/30/19 06/30/19 Range/Units 14:56 06:36 06:41 Hgb 8.2 L (10.1-14.3) gm/dl Hct 26.8 L D (30.3-42.9) % Iron 14 L (37-170) ug/dL Crossmatch See Detail All other labs normal.
[2019-07-01 06:30] LABS: Hematocrit 27.7 % (30.3-42.9); Hemoglobin 8.4 gm/dl (10.1-14.3); Mean Corpuscular HGB Conc 30 % (30-34); Platelet Count 358 K/mm3 (140-440); Red Blood Count 4.04 M/mm3 (3.65-5.03)
[2019-07-01 06:31] LABS: Mean Corpuscular Volume 69 fl (79-97); Red Cell Distribution Width 30.2 % (13.2-15.2)
[2019-07-01 07:16] LABS: Blood Urea Nitrogen 8 mg/dL (7-17)
[2019-07-01 07:17] LABS: BUN/Creatinine Ratio 13; Calcium 8.8 mg/dL (8.4-10.2); Hemolysis Index 0
[2019-07-01 07:23] LABS: Anisocytosis 3+; Dimorphic RBC Yes; Hypochromasia 2+; Platelet Estimate Consistent w Auto; Total Cells Counted 100
--- NOTE | 2019-07-01 10:27 | Discharge Summary ---
Providers - Providers Date of Admission: 06/30/19 09:22 Date of discharge: 07/01/19 Attending physician: KENTRELL CHAUDHRY 06/30/19 06:40 Consult to Mental Health [CONS] Routine Reason For Exam: ETOH dependence Primary care physician: CHEY JOYNER MD Hospitalization Condition: Stable Disposition: DC-01 TO HOME OR SELFCARE Time spent for discharge: 32 min Core Measure Documentation - Palliative Care Palliative Care/ Comfort Measures: Not Applicable - Core Measures Any of the following diagnoses?: none Exam - Constitutional Vitals: Temp Pulse Resp BP Pulse Ox 97.4 F L 66 18 121/68 97 07/01/19 05:13 07/01/19 05:13 07/01/19 05:13 07/01/19 05:13 07/01/19 05:13 General appearance: Present: no acute distress, well-nourished - EENT Eyes: Present: PERRL, EOM intact - Neck Neck: Present: supple, normal ROM - Respiratory Respiratory effort: normal Respiratory: negative: rales, rhonchi, wheezing - Cardiovascular Rhythm: regular Heart Sounds: Present: S1 & S2 - Extremities Extremities: no ischemia, No edema - Abdominal General gastrointestinal: Present: soft, non-tender, non-distended, normal bowel sounds - Integumentary Integumentary: Present: clear, warm - Musculoskeletal Musculoskeletal: strength equal bilaterally, generalized weakness - Psychiatric Psychiatric: appropriate mood/affect, cooperative - Neurologic Neurologic: moves all extremities Plan Activity: advance as tolerated Diet: regular Additional Instructions: Advised to see private CONCRETE RUBBER for further evaluation of menorrhagia. Advised to see [facility] in 1 week upon discharge Follow up with: CHEY JOYNER MD [Primary Care Provider] - 3-5 Days NELSY DALEY MD [Staff Physician] - 7 Days Prescriptions: Ferrous Sulfate [Feosol 325 MG tab] 325 mg PO BID #60 tablet
[2019-07-01] MEDS: cefTRIAXone/NS 2 GM/100 ML 2 GM/100 ML BAG IV SCH (10:57)
[2019-07-01] MEDS: FLUTICASONE PROPIONATE NASAL SPRAY 16 GM NS SCH (10:57)
[2019-07-01] MEDS: ZIPRASIDONE 20 MG CAP PO SCH (10:58)
[2019-07-01] MEDS: FERROUS GLUCONATE 324 MG TAB PO SCH (10:58)
[2019-07-01 12:42] VITALS: BP 121/65
--- NOTE | 2019-07-01 14:55 | Discharge Summary ---
Providers - Providers Date of Admission: 06/30/19 09:22 Date of discharge: 07/01/19 Attending physician: KENTRELL CHAUDHRY 06/30/19 06:40 Consult to Mental Health [CONS] Routine Reason For Exam: ETOH dependence Primary care physician: CAMPAIGN SPECIALIST Hospitalization Condition: Stable Disposition: DC-01 TO HOME OR SELFCARE Time spent for discharge: 32 min Core Measure Documentation - Palliative Care Palliative Care/ Comfort Measures: Not Applicable - Core Measures Any of the following diagnoses?: history only Exam - Constitutional Vitals: Temp Pulse Resp BP Pulse Ox 98.0 F 75 18 121/65 97 07/01/19 11:27 07/01/19 11:27 07/01/19 11:27 07/01/19 11:27 07/01/19 11:27 General appearance: Present: no acute distress, well-nourished - EENT Eyes: Present: PERRL, EOM intact Plan Activity: advance as tolerated Diet: regular Additional Instructions: Advised to see private OCCUPATIONAL THERAPY INSTRUCTOR for further evaluation of menorrhagia. Advised to see private psychiatrist/[facility] health in 1 week Follow up with: CHEY JOYNER MD [Primary Care Provider] - 3-5 Days NELSY DALEY MD [Staff Physician] - 7 Days Prescriptions: Ferrous Sulfate [Feosol 325 MG tab] 325 mg PO BID #60 tablet
== END 2019-07-01 16:02 | disposition home or self-care (01) | DRG 760 ==
LOC: ED 04:52 → 3A 14:47 → OBSVTOIN 06-30 09:22
PROVIDERS: ADMIT Internal Medicine; ATTEND Internal Medicine
PROC: 30233N1 Transfusion of Nonautologous Red Blood Cells into Peripheral Vein, Percutaneous Approach (ICD-10-PCS; principal; 2019-06-29)
DX: N92.0 Excessive and frequent menstruation with regular cycle (principal); N30.00 Acute cystitis without hematuria; D50.9 Iron deficiency anemia, unspecified; F17.210 Nicotine dependence, cigarettes, uncomplicated; J45.909 Unspecified asthma, uncomplicated; F14.10 Cocaine abuse, uncomplicated; F10.10 Alcohol abuse, uncomplicated; Z82.49 Family history of ischemic heart disease and other diseases of the circulatory system
CPT/HCPCS: 36415; 80048; 80307; 80320; 81001; 83550; 84703; 85007; 85014; 85018; 85025; 86850; 86900; 86901; 86920; 87086; 94640; 96374; G0378; G0480; J0696; J7040; P9016

== ENCOUNTER 2019-09-29 03:31 | Emergency (ER) | payer SELFPAY ==
--- NOTE | 2019-09-29 03:54 | Emergency Department Report ---
- General Chief Complaint: Upper Respiratory Infection Stated Complaint: NOSE ACHES Source: patient Mode of arrival: Ambulatory Limitations: No Limitations - History of Present Illness Initial Comments: Patient is a 34-year-old -Romanian female with a history of chronic anemia who presents to the ED with complaint of acute onset persistent nasal and sinus congestion, persistent sore throat and frontal sinus pressure and headache for the last 2 weeks. Patient states that she has been taking [id number] medications with no relief. Patient denies fever, chills, nausea and vomiting, diarrhea, abdominal pain, chest pain, shortness of breath, cough, dysuria, urinary frequency and urgency, neck pain, change in vision or syncope or palpitations. MD Complaint: rhinorrhea, nasal congestion, sinus pain -: Sudden, week(s) (2) Severity: moderate Severity scale (0 -10): 6 Quality: aching Consistency: constant Improves With: nothing Worsens With: nothing Associated Symptoms: denies other symptoms, headache, rhinorrhea, nasal congestion, sore throat. denies: fever, chills, myalgias, diaphoresis, stiff neck, cough, chest pain, shortness of breath, abdominal pain, nausea, vomiting, rash, confusion, right sweats, weight loss, epistaxis, hoarseness, ear pain Treatments Prior to Arrival: "cold medicine" - Related Data Previous Rx's Medication Instructions Recorded Last Taken Type Ziprasidone [Geodon] 20 mg PO BID #60 capsule 07/14/18 06/29/19 Rx Ferrous Sulfate [Feosol 325 MG tab] 325 mg PO BID #60 tablet 07/01/19 Unknown Rx Amoxicillin [Trimox CAP] 500 mg PO Q8H #30 capsule 09/29/19 Unknown Rx Cetirizine HCl [Zyrtec 10mg tab] 10 mg PO DAILY #30 tablet 09/29/19 Unknown Rx Fluticasone [Flonase] 1 spray NS QDAY #1 bottle 09/29/19 Unknown Rx Ibuprofen [Motrin] 600 mg PO Q8H PRN #20 tablet 09/29/19 Unknown Rx Allergies Allergy/AdvReac Type Severity Reaction Status Date / Time No Known Allergies Allergy Verified 09/14/18 08:53 ED Review of Systems ROS: Stated complaint: NOSE ACHES Other details as noted in HPI Constitutional: denies: chills, fever Eyes: denies: eye pain, eye discharge, vision change ENT: throat pain, congestion. denies: ear pain Respiratory: denies: cough, orthopnea, shortness of breath, SOB with exertion, wheezing Cardiovascular: denies: chest pain, palpitations Endocrine: no symptoms reported. denies: excessive sweating Gastrointestinal: denies: abdominal pain, nausea, vomiting, diarrhea Genitourinary: denies: urgency, dysuria, discharge Musculoskeletal: denies: back pain, joint swelling, arthralgia Skin: denies: rash, lesions Neurological: headache. denies: weakness, paresthesias Psychiatric: denies: anxiety, depression Hematological/Lymphatic: denies: easy bleeding, easy bruising ED Past Medical Hx - Past Medical History Previous Medical History?: Yes Hx Hypertension: No Hx CVA: No Hx Heart Attack/AMI: No Hx Congestive Heart Failure: No Hx Diabetes: No Hx Deep Vein Thrombosis: No Hx Pulmonary Embolism: No Hx GERD: No Hx Liver Disease: No Hx Renal Disease: No Hx Sickle Cell Disease: No Hx Arthritis: No Hx Headaches / Migraines: No Hx Seizures: No Hx Kidney Stones: No Hx Psychiatric Treatment: No Hx Asthma: No Hx COPD: No Hx Tuberculosis: No Hx Dementia: No Hx HIV: No Additional medical history: iron deficiency Anemia, HEAVY MENSES WITH BLOOD TRANSFUSION, Frequent Nose bleeds - Surgical History Past Surgical History?: Yes Hx Coronary Stent: No Hx Open Heart Surgery: No Hx Pacemaker: No Hx Internal Defibrillator: No Hx Cholecystectomy: No Hx Appendectomy: No Hx Breast Surgery: No Additional Surgical History: x 2 - Social History Smoking Status: Current Every Day Smoker - Medications Home Medications: Home Medications Medication Instructions Recorded Confirmed Last Taken Type Ziprasidone [Geodon] 20 mg PO BID #60 capsule 07/14/18 06/29/19 06/29/19 Rx Ferrous Sulfate [Feosol 325 MG tab] 325 mg PO BID #60 tablet 07/01/19 Unknown Rx Amoxicillin [Trimox CAP] 500 mg PO Q8H #30 capsule 09/29/19 Unknown Rx Cetirizine HCl [Zyrtec 10mg tab] 10 mg PO DAILY #30 tablet 09/29/19 Unknown Rx Fluticasone [Flonase] 1 spray NS QDAY #1 bottle 09/29/19 Unknown Rx Ibuprofen [Motrin] 600 mg PO Q8H PRN #20 tablet 09/29/19 Unknown Rx ED Physical Exam - General Limitations: No Limitations General appearance: alert, in no apparent distress - Head Head exam: Present: atraumatic, normocephalic, normal inspection - Eye Eye exam: Present: normal appearance, PERRL, EOMI Pupils: Present: normal accommodation - ENT ENT exam: Present: normal orophraynx, mucous membranes moist, TM's normal bilaterally, normal external ear exam, other (Grossly congested nasal passages; palpable frontal sinus tenderness) - Neck Neck exam: Present: normal inspection, full ROM. Absent: tenderness, lymphadenopathy - Respiratory Respiratory exam: Present: normal lung sounds bilaterally. Absent: respiratory distress, wheezes, rales, rhonchi, chest wall tenderness, accessory muscle use, decreased breath sounds, prolonged expiratory - Cardiovascular Cardiovascular Exam: Present: regular rate, normal rhythm, normal heart sounds. Absent: systolic murmur, diastolic murmur, rubs, gallop - GI/Abdominal GI/Abdominal exam: Present: soft, normal bowel sounds. Absent: tenderness, guarding, rebound, hyperactive bowel sounds, hypoactive bowel sounds, organomegaly - Extremities Exam Extremities exam: Present: normal inspection, full ROM, normal capillary refill - Back Exam Back exam: Present: normal inspection, full ROM. Absent: tenderness, CVA tenderness (R), muscle spasm, paraspinal tenderness, vertebral tenderness - Neurological Exam Neurological exam: Present: alert, oriented X3, CN II-XII intact, normal gait, reflexes normal - Psychiatric Psychiatric exam: Present: normal affect, normal mood - Skin Skin exam: Present: warm, dry, intact, normal color. Absent: rash ED Course Vital Signs 09/29/19 03:34 Temperature 98.0 F Pulse Rate 86 Respiratory 18 Rate Blood Pressure 147/83 O2 Sat by Pulse 99 Oximetry ED Medical Decision Making - Medical Decision Making This is a 34-year-old -Romanian female with a history of chronic anemia who presents to the ED with complaint of acute onset persistent nasal and sinus congestion, persistent sore throat and frontal sinus pressure and headache for the last 2 weeks. Patient states that she has been taking [id number] medications with no relief. In the ED, patient is alert and oriented x3 and is not in distress. Patient will discharge home on medications based on the physical exam findings of acute upper respiratory infection and frontal sinusitis. Patient was advised to follow-up with her primary care physician in 5 to 7 days for reevaluation or return to the ED immediately if symptoms get worse. - Differential Diagnosis URI; Sinusitis; Pharyngitis; Sinus headache Critical care attestation.: If time is entered above; I have spent that time in minutes in the direct care of this critically ill patient, excluding procedure time. ED Disposition Clinical Impression: Acute upper respiratory infection Acute frontal sinusitis Qualifiers: Recurrence: non-recurrent Qualified Code(s): J01.10 - Acute frontal sinusitis, unspecified Disposition: DC- TO HOME OR SELFCARE Is pt being admited?: No Does the pt Need Aspirin: No Condition: Stable Instructions: Acute Bacterial Rhinosinusitis (ED), Upper Respiratory Infection (ED) Additional Instructions: Take medication with food, drink plenty of fluids and follow-up with your primary care physician in 5 to 7 days for reevaluation. Return to the ED immediately if symptoms get worse. Prescriptions: Fluticasone [Flonase] 1 spray NS QDAY #1 bottle Ibuprofen [Motrin] 600 mg PO Q8H PRN #20 tablet PRN Reason: Pain Amoxicillin [Trimox CAP] 500 mg PO Q8H #30 capsule Cetirizine HCl [Zyrtec 10mg tab] 10 mg PO DAILY #30 tablet Referrals: [facility] [Provider Group] - 7-10 days Time of Disposition: 03:52 Print Language: TAIWANESE
[2019-09-30 13:05] VITALS: BP 116/52
== END 2019-09-29 04:08 | disposition home or self-care (01) ==
LOC: ED 03:31
DX: J06.9 Acute upper respiratory infection, unspecified (principal); J01.10 Acute frontal sinusitis, unspecified; F17.200 Nicotine dependence, unspecified, uncomplicated; Z98.890 Other specified postprocedural states; Z79.1 Long term (current) use of non-steroidal anti-inflammatories (NSAID); Z79.2 Long term (current) use of antibiotics; Z79.899 Other long term (current) drug therapy
CPT/HCPCS: 99282

== ENCOUNTER 2020-05-08 17:06 | Emergency (ER) | payer SELFPAY ==
[2020-05-08 20:08] LABS: Alanine Aminotransferase 6 units/L (7-56); Albumin 4.1 g/dL (3.9-5); BUN/Creatinine Ratio 12; Blood Urea Nitrogen 7 mg/dL (7-17); Calcium 9.2 mg/dL (8.4-10.2); Hemolysis Index 2
[2020-05-08 20:19] LABS: Mean Corpuscular HGB Conc 31 % (30-34); Platelet Count 566 K/mm3 (140-440); Red Blood Count 3.18 M/mm3 (3.65-5.03)
[2020-05-08 20:22] LABS: Mean Corpuscular Volume 59 fl (79-97)
[2020-05-08 20:23] LABS: Red Cell Distribution Width 23.6 % (13.2-15.2)
[2020-05-08 20:44] LABS: Hematocrit 18.6 % (30.3-42.9); Hemoglobin 5.8 gm/dl (10.1-14.3)
[2020-05-08 21:22] LABS: Bilirubin,Urine NEG (Negative); Blood,Urine SM (Negative); Color,Urine Yellow (Yellow); Mucus,Urine 3+ /HPF; WBC,Urine > 182.0 /HPF (0.0-6.0)
[2020-05-08 22:11] LABS: Anisocytosis 2+; Hypochromasia 2+; Total Cells Counted 100
[2020-05-08 22:12] LABS: Burr Cells Rare; Ovalocytes Rare; Tear Drop Cells Rare
[2020-05-08 22:14] LABS: Platelet Estimate Consistent w Auto
[2020-05-09] MEDS ORDERED: cefTRIAXone/NS 1 GM/50 ML 1 GM/50 ML BAG IV ONE (06:54)
[2020-05-09] MEDS ORDERED: MORPHINE 4 MG/1 ML INJ IV ONE (06:54)
[2020-05-09] MEDS ORDERED: SODIUM CHLORIDE 0.9% 500 ML 500 ML IV ONE ×2 (07:05→07:27)
[2020-05-09] MEDS ORDERED: KETOROLAC 30 MG/1 ML INJ IV ONE (07:05)
[2020-05-09] MEDS ORDERED: ONDANSETRON 4 MG/2 ML INJ IV ONE (07:05)
--- NOTE | 2020-05-09 07:22 | Emergency Department Report ---
ED Abdominal Pain HPI - General Chief Complaint: Abdominal Pain Stated Complaint: STOMACH PAIN Time Seen by Provider: 05/09/20 06:25 Source: patient Mode of arrival: Ambulatory Limitations: No Limitations - History of Present Illness Initial Comments: 35-year old female the past medical history of iron deficiency anemia requiring blood transfusion and x2 presents to the hospital complaining of suprapubic cramping abdominal pain rating to the back since yesterday. Pain is constant, moderate, but fluctuates in intensity. Pain is worse to palpation. No alleviating factors reported she denies nausea, vomiting, fever, melena, hematochezia, hematemesis, or dysuria. Urinary frequency reported. Patient states her last menstrual cycle ended approximately 2 weeks ago and lasted for 6 days. She denies as her menstrual cycles are currently heavy or significantly painful. Patient also endorses generalized fatigue and weakness. Patient is not currently taking iron tablets. As per medical record review patient was admitted here in September 2019 for iron deficiency anemia as well as anemia secondary to menorrhagia requiring PRBC. Is also noted that patient has a history of alcohol abuse - Related Data Previous Rx's Medication Instructions Recorded Last Taken Type Ziprasidone [Geodon] 20 mg PO BID #60 capsule 07/14/18 06/29/19 Rx Amoxicillin [Trimox CAP] 500 mg PO Q8H #30 capsule 09/29/19 Unknown Rx Cetirizine HCl [Zyrtec 10mg tab] 10 mg PO DAILY #30 tablet 09/29/19 Unknown Rx Fluticasone [Flonase] 1 spray NS QDAY #1 bottle 09/29/19 Unknown Rx Ferrous Sulfate [Feosol 325 MG tab] 325 mg PO DAILY #30 tablet 05/09/20 Unknown Rx Ibuprofen [Motrin 600 MG tab] 600 mg PO Q8H PRN #20 tablet 05/09/20 Unknown Rx Nitrofurantoin Burnet/M-Cryst 100 mg PO Q12HR #14 capsule 05/09/20 Unknown Rx [Macrobid CAP] Phenazopyridine [Pyridium] 100 mg PO TID #6 tab 05/09/20 Unknown Rx Allergies Allergy/AdvReac Type Severity Reaction Status Date / Time No Known Allergies Allergy Verified 09/14/18 08:53 ED Review of Systems ROS: Stated complaint: STOMACH PAIN Other details as noted in HPI Comment: All other systems reviewed and negative ED Past Medical Hx - Past Medical History Previous Medical History?: No Hx Hypertension: No Hx CVA: No Hx Heart Attack/AMI: No Hx Congestive Heart Failure: No Hx Diabetes: No Hx Deep Vein Thrombosis: No Hx Pulmonary Embolism: No Hx GERD: No Hx Liver Disease: No Hx Renal Disease: No Hx Sickle Cell Disease: No Hx Arthritis: No Hx Headaches / Migraines: No Hx Seizures: No Hx Kidney Stones: No Hx Psychiatric Treatment: No Hx Asthma: No Hx COPD: No Hx Tuberculosis: No Hx Dementia: No Hx HIV: No Additional medical history: iron deficiency Anemia, HEAVY MENSES WITH BLOOD TRANSFUSION, Frequent Nose bleeds - Surgical History Past Surgical History?: Yes Hx Coronary Stent: No Hx Open Heart Surgery: No Hx Pacemaker: No Hx Internal Defibrillator: No Hx Cholecystectomy: No Hx Appendectomy: No Hx Breast Surgery: No Additional Surgical History: x 2 - Social History Smoking Status: Current Every Day Smoker - Medications Home Medications: Home Medications Medication Instructions Recorded Confirmed Last Taken Type Ziprasidone [Geodon] 20 mg PO BID #60 capsule 07/14/18 06/29/19 06/29/19 Rx Amoxicillin [Trimox CAP] 500 mg PO Q8H #30 capsule 09/29/19 Unknown Rx Cetirizine HCl [Zyrtec 10mg tab] 10 mg PO DAILY #30 tablet 09/29/19 Unknown Rx Fluticasone [Flonase] 1 spray NS QDAY #1 bottle 09/29/19 Unknown Rx Ferrous Sulfate [Feosol 325 MG tab] 325 mg PO DAILY #30 tablet 05/09/20 Unknown Rx Ibuprofen [Motrin 600 MG tab] 600 mg PO Q8H PRN #20 tablet 05/09/20 Unknown Rx Nitrofurantoin Burnet/M-Cryst 100 mg PO Q12HR #14 capsule 05/09/20 Unknown Rx [Macrobid CAP] Phenazopyridine [Pyridium] 100 mg PO TID #6 tab 05/09/20 Unknown Rx ED Physical Exam - General Limitations: No Limitations - Other Other exam information: General: No acute distress Head: Atraumatic Eyes: normal appearance ENT: Moist mucous membranes Neck: Normal appearance, no midline tenderness Chest: Clear to auscultation bilaterally CV: Regular rate and rhythm Abdomen: Soft, normal bowel sounds, suprapubic tenderness to palpate, nondistended, no rebound or guarding Rectal: Guaiac negative brown stool, no gross blood Back: Normal inspection Extremity: Normal inspection, full range of motion Neuro: Alert O x 3, no facial asymmetry, speech clear, no gross motor sensory deficit Psych: Appropriate behavior Skin: No rash ED Course Vital Signs 05/08/20 05/09/20 05/09/20 19:16 07:01 07:15 Temperature 97.8 F Pulse Rate 78 75 77 Respiratory 18 15 15 Rate Blood Pressure 118/40 124/70 124/70 O2 Sat by Pulse 99 100 100 Oximetry 05/09/20 05/09/20 05/09/20 07:27 07:45 08:15 Temperature Pulse Rate 75 71 Respiratory 18 12 11 L Rate Blood Pressure 127/55 106/53 O2 Sat by Pulse 98 99 98 Oximetry 05/09/20 05/09/20 05/09/20 08:45 09:01 09:15 Temperature Pulse Rate 64 64 66 Respiratory 15 11 L 11 L Rate Blood Pressure 99/45 99/45 99/45 O2 Sat by Pulse 100 99 99 Oximetry 05/09/20 05/09/20 05/09/20 09:31 09:45 10:01 Temperature Pulse Rate 65 66 68 Respiratory 10 L 12 11 L Rate Blood Pressure 99/45 99/45 99/45 O2 Sat by Pulse 100 100 99 Oximetry 05/09/20 05/09/20 05/09/20 10:15 10:32 10:33 Temperature 97.9 F Pulse Rate 65 82 83 Respiratory 12 14 16 Rate Blood Pressure 96/55 96/55 96/55 O2 Sat by Pulse 100 99 100 Oximetry 05/09/20 05/09/20 05/09/20 10:35 10:45 10:50 Temperature 97.9 F 97.9 F Pulse Rate 81 63 62 Respiratory 12 11 L 12 Rate Blood Pressure 115/43 111/65 111/65 O2 Sat by Pulse 100 100 98 Oximetry 05/09/20 05/09/20 05/09/20 11:00 11:15 11:20 Temperature 97.8 F Pulse Rate 65 63 67 Respiratory 11 L 11 L 14 Rate Blood Pressure 104/65 111/56 112/54 O2 Sat by Pulse 100 99 99 Oximetry 05/09/20 05/09/20 05/09/20 11:30 11:45 11:50 Temperature 98 F Pulse Rate 62 60 63 Respiratory 14 11 L 12 Rate Blood Pressure 114/63 112/54 114/63 O2 Sat by Pulse 100 100 100 Oximetry 05/09/20 05/09/20 05/09/20 12:00 12:15 12:30 Temperature Pulse Rate 58 L 71 59 L Respiratory 11 L 10 L 11 L Rate Blood Pressure 109/58 97/34 112/58 O2 Sat by Pulse 100 99 100 Oximetry 05/09/20 05/09/20 05/09/20 12:45 12:52 13:01 Temperature 98 F 97.6 F Pulse Rate 61 66 61 Respiratory 10 L 12 10 L Rate Blood Pressure 103/53 111/55 106/57 O2 Sat by Pulse 100 99 100 Oximetry 05/09/20 05/09/20 05/09/20 13:07 13:15 13:30 Temperature 97.9 F Pulse Rate 65 61 63 Respiratory 12 12 14 Rate Blood Pressure 116/54 111/55 115/61 O2 Sat by Pulse 100 100 100 Oximetry 05/09/20 05/09/20 05/09/20 13:37 13:45 14:00 Temperature 98 F Pulse Rate 66 65 70 Respiratory 11 L 12 12 Rate Blood Pressure 116/61 114/54 101/68 O2 Sat by Pulse 99 100 100 Oximetry 05/09/20 05/09/20 05/09/20 14:07 14:15 14:37 Temperature 98 F 97.6 F Pulse Rate 70 60 61 Respiratory 12 14 12 Rate Blood Pressure 101/68 97/55 105/55 O2 Sat by Pulse 100 98 99 Oximetry ED Medical Decision Making - Lab Data Result diagrams: 05/08/20 19:30 05/08/20 19:30 Lab Results 05/08/20 05/08/20 05/08/20 Range/Units 19:30 19:30 19:51 WBC 12.1 H (4.5-11.0) K/mm3 RBC 3.18 L (3.65-5.03) M/mm3 Hgb 5.8 L* (10.1-14.3) gm/dl Hct 18.6 L* (30.3-42.9) % MCV 59 L (79-97) fl MCH 18 L (28-32) pg MCHC 31 (30-34) % RDW 23.6 H (13.2-15.2) % Plt Count 566 H (140-440) K/mm3 Lymph % (Auto) Math And Science Instructor Burnet % (Auto) Math And Science Instructor Eos % (Auto) Math And Science Instructor Baso % (Auto) Math And Science Instructor Lymph # (Auto) Math And Science Instructor [place] # (Auto) Math And Science Instructor Eos # (Auto) Math And Science Instructor Baso # (Auto) Math And Science Instructor Add Manual Diff Complete Total Counted 100 Seg Neutrophils % Math And Science Instructor Seg Neuts % (Manual) 72.0 H (40.0-70.0) % Lymphocytes % (Manual) 22.0 (13.4-35.0) % Monocytes % (Manual) 4.0 (0.0-7.3) % Eosinophils % (Manual) 1.0 (0.0-4.3) % Basophils % (Manual) 1.0 (0.0-1.8) % Nucleated RBC % Not Reportable Seg Neutrophils # Math And Science Instructor Seg Neutrophils # Man 8.7 H (1.8-7.7) K/mm3 Band Neutrophils # 0.0 K/mm3 Lymphocytes # (Manual) 2.7 (1.2-5.4) K/mm3 Abs React Lymphs (Man) 0.0 K/mm3 Monocytes # (Manual) 0.5 (0.0-0.8) K/mm3 Eosinophils # (Manual) 0.1 (0.0-0.4) K/mm3 Basophils # (Manual) 0.1 (0.0-0.1) K/mm3 Metamyelocytes # 0.0 K/mm3 Myelocytes # 0.0 K/mm3 Promyelocytes # 0.0 K/mm3 Blast Cells # 0.0 K/mm3 WBC Morphology Not Reportable Hypersegmented Neuts Not Reportable Hyposegmented Neuts Not Reportable Hypogranular Neuts Not Reportable Smudge Cells Not Reportable Toxic Granulation Not Reportable Toxic Vacuolation Not Reportable Dohle Bodies Not Reportable Pelger-Huet Anomaly Not Reportable Jelly Rods Not Reportable Platelet Estimate Consistent w auto Clumped Platelets Not Reportable Plt Clumps, EDTA Not Reportable Large Platelets Not Reportable Giant Platelets Not Reportable Platelet Satelliting Not Reportable Plt Morphology Comment Not Reportable RBC Morphology Not Reportable Dimorphic RBCs Not Reportable Polychromasia Not Reportable Hypochromasia 2+ Poikilocytosis Not Reportable Anisocytosis 2+ Microcytosis 2+ Macrocytosis Not Reportable Spherocytes Not Reportable Pappenheimer Bodies Not Reportable Sickle Cells Not Reportable Target Cells Not Reportable Tear Drop Cells Rare Ovalocytes Rare Helmet Cells Not Reportable [place] Bodies Not Reportable Mikana Rings Not Reportable Fox Cells Rare Bite Cells Not Reportable Crenated Cell Not Reportable Elliptocytes Not Reportable Acanthocytes (Spur) Not Reportable Rouleaux Not Reportable Hemoglobin C Crystals Not Reportable Schistocytes Not Reportable Malaria parasites Not Reportable Moisés Bodies Not Reportable Hem Pathologist Commnt No Sodium 133 L (137-145) mmol/L Potassium 3.7 (3.6-5.0) mmol/L Chloride 100.6 (98-107) mmol/L Carbon Dioxide 25 (22-30) mmol/L Anion Gap 11 mmol/L BUN 7 (7-17) mg/dL Creatinine 0.6 (0.6-1.2) mg/dL Estimated GFR > 60 ml/min BUN/Creatinine Ratio 12 % Glucose 107 H (65-100) mg/dL Calcium 9.2 (8.4-10.2) mg/dL Total Bilirubin 0.30 (0.1-1.2) mg/dL AST 14 (5-40) units/L ALT 6 L (7-56) units/L Alkaline Phosphatase 43 (35-129) units/L Total Protein 7.4 (6.3-8.2) g/dL Albumin 4.1 (3.9-5) g/dL Albumin/Globulin Ratio 1.2 % HCG, Qual Negative (Negative) Urine Color (Yellow) Urine Turbidity (Clear) Urine pH (5.0-7.0) Ur Specific [place] (1.003-1.030) Urine Protein (Negative) mg/dL Urine Glucose (UA) (Negative) mg/dL Urine Ketones (Negative) mg/dL Urine Blood (Negative) Urine Nitrite (Negative) Urine Bilirubin (Negative) Urine Urobilinogen (<2.0) mg/dL Ur Leukocyte Esterase (Negative) Urine WBC (Auto) (0.0-6.0) /HPF Urine RBC (Auto) (0.0-6.0) /HPF U Epithel Cells (Auto) (0-13.0) /HPF Urine Mucus /HPF Blood Type Antibody Screen Crossmatch 05/08/20 05/09/20 Range/Units Unknown 07:00 WBC (4.5-11.0) K/mm3 RBC (3.65-5.03) M/mm3 Hgb (10.1-14.3) gm/dl Hct (30.3-42.9) % MCV (79-97) fl MCH (28-32) pg MCHC (30-34) % RDW (13.2-15.2) % Plt Count (140-440) K/mm3 Lymph % (Auto) Burnet % (Auto) Eos % (Auto) Baso % (Auto) Lymph # (Auto) Burnet # (Auto) Eos # (Auto) Baso # (Auto) Add Manual Diff Total Counted Seg Neutrophils % Seg Neuts % (Manual) (40.0-70.0) % Lymphocytes % (Manual) (13.4-35.0) % Monocytes % (Manual) (0.0-7.3) % Eosinophils % (Manual) (0.0-4.3) % Basophils % (Manual) (0.0-1.8) % Nucleated RBC % Seg Neutrophils # Seg Neutrophils # Man (1.8-7.7) K/mm3 Band Neutrophils # K/mm3 Lymphocytes # (Manual) (1.2-5.4) K/mm3 Abs React Lymphs (Man) K/mm3 Monocytes # (Manual) (0.0-0.8) K/mm3 Eosinophils # (Manual) (0.0-0.4) K/mm3 Basophils # (Manual) (0.0-0.1) K/mm3 Metamyelocytes # K/mm3 Myelocytes # K/mm3 Promyelocytes # K/mm3 Blast Cells # K/mm3 WBC Morphology Hypersegmented Neuts Hyposegmented Neuts Hypogranular Neuts Smudge Cells Toxic Granulation Toxic Vacuolation Dohle Bodies Pelger-Huet Anomaly Jelly Rods Platelet Estimate Clumped Platelets Plt Clumps, EDTA Large Platelets Giant Platelets Platelet Satelliting Plt Morphology Comment RBC Morphology Dimorphic RBCs Polychromasia Hypochromasia Poikilocytosis Anisocytosis Microcytosis Macrocytosis Spherocytes Pappenheimer Bodies Sickle Cells Target Cells Tear Drop Cells Ovalocytes Helmet Cells [place] Bodies Mikana Rings Fox Cells Bite Cells Crenated Cell Elliptocytes Acanthocytes (Spur) Rouleaux Hemoglobin C Crystals Schistocytes Malaria parasites Moisés Bodies Hem Pathologist Commnt Sodium (137-145) mmol/L Potassium (3.6-5.0) mmol/L Chloride (98-107) mmol/L Carbon Dioxide (22-30) mmol/L Anion Gap mmol/L BUN (7-17) mg/dL Creatinine (0.6-1.2) mg/dL Estimated GFR ml/min BUN/Creatinine Ratio % Glucose (65-100) mg/dL Calcium (8.4-10.2) mg/dL Total Bilirubin (0.1-1.2) mg/dL AST (5-40) units/L ALT (7-56) units/L Alkaline Phosphatase (35-129) units/L Total Protein (6.3-8.2) g/dL Albumin (3.9-5) g/dL Albumin/Globulin Ratio % HCG, Qual (Negative) Urine Color Yellow (Yellow) Urine Turbidity Cloudy (Clear) Urine pH 6.0 (5.0-7.0) Ur Specific [place] 1.014 (1.003-1.030) Urine Protein 100 mg/dl (Negative) mg/dL Urine Glucose (UA) Neg (Negative) mg/dL Urine Ketones Neg (Negative) mg/dL Urine Blood Sm (Negative) Urine Nitrite Neg (Negative) Urine Bilirubin Neg (Negative) Urine Urobilinogen 4.0 (<2.0) mg/dL Ur Leukocyte Esterase Lg (Negative) Urine WBC (Auto) > 182.0 H (0.0-6.0) /HPF Urine RBC (Auto) 30.0 (0.0-6.0) /HPF U Epithel Cells (Auto) 10.0 (0-13.0) /HPF Urine Mucus 3+ /HPF Blood Type O POSITIVE Antibody Screen Negative Crossmatch See Detail - Medical Decision Making 35-year-old female presents to the hospital complaints of lower abdominal pain pain. Urine positive for UTI. Patient treated with IV Rocephin. Pain medicine provided incidental findings of anemia which is symptomatic. History of iron deficiency anemia in the past and got noncompliant with iron supplementation. 1 unit of PRBC provided without incident. This patient does not currently have active bleeding and received 2 unit of PRBC, she will be discharged on antibiotics and iron tablets and follow-up recommended Critical Care Time: No Critical care attestation.: If time is entered above; I have spent that time in minutes in the direct care of this critically ill patient, excluding procedure time. ED Disposition Clinical Impression: UTI (urinary tract infection), Iron deficiency anemia, Symptomatic anemia, Encounter for blood transfusion Disposition: TO HOME OR SELFCARE Is pt being admited?: No Does the pt Need Aspirin: No Condition: Stable Instructions: Abdominal Pain (ED), Urinary Tract Infection, Adult, Preventing Iron Deficiency Anemia, Adult, Blood Transfusion, Adult, Care After, [id number] Additional Instructions: Take the medication as prescribed. Follow-up with your doctor or doctor/clinic provided. Return if symptoms worsen as indicated by your discharge instructions. Prescriptions: Ferrous Sulfate [Feosol 325 MG tab] 325 mg PO DAILY #30 tablet Nitrofurantoin Burnet/M-Cryst [Macrobid CAP] 100 mg PO Q12HR #14 capsule Ibuprofen [Motrin 600 MG tab] 600 mg PO Q8H PRN #20 tablet PRN Reason: Pain Phenazopyridine [Pyridium] 100 mg PO TID #6 tab Referrals: PRIMARY CARE, [Primary Care Provider] - 3-5 Days [facility] [Provider Group] - 3-5 Days Time of Disposition: 15:34
[2020-05-09] MEDS ORDERED: SODIUM CHLORIDE 0.9% 500 ML 500 ML ONE (10:17)
[2020-05-09 16:04] VITALS: BP 132/77
== END 2020-05-09 16:30 | disposition home or self-care (01) ==
LOC: ED 17:06
DX: N39.0 Urinary tract infection, site not specified (principal); D64.9 Anemia, unspecified; F17.200 Nicotine dependence, unspecified, uncomplicated; Z98.890 Other specified postprocedural states
CPT/HCPCS: 36415; 36430; 80053; 81001; 82271; 84703; 85007; 85025; 86850; 86900; 86901; 86920; 96365; 96375; 99283; J0696; J1885; J2270; J2405; J7040; P9016

== ENCOUNTER 2020-05-27 11:49 | Emergency (ER) | payer SELFPAY ==
--- NOTE | 2020-05-27 12:03 | Emergency Department Report ---
Blank Doc - Documentation Documentation: 35-year-old female that presents with upper abdominal pain with radiation to f lank. This initial assessment/diagnostic orders/clinical plan/treatment(s) is/are subject to change based on patient's health status, clinical progression and re- assessment by fellow clinical providers in the ED. Further treatment and workup at subsequent clinical providers discretion. Patient/guardians urged not to elope from the ED as their condition may be serious if not clinically assessed and managed. Initial orders include: 1- Patient sent to [facility] for further evaluation and treatment 2- labs 3- UA
[2020-05-27] MEDS ORDERED: KETOROLAC 60 MG/2 ML INJ IM ONE (12:23)
--- NOTE | 2020-05-27 12:26 | Emergency Department Report ---
ED Abdominal Pain HPI - General Chief Complaint: Abdominal Pain Stated Complaint: BELLY PAIN Time Seen by Provider: 05/27/20 12:02 Source: patient Mode of arrival: Ambulatory Limitations: No Limitations - History of Present Illness Initial Comments: Patient is 35 years old female with no significant past medical history or surgical history except for tubal ligation. Patient presented to the ER complaining of suprapubic crampy abdominal pain radiating to the left flank area. Patient stated that her symptoms started this morning when she started her menstrual cycle. Patient denied any nausea or vomiting. No fever or chills. MD Complaint: abdominal pain, flank pain -: This morning Location: suprapubic - Related Data Previous Rx's Medication Instructions Recorded Last Taken Type Ziprasidone [Geodon] 20 mg PO BID #60 capsule 07/14/18 06/29/19 Rx Amoxicillin [Trimox CAP] 500 mg PO Q8H #30 capsule 09/29/19 Unknown Rx Cetirizine HCl [Zyrtec 10mg tab] 10 mg PO DAILY #30 tablet 09/29/19 Unknown Rx Fluticasone [Flonase] 1 spray NS QDAY #1 bottle 09/29/19 Unknown Rx Ferrous Sulfate [Feosol 325 MG tab] 325 mg PO DAILY #30 tablet 05/09/20 Unknown Rx Ibuprofen [Motrin 600 MG tab] 600 mg PO Q8H PRN #20 tablet 05/09/20 Unknown Rx Nitrofurantoin [place]/M-Cryst 100 mg PO Q12HR #14 capsule 05/09/20 Unknown Rx [Macrobid CAP] Phenazopyridine [Pyridium] 100 mg PO TID #6 tab 05/09/20 Unknown Rx Allergies Allergy/AdvReac Type Severity Reaction Status Date / Time No Known Allergies Allergy Verified 05/27/20 11:55 ED Review of Systems ROS: Stated complaint: BELLY PAIN Other details as noted in HPI Comment: All other systems reviewed and negative Constitutional: denies: chills, fever Respiratory: denies: cough, shortness of breath, SOB with exertion, SOB at rest, wheezing Cardiovascular: denies: chest pain, palpitations, dyspnea on exertion Gastrointestinal: abdominal pain. denies: nausea, vomiting, diarrhea, constipation, hematemesis, melena, hematochezia Genitourinary: denies: urgency, dysuria Musculoskeletal: back pain Neurological: denies: headache, weakness, numbness, paresthesias, confusion, abnormal gait ED Past Medical Hx - Past Medical History Hx Hypertension: No Hx CVA: No Hx Heart Attack/AMI: No Hx Congestive Heart Failure: No Hx Diabetes: No Hx Deep Vein Thrombosis: No Hx Pulmonary Embolism: No Hx GERD: No Hx Liver Disease: No Hx Renal Disease: No Hx Sickle Cell Disease: No Hx Arthritis: No Hx Headaches / Migraines: No Hx Seizures: No Hx Kidney Stones: No Hx Psychiatric Treatment: No Hx Asthma: No Hx COPD: No Hx Tuberculosis: No Hx Dementia: No Hx HIV: No Additional medical history: iron deficiency Anemia, HEAVY MENSES WITH BLOOD TRANSFUSION, Frequent Nose bleeds - Surgical History Hx Coronary Stent: No Hx Open Heart Surgery: No Hx Pacemaker: No Hx Internal Defibrillator: No Hx Cholecystectomy: No Hx Appendectomy: No Hx Breast Surgery: No Additional Surgical History: x 2 - Social History Smoking Status: Current Every Day Smoker - Medications Home Medications: Home Medications Medication Instructions Recorded Confirmed Last Taken Type Ziprasidone [Geodon] 20 mg PO BID #60 capsule 07/14/18 06/29/19 06/29/19 Rx Amoxicillin [Trimox CAP] 500 mg PO Q8H #30 capsule 09/29/19 Unknown Rx Cetirizine HCl [Zyrtec 10mg tab] 10 mg PO DAILY #30 tablet 09/29/19 Unknown Rx Fluticasone [Flonase] 1 spray NS QDAY #1 bottle 09/29/19 Unknown Rx Ferrous Sulfate [Feosol 325 MG tab] 325 mg PO DAILY #30 tablet 05/09/20 Unknown Rx Ibuprofen [Motrin 600 MG tab] 600 mg PO Q8H PRN #20 tablet 05/09/20 Unknown Rx Nitrofurantoin [place]/M-Cryst 100 mg PO Q12HR #14 capsule 05/09/20 Unknown Rx [Macrobid CAP] Phenazopyridine [Pyridium] 100 mg PO TID #6 tab 05/09/20 Unknown Rx ED Physical Exam - General Limitations: No Limitations General appearance: alert, in no apparent distress - Head Head exam: Present: atraumatic, normocephalic, normal inspection - Eye Eye exam: Present: normal appearance - ENT ENT exam: Present: normal exam, normal orophraynx, mucous membranes moist - Neck Neck exam: Present: normal inspection, full ROM. Absent: tenderness, meningismus, lymphadenopathy, thyromegaly - Respiratory Respiratory exam: Present: normal lung sounds bilaterally - Cardiovascular Cardiovascular Exam: Present: regular rate, normal rhythm, normal heart sounds - GI/Abdominal GI/Abdominal exam: Present: soft, normal bowel sounds. Absent: distended, tenderness, guarding, rebound, rigid, organomegaly, mass, bruit, pulsatile mass, hernia - Extremities Exam Extremities exam: Present: normal inspection, full ROM, normal capillary refill. Absent: pedal edema, calf tenderness - Back Exam Back exam: Present: normal inspection, full ROM. Absent: tenderness, CVA tenderness (L), muscle spasm, paraspinal tenderness, vertebral tenderness - Neurological Exam Neurological exam: Present: alert, oriented X3, CN II-XII intact, normal gait, reflexes normal. Absent: motor sensory deficit - Psychiatric Psychiatric exam: Present: normal mood - Skin Skin exam: Present: warm, intact, normal color ED Medical Decision Making - Lab Data Result diagrams: 05/27/20 12:34 05/27/20 12:34 - Medical Decision Making Patient is 35 years old female with no significant past medical history or surgical history except for tubal ligation. Patient presented to the ER complaining of suprapubic crampy abdominal pain radiating to the left flank area. Patient stated that her symptoms started this morning when she started her menstrual cycle. Patient denied any nausea or vomiting. No fever or chills. Patient received Toradol 60 mg IM. Patient stated that she is feeling much better. Patient given prescription for Naprosyn and advised to follow-up with her primary care physician in the next 2 to 3 days and to return to the ER if sh e develop any new symptoms. Critical care attestation.: If time is entered above; I have spent that time in minutes in the direct care of this critically ill patient, excluding procedure time. ED Disposition Clinical Impression: Abdominal pain, Dysmenorrhea Disposition: TO HOME OR SELFCARE Is pt being admited?: No Condition: Stable Instructions: Abdominal Pain (ED), Abdominal Pain, Adult, [id number], Dysmenorrhea Referrals: PRIMARY CARE,MD [Primary Care Provider] - 3-5 Days
[2020-05-27 12:31] LABS: Bacteria,Urine 1+ /HPF (Negative); Bilirubin,Urine NEG (Negative); Blood,Urine LG (Negative); Mucus,Urine 2+ /HPF
[2020-05-27 12:32] LABS: Color,Urine Dark Yellow (Yellow); RBC,Urine > 182.0 /HPF (0.0-6.0)
[2020-05-27 13:38] LABS: Hematocrit 31.6 % (30.3-42.9); Hemoglobin 9.7 gm/dl (10.1-14.3); Mean Corpuscular HGB Conc 31 % (30-34); Mean Corpuscular Volume 78 fl (79-97); Platelet Count 269 K/mm3 (140-440); Red Blood Count 4.05 M/mm3 (3.65-5.03)
[2020-05-27 13:49] LABS: Alanine Aminotransferase 7 units/L (7-56); Albumin 4.3 g/dL (3.9-5); Blood Urea Nitrogen 9 mg/dL (7-17); Hemolysis Index 6
[2020-05-27 13:51] LABS: Red Cell Distribution Width 38.1 % (13.2-15.2)
[2020-05-27 14:11] LABS: BUN/Creatinine Ratio 15
[2020-05-27 14:28] LABS: Anisocytosis 3+; Tear Drop Cells Few; Total Cells Counted 100
[2020-05-27 14:29] LABS: Hypochromasia 2+; Ovalocytes Few; Platelet Estimate Consistent w Auto
== END 2020-05-27 16:31 | disposition home or self-care (01) ==
LOC: ED 11:49
DX: N94.6 Dysmenorrhea, unspecified (principal); F17.200 Nicotine dependence, unspecified, uncomplicated; Z79.899 Other long term (current) drug therapy
CPT/HCPCS: 36415; 80053; 81001; 83690; 84703; 85007; 85025; 87086; 96372; 99283; J1885

== ENCOUNTER 2020-06-06 20:01 | Emergency (ER) | payer SELFPAY ==
[2020-06-06 20:37] VITALS: BP 122/61
--- NOTE | 2020-06-06 20:50 | Emergency Department Report ---
Chief Complaint: Urogenital-Female Stated Complaint: BURNING IN VAGINA AREA Time Seen by Provider: 06/06/20 20:48 - HPI History of Present Illness: 35-year-old -[place] female presents to the emergency room for vaginal irritation. Patient started it started 2 days ago. She denies any fever no chills no nausea no vomiting no abdominal pain no vaginal bleeding or vaginal discharge. Patient was recently seen here 05/27/2020 for a urinary tract infection. Patient did not follow-up with her primary care provider. - Exam Vital Signs: Vital Signs 06/06/20 20:34 Temperature 97.5 F L Pulse Rate 86 Respiratory 18 Rate Blood Pressure 122/61 O2 Sat by Pulse 100 Oximetry Physical Exam: Alert and oriented x3 no acute distress nontoxic in appearance Patient is ambulatory without difficulties. MSE screening note: Focused history and physical exam performed. Due to findings the following was ordered: 35-year-old -[place] female presents to the emergency room for vaginal irritation. Patient started it started 2 days ago. She denies any fever no chills no nausea no vomiting no abdominal pain no vaginal bleeding or vaginal discharge. Patient was recently seen here 05/27/2020 for a urinary tract infection. Patient did not follow-up with her primary care provider. Discussed with patient she can follow-up at the health department or primary care [facility]. Patient vital signs are nonactionable and stable. ED Disposition for MSE Disposition: - MED SCREENING EXAM-LEFT Is pt being admited?: No Does the pt Need Aspirin: No Condition: Stable Additional Instructions: Recommend to follow-up with an [facility] or primary care provider. Referrals: [facility] [Outside] - 3-5 Days [facility] [Provider Group] - 3-5 Days [facility] [Provider Group] - 3-5 Days
== END 2020-06-06 20:48 | disposition left against medical advice (07) ==
LOC: ED 20:01
DX: R10.2 Pelvic and perineal pain (principal); Z53.21 Procedure and treatment not carried out due to patient leaving prior to being seen by health care provider

== ENCOUNTER 2020-09-20 11:28 | Emergency (ER) | payer SELFPAY ==
--- NOTE | 2020-09-20 14:40 | Emergency Department Report ---
ED Female HPI - General Chief complaint: Abdominal Pain Stated complaint: ABD PAIN/VOMITING Time Seen by Provider: 09/20/20 14:04 Source: patient Mode of arrival: Ambulatory Limitations: No Limitations - History of Present Illness Initial comments: 35-year-old female presents to the ER today with complaints of left lower quadrant/left pelvic pain. Patient states that symptoms started about 3 to 4 days ago. She describes it as an intermittent sharp pain which seems to be worse at night when she is laying down and when she is sitting. She reports associated clear vaginal discharge, intermittent nausea and vomiting. She denies any diarrhea, constipation, hematemesis, hematochezia or melena. She denies any UTI symptoms. Last menstrual cycle ended about 3 to 4 days ago. She is not currently any control. She does admits to having at least 3-4 sexual partners. She states that she has protected sexual intercourse. She is G6, P2 AB 4. She denies any abdominal surgeries in past. MD Complaint: vaginal discharge, pelvic pain, other (left lower quandrant pain) -: days(s) (3-4 days ago ) - Related Data Previous Rx's Medication Instructions Recorded Last Taken Type Ziprasidone [Geodon] 20 mg PO BID #60 capsule 07/14/18 06/29/19 Rx Amoxicillin [Trimox CAP] 500 mg PO Q8H #30 capsule 09/29/19 Unknown Rx DOXYCYCLINE Hyclate [Vibramycin 100 mg PO Q12H #14 capsule 09/20/20 Unknown Rx CAP] Ibuprofen [Motrin] 800 mg PO Q8HR PRN #30 tablet 09/20/20 Unknown Rx Allergies Allergy/AdvReac Type Severity Reaction Status Date / Time No Known Allergies Allergy Verified 05/27/20 11:55 ED Review of Systems ROS: Stated complaint: ABD PAIN/VOMITING Other details as noted in HPI Comment: All other systems reviewed and negative Constitutional: denies: chills, fever Eyes: denies: eye pain, eye discharge, vision change ENT: denies: ear pain, throat pain Respiratory: denies: cough, shortness of breath, wheezing Cardiovascular: denies: chest pain, palpitations, edema, syncope, paroxysmal nocturnal dyspnea Endocrine: no symptoms reported Gastrointestinal: abdominal pain, nausea, vomiting. denies: diarrhea, constipation, hematemesis, hematochezia Genitourinary: denies: urgency, dysuria, discharge Skin: denies: rash, lesions, change in color, change in hair/nails, pruritus Neurological: denies: headache, weakness, paresthesias, abnormal gait, vertigo Psychiatric: denies: anxiety, depression, auditory hallucinations, visual hallucinations, homicidal thoughts, suicidal thoughts Hematological/Lymphatic: denies: easy bleeding, easy bruising, swollen glands ED Past Medical Hx - Past Medical History Hx Hypertension: No Hx CVA: No Hx Heart Attack/AMI: No Hx Congestive Heart Failure: No Hx Diabetes: No Hx Deep Vein Thrombosis: No Hx Pulmonary Embolism: No Hx GERD: No Hx Liver Disease: No Hx Renal Disease: No Hx Sickle Cell Disease: No Hx Arthritis: No Hx Headaches / Migraines: No Hx Seizures: No Hx Kidney Stones: No Hx Psychiatric Treatment: No Hx Asthma: No Hx COPD: No Hx Tuberculosis: No Hx Dementia: No Hx HIV: No Additional medical history: iron deficiency Anemia, HEAVY MENSES WITH BLOOD TRANSFUSION, Frequent Nose bleeds - Surgical History Hx Coronary Stent: No Hx Open Heart Surgery: No Hx Pacemaker: No Hx Internal Defibrillator: No Hx Cholecystectomy: No Hx Appendectomy: No Hx Breast Surgery: No Additional Surgical History: x 2 - Social History Smoking Status: Never Smoker Substance Use Type: None - Medications Home Medications: Home Medications Medication Instructions Recorded Confirmed Last Taken Type Ziprasidone [Geodon] 20 mg PO BID #60 capsule 07/14/18 06/29/19 06/29/19 Rx Amoxicillin [Trimox CAP] 500 mg PO Q8H #30 capsule 09/29/19 Unknown Rx DOXYCYCLINE Hyclate [Vibramycin 100 mg PO Q12H #14 capsule 09/20/20 Unknown Rx CAP] Ibuprofen [Motrin] 800 mg PO Q8HR PRN #30 tablet 09/20/20 Unknown Rx ED Physical Exam - General Limitations: No Limitations General appearance: alert, in no apparent distress - Head Head exam: Present: atraumatic, normocephalic, normal inspection - Eye Eye exam: Present: normal appearance, PERRL, EOMI Pupils: Present: normal accommodation - ENT ENT exam: Present: normal exam, mucous membranes moist - Neck Neck exam: Present: normal inspection, full ROM - Respiratory Respiratory exam: Present: normal lung sounds bilaterally. Absent: respiratory distress, wheezes, rales - Cardiovascular Cardiovascular Exam: Present: regular rate, normal rhythm, normal heart sounds - GI/Abdominal GI/Abdominal exam: Present: soft. Absent: distended, tenderness, guarding, rebound - External exam: Present: normal external exam Speculum exam: Present: vaginal discharge (large amount of yellow-green mucopurulent malodorous vaginal discharge), cervical discharge. Absent: vaginal bleeding, foreign body, tissue, laceration Bi-manual exam: Present: cervical motion tendernes (Mild), adnexal tenderness (Bilateral). Absent: adnexal mass - Extremities Exam Extremities exam: Present: normal inspection - Back Exam Back exam: Present: normal inspection - Neurological Exam Neurological exam: Present: alert, oriented X3, CN II-XII intact, normal gait - Psychiatric Psychiatric exam: Present: normal affect, normal mood ED Course Vital Signs 09/20/20 09/20/20 13:20 18:37 Temperature 98.4 F Pulse Rate 80 89 Respiratory 18 Rate Blood Pressure 183/76 118/80 [Right] O2 Sat by Pulse 98 Oximetry ED Medical Decision Making - Lab Data Result diagrams: 09/20/20 14:51 09/20/20 14:51 - Radiology Data Radiology results: report reviewed Patient: LYUDMILA SEO MR#: [id number] : 1985 Acct:[id number] Age/Sex: 35 / F ADM Date: 09/20/20 Loc: ED Attending Dr: Ordering Physician: LYNDSAY PEACOCK Date of Service: 09/20/20 Procedure(s): US transvaginal Accession Number(s): [id number] cc: LYNDSAY PEACOCK ULTRASOUND PELVIS INDICATION / CLINICAL INFORMATION: pelvic pain/suspected STD. TECHNIQUE: Transvaginal. Duplex Color Doppler used: Yes. COMPARISON: 07/11/2017 FINDINGS: UTERUS: Present. - Appearance (if present): No significant abnormality. - Size in cm (if present): 14.2 x 11.0 x 10.4. - Endometrial Complex (if present): No significant abnormality.. Thickness in cm (if measured) = 8 - Mass lesions: Multiple fibroids measuring up to 6.6 cm. - Additional findings: None. RIGHT ADNEXA: No significant ovarian cyst or mass. Normal color Doppler blood flow. LEFT ADNEXA: Left ovary not visualized. No left adnexal mass or cyst. URINARY BLADDER: No significant abnormality. FREE FLUID: None. ADDITIONAL FINDINGS: None. IMPRESSION: 1. No acute findings. 2. Multiple uterine fibroids. 3. Left ovary not visualized. Signer Name: Lester Ospina MD Signed: 09/20/2020 5:24 PM Workstation Name: [id number] Transcribed By: IVY Dictated By: Lester Ospina MD Electronically Authenticated By: Lester Ospina MD Signed Date/Time: 09/20/201723 DD/ 22 TD/TT: - Medical Decision Making 1754: 35-year-old female presents to the ER today with complaints of left lower quadrant/left pelvic pain. Patient states that symptoms started about 3 to 4 days ago. She describes it as an intermittent sharp pain which seems to be worse at night when she is laying down and when she is sitting. She reports associated clear vaginal discharge, intermittent nausea and vomiting. She denies any diarrhea, constipation, hematemesis, hematochezia or melena. She denies any UTI symptoms. Last menstrual cycle ended about 3 to 4 days ago. She is not currently any control. She does admits to having at least 3-4 sexual partners. She states that she has protected sexual intercourse. She is G6, P2 AB 4. She denies any abdominal surgeries in past. labs reviewed -- Wet prep + BV, mild leukocytosis of 12.5 but Labs otherwise unremarkable. Physical exam showed that patient had yellow-green mucopurulent discharge with mild CMT and adnexal tenderness. Pelvic ultrasound shows no abscess or torsion or any other acute abnormalities. Her history and PE is concerning for PID/cervicitis. She has non surgical abdominal exam and therefore no indication for abdominal CT at this time. Patient has not had any severe pain distress. She is not toxic or ill-appearing. She is neurologically intact with a normal gait. She is afebrile with stable vital signs. Patient will be treated with IM Rocephin, discharged home on doxycycline. Discussed lab results, ultrasound results, and suspected diagnosis with patient. patient stable at time of discharge. - Differential Diagnosis PID, cervicitis, ovarian torsion, ovarian abscess, UTI Critical care attestation.: If time is entered above; I have spent that time in minutes in the direct care of this critically ill patient, excluding procedure time. ED Disposition Clinical Impression: Cervicitis, Bacterial vaginosis, PID (pelvic inflammatory disease) Disposition: DC-01 TO HOME OR SELFCARE Is pt being admited?: No Does the pt Need Aspirin: No Condition: Stable Instructions: Bacterial Vaginosis, Cervicitis, [id number], Pelvic Inf lammatory Disease, [id number], Bacterial Vaginosis (ED), Cervicitis (ED), Abdominal Pain (ED) Additional Instructions: I recommend that you take the doxycycline and take it to completion. Take the Motrin as needed for pain. Recommend no sexual contact for about 1 to 2 weeks. Your sexual partner should also be tested and treated. Follow up with the PCP and OBGYN listed on your discharge instructions. Return to ED if worse. Prescriptions: Ibuprofen [Motrin] 800 mg PO Q8HR PRN #30 tablet PRN Reason: Pain DOXYCYCLINE Hyclate [Vibramycin CAP] 100 mg PO Q12H #14 capsule Referrals: MELANIE MARTINEZ MD [Staff Physician] - 3-5 Days [facility] [Provider Group] - 3-5 Days Forms: STI Treatment and Prevention Time of Disposition: 17:41
[2020-09-20 15:09] LABS: Basophils # (Auto) 0.2 K/mm3 (0.0-0.1); Basophils % (Auto) 1.4 % (0.0-1.8); Eosinophils # (Auto) 0.3 K/mm3 (0.0-0.4); Eosinophils % (Auto) 2.3 % (0.0-4.3); Lymphocytes # (Auto) 2.1 K/mm3 (1.2-5.4); Lymphocytes % (Auto) 17.3 % (13.4-35.0); Mean Corpuscular HGB Conc 31 % (30-34); Mean Corpuscular Volume 69 fl (79-97); Monocytes # (Auto) 0.7 K/mm3 (0.0-0.8); Monocytes % (Auto) 5.7 % (0.0-7.3); Platelet Count 452 K/mm3 (140-440); Red Blood Count 3.79 M/mm3 (3.65-5.03); Red Cell Distribution Width 21.3 % (13.2-15.2)
[2020-09-20] MEDS ORDERED: LIDOCAINE-MPF (1%) 10 MG/1 ML VIAL 5 ML INFILTRATI ONE ×2 (15:42→18:29)
[2020-09-20 16:39] LABS: Alanine Aminotransferase 8 units/L (7-56); Albumin 4.4 g/dL (3.9-5); Blood Urea Nitrogen 8 mg/dL (7-17); Calcium 9.4 mg/dL (8.4-10.2); Hemolysis Index 3
[2020-09-20 16:47] LABS: BUN/Creatinine Ratio 13
[2020-09-20 17:23] LABS: Bacteria,Urine 1+ /HPF (Negative); Bilirubin,Urine NEG (Negative); Blood,Urine NEG (Negative); Color,Urine Amber (Yellow); Mucus,Urine 3+ /HPF
--- NOTE | 2020-09-20 17:29 | Ultrasound Report ---
ULTRASOUND PELVIS INDICATION / CLINICAL INFORMATION: pelvic pain/suspected STD. TECHNIQUE: Transvaginal. Duplex Color Doppler used: Yes. COMPARISON: 07/11/2017 FINDINGS: UTERUS: Present. - Appearance (if present): No significant abnormality. - Size in cm (if present): 14.2 x 11.0 x 10.4. - Endometrial Complex (if present): No significant abnormality.. Thickness in cm (if measured) = 8 - Mass lesions: Multiple fibroids measuring up to 6.6 cm. - Additional findings: None. RIGHT ADNEXA: No significant ovarian cyst or mass. Normal color Doppler blood flow. LEFT ADNEXA: Left ovary not visualized. No left adnexal mass or cyst. URINARY BLADDER: No significant abnormality. FREE FLUID: None. ADDITIONAL FINDINGS: None. IMPRESSION: 1. No acute findings. 2. Multiple uterine fibroids. 3. Left ovary not visualized. Signer Name: Lester Ospina MD Signed: 09/20/2020 5:24 PM Workstation Name: [id number]
[2020-09-20 18:37] VITALS: BP 118/80
== END 2020-09-20 18:37 | disposition home or self-care (01) ==
LOC: ED 11:28
DX: N72 Inflammatory disease of cervix uteri (principal); N76.0 Acute vaginitis; B96.89 Other specified bacterial agents as the cause of diseases classified elsewhere; N73.9 Female pelvic inflammatory disease, unspecified; Z79.899 Other long term (current) drug therapy; Z98.890 Other specified postprocedural states
CPT/HCPCS: 36415; 76830; 80053; 81001; 84703; 85025; 87086; 87210; 87591; 96372; 99284; J0696

== ENCOUNTER 2021-05-10 18:40 | Emergency (ER) | payer SELFPAY ==
[2021-05-10 21:18] VITALS: BP 134/66
--- NOTE | 2021-05-10 22:27 | Emergency Department Report ---
ED General Adult HPI - General Chief complaint: Allergic Reaction Stated complaint: ALLERGY Time Seen by Provider: 05/10/21 22:13 Source: patient Mode of arrival: Ambulatory Limitations: No Limitations - History of Present Illness Initial comments: Patient is 36 years old female with no significant past medical history is. Patient stated that for the last 2 weeks she felt like she has a lot of itchy throat and sneezing. Patient stated that this is most likely to pollen. She stated that she took Robitussin [id number] with no improvement. Patient denied any fever or chills. No stridor. - Related Data Previous Rx's Medication Instructions Recorded Last Taken Type Ziprasidone [Geodon] 20 mg PO BID #60 capsule 07/14/18 06/29/19 Rx Amoxicillin [Trimox CAP] 500 mg PO Q8H #30 capsule 09/29/19 Unknown Rx DOXYCYCLINE Hyclate [Vibramycin 100 mg PO Q12H #14 capsule 09/20/20 Unknown Rx CAP] Ibuprofen [Motrin] 800 mg PO Q8HR PRN #30 tablet 09/20/20 Unknown Rx Allergies Allergy/AdvReac Type Severity Reaction Status Date / Time No Known Allergies Allergy Verified 05/27/20 11:55 ED Review of Systems ROS: Stated complaint: ALLERGY Other details as noted in HPI Comment: All other systems reviewed and negative Constitutional: denies: chills, fever ENT: throat pain, congestion Respiratory: denies: cough, shortness of breath, SOB with exertion Cardiovascular: denies: chest pain, palpitations Gastrointestinal: denies: abdominal pain, nausea, vomiting Neurological: denies: headache, weakness, numbness, paresthesias ED Past Medical Hx - Past Medical History Hx Hypertension: No Hx CVA: No Hx Heart Attack/AMI: No Hx Congestive Heart Failure: No Hx Diabetes: No Hx Deep Vein Thrombosis: No Hx Pulmonary Embolism: No Hx GERD: No Hx Liver Disease: No Hx Renal Disease: No Hx Sickle Cell Disease: No Hx Arthritis: No Hx Headaches / Migraines: No Hx Seizures: No Hx Kidney Stones: No Hx Psychiatric Treatment: No Hx Asthma: No Hx COPD: No Hx Tuberculosis: No Hx Dementia: No Hx HIV: No Additional medical history: iron deficiency Anemia, HEAVY MENSES WITH BLOOD TRANSFUSION, Frequent Nose bleeds - Surgical History Hx Coronary Stent: No Hx Open Heart Surgery: No Hx Pacemaker: No Hx Internal Defibrillator: No Hx Cholecystectomy: No Hx Appendectomy: No Hx Breast Surgery: No Additional Surgical History: x 2 - Social History Smoking Status: Never Smoker Substance Use Type: None - Medications Home Medications: Home Medications Medication Instructions Recorded Confirmed Last Taken Type Ziprasidone [Geodon] 20 mg PO BID #60 capsule 07/14/18 06/29/19 06/29/19 Rx Amoxicillin [Trimox CAP] 500 mg PO Q8H #30 capsule 09/29/19 Unknown Rx DOXYCYCLINE Hyclate [Vibramycin 100 mg PO Q12H #14 capsule 09/20/20 Unknown Rx CAP] Ibuprofen [Motrin] 800 mg PO Q8HR PRN #30 tablet 09/20/20 Unknown Rx ED Physical Exam - General Limitations: No Limitations General appearance: alert, in no apparent distress - Head Head exam: Present: atraumatic, normocephalic, normal inspection - ENT ENT exam: Present: normal exam, normal orophraynx, mucous membranes moist - Neck Neck exam: Present: normal inspection, full ROM. Absent: tenderness, meningismus - Respiratory Respiratory exam: Present: normal lung sounds bilaterally - Cardiovascular Cardiovascular Exam: Present: regular rate, normal rhythm, normal heart sounds - GI/Abdominal GI/Abdominal exam: Present: soft, normal bowel sounds. Absent: distended, tenderness, guarding, rebound, rigid, organomegaly, mass, bruit, pulsatile mass, hernia - Extremities Exam Extremities exam: Present: normal inspection, full ROM, normal capillary refill. Absent: tenderness - Back Exam Back exam: Present: normal inspection, full ROM - Neurological Exam Neurological exam: Present: alert, oriented X3, CN II-XII intact - Psychiatric Psychiatric exam: Present: normal mood - Skin Skin exam: Present: warm, intact, normal color ED Course Vital Signs 05/10/21 21:15 Temperature 98.2 F Pulse Rate 81 Respiratory 16 Rate Blood Pressure 134/66 [Left] O2 Sat by Pulse 100 Oximetry ED Medical Decision Making - Medical Decision Making Patient is 36 years old female with no significant past medical history is. Patient stated that for the last 2 weeks she felt like she has a lot of itchy throat and sneezing. Patient stated that this is most likely to pollen. She stated that she took Robitussin [id number] with no improvement. Patient denied any fever or chills. No stridor. Patient symptoms most likely related to allergic rhinitis. Patient given prescription for Flonase and prednisone and advised to follow-up with her primary doctor in the next 2 to 3 days and to return to the ER if she develop any new symptoms. Critical care attestation.: If time is entered above; I have spent that time in minutes in the direct care of this critically ill patient, excluding procedure time. ED Disposition Clinical Impression: Acute allergic rhinitis Disposition: HOME / SELF CARE / HOMELESS Is pt being admited?: No Condition: Stable Instructions: Allergic Rhinitis, Adult, [id number] Referrals: [facility] [Provider Group] - 3-5 Days
== END 2021-05-10 22:52 | disposition home or self-care (01) ==
LOC: ED 18:40
DX: J30.9 Allergic rhinitis, unspecified (principal)
CPT/HCPCS: 99282

== ENCOUNTER 2021-08-16 19:01 | Emergency (ER) | payer SELFPAY ==
[2021-08-16 21:05] LABS: Basophils # (Auto) 0.1 K/mm3 (0.0-0.1); Basophils % (Auto) 1.3 % (0.0-1.8); Eosinophils # (Auto) 0.2 K/mm3 (0.0-0.4); Eosinophils % (Auto) 1.6 % (0.0-4.3); Lymphocytes # (Auto) 0.9 K/mm3 (1.2-5.4); Lymphocytes % (Auto) 8.1 % (13.4-35.0); Mean Corpuscular HGB Conc 28 % (30-34); Monocytes # (Auto) 1.2 K/mm3 (0.0-0.8); Monocytes % (Auto) 10.8 % (0.0-7.3); Platelet Count 347 K/mm3 (140-440); Red Blood Count 3.33 M/mm3 (3.65-5.03)
[2021-08-16 21:08] LABS: Bacteria,Urine 2+ /HPF (Negative); Bilirubin,Urine NEG (Negative); Blood,Urine LG (Negative); Color,Urine Amber (Yellow); Mucus,Urine 3+ /HPF
[2021-08-16 21:10] LABS: Mean Corpuscular Volume 59 fl (79-97); Red Cell Distribution Width 20.7 % (13.2-15.2)
[2021-08-16 21:11] LABS: Hematocrit 19.6 % (30.3-42.9); Hemoglobin 5.5 gm/dl (10.1-14.3)
[2021-08-16 21:12] LABS: WBC,Urine > 182.0 /HPF (0.0-6.0)
[2021-08-16 21:26] LABS: Alanine Aminotransferase 8 units/L (7-56); Albumin 4.5 g/dL (3.9-5); BUN/Creatinine Ratio 10; Blood Urea Nitrogen 8 mg/dL (7-17); Calcium 9.6 mg/dL (8.4-10.2); Hemolysis Index 0
[2021-08-16 22:04] LABS: HCG Qualitative,Urine Negative (Negative)
[2021-08-16] MEDS ORDERED: FERROUS SULFATE 325 MG TAB PO ONE (22:05)
[2021-08-16] MEDS ORDERED: PANTOPRAZOLE 40 MG TAB PO ONE (22:05)
[2021-08-16] MEDS ORDERED: ACETAMINOPHEN 325 MG TAB PO ONE (22:05)
[2021-08-16] MEDS ORDERED: MULTIVITAMINS ,THERAPEUTIC TAB PO ONE (22:05)
[2021-08-16] MEDS ORDERED: IBUPROFEN 400 MG TAB PO ONE (22:05)
--- NOTE | 2021-08-16 22:08 | Emergency Department Report ---
ED General Adult HPI - General Chief complaint: Abdominal Pain Stated complaint: ABDOMINAL/NAUSEA Time Seen by Provider: 08/16/21 21:48 Source: patient, RN notes reviewed, old records reviewed Mode of arrival: Ambulatory Limitations: No Limitations - History of Present Illness Initial comments: This is a 36-year-old female. She has a history of presumed pelvic inflammatory disease, alcohol abuse, iron deficiency anemia, fibroids, and heavy menstruati on. The patient presents to the ER today with a primary complaint of lower abdominal cramping and vaginal bleeding, and some discomfort with urination. Positive loss of taste and smell. Positive cough. She is not COVID-19 vaccinated. No fevers. Positive body aches. Patient diagnosed with gonorrhea in September 2020. She reports multiple sex partners, but reports that she is safe and uses condoms . No hematemesis of bright red blood per rectum. Patient reports that she has heavy menstruation. She is not following up with an outpatient SPACE ENGINEER. She does not take blood thinning medications. -: Gradual, days(s) Location: abdomen Radiation: back Quality: aching Consistency: intermittent Improves with: none Worsens with: none - Related Data Previous Rx's Medication Instructions Recorded Last Taken Type Ziprasidone [Geodon] 20 mg PO BID #60 capsule 07/14/18 06/29/19 Rx Amoxicillin [Trimox CAP] 500 mg PO Q8H #30 capsule 09/29/19 Unknown Rx DOXYCYCLINE Hyclate [Vibramycin 100 mg PO Q12H #14 capsule 09/20/20 Unknown Rx CAP] Ibuprofen [Motrin] 800 mg PO Q8HR PRN #30 tablet 09/20/20 Unknown Rx Fluticasone [Flonase] 1 spray NS QDAY #1 bottle 05/10/21 Unknown Rx Prednisone [predniSONE 10 mg 10 mg PO .TAPER #1 tab.ds.pk 05/10/21 Unknown Rx (6-Day Pack, 21 Tabs)] Ferrous Sulfate [Ferrous Sulfate 324 mg PO TID #90 tab 08/16/21 Unknown Rx 324 MG] Ibuprofen [Motrin] 400 mg PO Q8H PRN #30 tablet 08/16/21 Unknown Rx Multivitamin/Iron/Folic Acid 1 each PO QDAY #30 tab 08/16/21 Unknown Rx [Centrum Women Tablet] Allergies Allergy/AdvReac Type Severity Reaction Status Date / Time No Known Allergies Allergy Verified 05/27/20 11:55 ED Review of Systems ROS: Stated complaint: ABDOMINAL/NAUSEA Other details as noted in HPI Constitutional: malaise. denies: fever Eyes: denies: eye discharge ENT: denies: epistaxis Respiratory: cough Cardiovascular: denies: chest pain Gastrointestinal: abdominal pain. denies: vomiting Genitourinary: as per HPI, other (Heavy menstruation) Musculoskeletal: back pain Neurological: denies: weakness Hematological/Lymphatic: denies: easy bleeding ED Past Medical Hx - Past Medical History Hx Hypertension: No Hx CVA: No Hx Heart Attack/AMI: No Hx Congestive Heart Failure: No Hx Diabetes: No Hx Deep Vein Thrombosis: No Hx Pulmonary Embolism: No Hx GERD: No Hx Liver Disease: No Hx Renal Disease: No Hx Sickle Cell Disease: No Hx Arthritis: No Hx Headaches / Migraines: No Hx Seizures: No Hx Kidney Stones: No Hx Psychiatric Treatment: No Hx Asthma: No Hx COPD: No Hx Tuberculosis: No Hx Dementia: No Hx HIV: No Additional medical history: iron deficiency Anemia, HEAVY MENSES WITH BLOOD TRANSFUSION, Frequent Nose bleeds - Surgical History Hx Coronary Stent: No Hx Open Heart Surgery: No Hx Pacemaker: No Hx Internal Defibrillator: No Hx Cholecystectomy: No Hx Appendectomy: No Hx Breast Surgery: No Additional Surgical History: x 2 - Social History Smoking Status: Never Smoker Substance Use Type: None - Medications Home Medications: Home Medications Medication Instructions Recorded Confirmed Last Taken Type Ziprasidone [Geodon] 20 mg PO BID #60 capsule 07/14/18 06/29/19 06/29/19 Rx Amoxicillin [Trimox CAP] 500 mg PO Q8H #30 capsule 09/29/19 Unknown Rx DOXYCYCLINE Hyclate [Vibramycin 100 mg PO Q12H #14 capsule 09/20/20 Unknown Rx CAP] Ibuprofen [Motrin] 800 mg PO Q8HR PRN #30 tablet 09/20/20 Unknown Rx Fluticasone [Flonase] 1 spray NS QDAY #1 bottle 05/10/21 Unknown Rx Prednisone [predniSONE 10 mg 10 mg PO .TAPER #1 tab.ds.pk 05/10/21 Unknown Rx (6-Day Pack, 21 Tabs)] Ferrous Sulfate [Ferrous Sulfate 324 mg PO TID #90 tab 08/16/21 Unknown Rx 324 MG] Ibuprofen [Motrin] 400 mg PO Q8H PRN #30 tablet 08/16/21 Unknown Rx Multivitamin/Iron/Folic Acid 1 each PO QDAY #30 tab 08/16/21 Unknown Rx [Centrum Women Tablet] ED Physical Exam - General Limitations: No Limitations, Other (During the history and physical examination I am chaperoned by Vickie Lizarraga) General appearance: alert, in no apparent distress - Head Head exam: Present: atraumatic, normocephalic - Eye Eye exam: Present: normal appearance, EOMI. Absent: nystagmus - ENT ENT exam: Present: normal exam, normal orophraynx, mucous membranes moist, normal external ear exam - Neck Neck exam: Present: normal inspection, full ROM. Absent: tenderness, meningismus - Respiratory Respiratory exam: Present: normal lung sounds bilaterally. Absent: respiratory distress, wheezes, rales, rhonchi, stridor, decreased breath sounds - Cardiovascular Cardiovascular Exam: Present: regular rate, normal rhythm, normal heart sounds. Absent: bradycardia, tachycardia, irregular rhythm, systolic murmur, diastolic murmur, rubs, gallop - GI/Abdominal GI/Abdominal exam: Present: soft, normal bowel sounds. Absent: distended, tenderness, guarding, rebound, pulsatile mass - External exam: Present: normal external exam, bleeding. Absent: erythema, swelling, lesions, lacerations, ecchymosis Speculum exam: Present: normal speculum exam, vaginal bleeding Bi-manual exam: Present: uterine tenderness - Extremities Exam Extremities exam: Present: normal inspection, full ROM, other (2+ pulses noted in the bilateral upper and lower extremities. There is no palpable cord. negative Homans sign. Muscular compartments are soft. The pelvis is stable.). Absent: pedal edema, calf tenderness - Back Exam Back exam: Present: normal inspection, full ROM. Absent: tenderness, CVA tenderness (R), CVA tenderness (L), paraspinal tenderness, vertebral tenderness - Neurological Exam Neurological exam: Present: alert, oriented X3, normal gait, other (No facial droop. Tongue midline. Extraocular movements intact bilaterally. Facial sensation intact to light touch in V1, V2, V3 distribution bilaterally. 5 and a 5 strength in 4 extremities. Sensation intact to light touch in 4 extremities.). Absent: motor sensory deficit - Psychiatric Psychiatric exam: Present: anxious - Skin Skin exam: Present: warm, dry, intact, normal color. Absent: rash ED Course Vital Signs 08/16/21 20:19 Temperature 99.8 F H Pulse Rate 103 H Respiratory 20 Rate Blood Pressure 141/57 O2 Sat by Pulse 97 Oximetry - Reevaluation(s) Reevaluation #1: 08/16/21 23:39 Differential diagnosis, including but not limited to: Chronic microcytic anemia, uterine fibroids, iron deficiency anemia, dysmenorrhea, COVID-19 Assessment and plan: 36-year-old female, temperature now 98.7 degrees, heart rat e 65 bpm, saturating 100% on room air, with multiple nonspecific complaints. Microcytic anemia is chronic. Patient ambulatory with a steady gait without significant shortness of breath. We have advised the patient to initiate iron sulfate supplementation, and we also discussed diet and lifestyle modifications for her chronic microcytic anemia. She is not acutely decompensated to the point where she would require an emergency packed red blood cell transfusion at this time. Patient may follow-up with an outpatient primary care doctor, printed circuit board preassembler, or photonics engineer, for initiation of outpatient iron infusion. We will also discharged with iron sulfate supplementation. Do not suspect PID at this time, suspect dysmenorrhea. There is no abdominal tenderness, rebound or guarding, she does not have significant adnexal tenderness and only has mild uterine tenderness, which I would expect given that she is currently menstruating. Initial urinalysis is contaminated, with epithelial cells and blood, given that she is currently menstruating. She is not . She is not hypoxic. Lung sounds are clear. Patient will need to follow-up with her primary care doctor and her photonics engineer to continue outpatient care. She is observed in this ER for hours without clinical decompensation. She is suitable for discharge with outpatient follow-up. Reevaluation #2: 08/16/21 23:47 Not hypoxic. Lung sounds clear. No respiratory distress. No indication for x- ray of the chest, steroids or antibiotics. Outpatient COVID-19 testing. This hospital/emergency room does not have access to Covid testing rapidly. ED Medical Decision Making - Lab Data Result diagrams: 08/16/21 20:32 08/16/21 20:32 Vital Signs 08/16/21 20:19 Temperature 99.8 F H Pulse Rate 103 H Respiratory 20 Rate Blood Pressure 141/57 O2 Sat by Pulse 97 Oximetry Lab Results 08/16/21 08/16/21 08/16/21 Range/Units 20:32 20:32 20:49 WBC 10.9 (4.5-11.0) K/mm3 RBC 3.33 L (3.65-5.03) M/mm3 Hgb 5.5 L* (10.1-14.3) gm/dl Hct 19.6 L* (30.3-42.9) % MCV 59 L (79-97) fl MCH 17 L (28-32) pg MCHC 28 L (30-34) % RDW 20.7 H (13.2-15.2) % Plt Count 347 (140-440) K/mm3 Lymph % (Auto) 8.1 L (13.4-35.0) % [place] % (Auto) 10.8 H (0.0-7.3) % Eos % (Auto) 1.6 (0.0-4.3) % Baso % (Auto) 1.3 (0.0-1.8) % Lymph # (Auto) 0.9 L (1.2-5.4) K/mm3 [place] # (Auto) 1.2 H (0.0-0.8) K/mm3 Eos # (Auto) 0.2 (0.0-0.4) K/mm3 Baso # (Auto) 0.1 (0.0-0.1) K/mm3 Seg Neutrophils % 78.2 H (40.0-70.0) % Seg Neutrophils # 8.5 H (1.8-7.7) K/mm3 Sodium 138 (137-145) mmol/L Potassium 3.8 (3.6-5.0) mmol/L Chloride 102.2 (98-107) mmol/L Carbon Dioxide 23 (22-30) mmol/L Anion Gap 17 mmol/L BUN 8 (7-17) mg/dL Creatinine 0.8 (0.6-1.2) mg/dL Estimated GFR > 60 ml/min BUN/Creatinine Ratio 10 % Glucose 106 H (65-100) mg/dL Calcium 9.6 (8.4-10.2) mg/dL Total Bilirubin 0.20 (0.1-1.2) mg/dL AST 15 (5-40) units/L ALT 8 (7-56) units/L Alkaline Phosphatase 41 (35-129) units/L Total Protein 7.8 (6.3-8.2) g/dL Albumin 4.5 (3.9-5) g/dL Albumin/Globulin Ratio 1.4 % Urine Color [place] (Yellow) Urine Turbidity Cloudy (Clear) Urine pH 5.0 (5.0-7.0) Ur Specific [place] 1.019 (1.003-1.030) Urine Protein 100 mg/dl (Negative) mg/dL Urine Glucose (UA) Neg (Negative) mg/dL Urine Ketones Neg (Negative) mg/dL Urine Blood Lg (Negative) Urine Nitrite Neg (Negative) Urine Bilirubin Neg (Negative) Urine Urobilinogen 2.0 (<2.0) mg/dL Ur Leukocyte Esterase Lg (Negative) Urine WBC (Auto) > 182.0 H (0.0-6.0) /HPF Urine RBC (Auto) 4.0 (0.0-6.0) /HPF U Epithel Cells (Auto) 42.0 H (0-13.0) /HPF Urine Bacteria (Auto) 2+ (Negative) /HPF Urine WBC Clumps 3+ /HPF Urine Mucus 3+ /HPF Urine HCG, Qual (Negative) 08/16/21 Range/Units 20:49 WBC (4.5-11.0) K/mm3 RBC (3.65-5.03) M/mm3 Hgb (10.1-14.3) gm/dl Hct (30.3-42.9) % MCV (79-97) fl MCH (28-32) pg MCHC (30-34) % RDW (13.2-15.2) % Plt Count (140-440) K/mm3 Lymph % (Auto) (13.4-35.0) % [place] % (Auto) (0.0-7.3) % Eos % (Auto) (0.0-4.3) % Baso % (Auto) (0.0-1.8) % Lymph # (Auto) (1.2-5.4) K/mm3 [place] # (Auto) (0.0-0.8) K/mm3 Eos # (Auto) (0.0-0.4) K/mm3 Baso # (Auto) (0.0-0.1) K/mm3 Seg Neutrophils % (40.0-70.0) % Seg Neutrophils # (1.8-7.7) K/mm3 Sodium (137-145) mmol/L Potassium (3.6-5.0) mmol/L Chloride (98-107) mmol/L Carbon Dioxide (22-30) mmol/L Anion Gap mmol/L BUN (7-17) mg/dL Creatinine (0.6-1.2) mg/dL Estimated GFR ml/min BUN/Creatinine Ratio % Glucose (65-100) mg/dL Calcium (8.4-10.2) mg/dL Total Bilirubin (0.1-1.2) mg/dL AST (5-40) units/L ALT (7-56) units/L Alkaline Phosphatase (35-129) units/L Total Protein (6.3-8.2) g/dL Albumin (3.9-5) g/dL Albumin/Globulin Ratio % Urine Color (Yellow) Urine Turbidity (Clear) Urine pH (5.0-7.0) Ur Specific [place] (1.003-1.030) Urine Protein (Negative) mg/dL Urine Glucose (UA) (Negative) mg/dL Urine Ketones (Negative) mg/dL Urine Blood (Negative) Urine Nitrite (Negative) Urine Bilirubin (Negative) Urine Urobilinogen (<2.0) mg/dL Ur Leukocyte Esterase (Negative) Urine WBC (Auto) (0.0-6.0) /HPF Urine RBC (Auto) (0.0-6.0) /HPF U Epithel Cells (Auto) (0-13.0) /HPF Urine Bacteria (Auto) (Negative) /HPF Urine WBC Clumps /HPF Urine Mucus /HPF Urine HCG, Qual Negative (Negative) Critical care attestation.: If time is entered above; I have spent that time in minutes in the direct care of this critically ill patient, excluding procedure time. ED Disposition Clinical Impression: Microcytic anemia, Suspected COVID-19 virus infection Disposition: HOME / SELF CARE / HOMELESS Is pt being admited?: No Does the pt Need Aspirin: No Condition: Good Instructions: Abdominal Pain (ED), Iron-Rich Diet, COVID-19 Frequently Asked Questions, Preventing Iron Deficiency Anemia, Adult Additional Instructions: Cultures were sent today, and results will be available in the next 3 to 5 days. Please have your primary care doctor contact the medical records department to obtain culture results. Patient is found to have chronic anemia today. This is likely secondary to vaginal bleeding. We recommend follow-up with a photonics engineer within the next week for heavy vaginal bleeding. Take the iron sulfate supplementation as directed. Take the multivitamins with folic acid as directed. Consume plenty of green vegetables, and protein, including salmon or chicken or fish or steak or red meat. Patient may also benefit from outpatient iron infusions, and may follow-up with a printed circuit board preassembler, such as Dr. Carson, within the next 2 weeks, for evaluation for outpatient iron infusion. We recommend that the patient abstain from consumption of alcohol, tobacco and smoke products. Recommend the patient obtain rapid COVID-19 test as an outpatient, and complete COVID-19 vaccination series. Patient may take the prescribed pain medication as needed and directed, in conjunction with [id number] Tylenol/acetaminophen. The [facility] is a local low cost medical clinic. Please return to the emergency room right away with new pain, worsened pain, migration of pain, projectile vomiting, change in mental status, confusion, inability tolerate liquid feeds, new, worsened or different symptoms not present on the initial emergency room evaluation Referrals: MELANIE MARTINEZ MD [Primary Care Provider] - 3-5 Days [facility] [Provider Group] - 3-5 Days [facility]ICAL [facility]URITY MANA[facility], [facility] [Provider Group] - 3-5 Days [facility] [Provider Group] - 3-5 Days KATHIA CARSON MD [Staff Physician] - 3-5 Days Forms: Work/School Release Form(ED)
[2021-08-16 23:39] LABS: Bilirubin,Urine NEG (Negative); Blood,Urine LG (Negative); Color,Urine Amber (Yellow); Mucus,Urine 3+ /HPF; WBC,Urine > 182.0 /HPF (0.0-6.0)
[2021-08-16 23:57] VITALS: BP 105/58
== END 2021-08-16 23:55 | disposition home or self-care (01) ==
LOC: ED 19:01
DX: D50.9 Iron deficiency anemia, unspecified (principal); Z20.822 Contact with and (suspected) exposure to COVID-19
CPT/HCPCS: 36415; 80053; 81001; 81025; 85025; 87210; 87591; 99284

== ENCOUNTER 2021-10-27 09:08 | Emergency (ER) | payer SELFPAY ==
[2021-10-27 10:58] LABS: Bacteria,Urine 1+ /HPF (Negative); Mucus,Urine 3+ /HPF
[2021-10-27 11:03] LABS: Bilirubin,Urine Negative (Negative); Blood,Urine Negative (Negative); Color,Urine Yellow (Yellow)
[2021-10-27 11:04] LABS: Urobilinogen,Urine < 2.0 mg/dL (<2.0)
[2021-10-27 11:12] LABS: Alanine Aminotransferase 9 units/L (7-56); Albumin 4.8 g/dL (3.9-5); Blood Urea Nitrogen 10 mg/dL (7-17); Calcium 9.2 mg/dL (8.4-10.2); Hemolysis Index 0
[2021-10-27 11:13] LABS: BUN/Creatinine Ratio 17
[2021-10-27 11:22] LABS: Mean Corpuscular HGB Conc 28 % (30-34); Platelet Count 496 K/mm3 (140-440)
[2021-10-27 11:28] LABS: Hematocrit 19.6 % (30.3-42.9); Hemoglobin 5.6 gm/dl (10.1-14.3); Mean Corpuscular Volume 58 fl (79-97); Red Cell Distribution Width 22.3 % (13.2-15.2)
[2021-10-27 12:17] LABS: Basophils % (Manual) 0 % (0.0-1.8); Total Cells Counted 100
[2021-10-27 12:19] LABS: Anisocytosis 2+; Poikilocytosis 1+
[2021-10-27 12:20] LABS: Hypochromasia 3+; Large Platelets Rare; Ovalocytes Rare; Platelet Estimate Consistent w Auto; Stomatocytes Rare; Tear Drop Cells Rare
[2021-10-27] MEDS ORDERED: SODIUM CHLORIDE 0.9% 500 ML 500 ML IV ONE (21:16)
[2021-10-27] MEDS ORDERED: ACETAMINOPHEN 500 MG TAB PO ONE (21:17)
--- NOTE | 2021-10-27 21:18 | Emergency Department Report ---
ED General Adult HPI - General Chief complaint: Medical Clearance Stated complaint: They sent me in for blood transfusion Time Seen by Provider: 10/27/21 20:58 Source: patient, RN notes reviewed, old records reviewed Mode of arrival: Ambulatory Limitations: No Limitations - History of Present Illness Initial comments: The patient was evaluated in the emergency department for symptoms described in the history of present illness. He/she was evaluated in the context of the global COVID-19 pandemic, which necessitated consideration that the patient bhavna ht be at risk for infection with the virus that causes COVID-19. Institutional protocols and algorithms that pertain to the evaluation of patients at risk for COVID-19 are in a state of rapid change based on information released by regulatory bodies including the CDC and federal and state organizations. These policies and algorithms were followed during the patient's care in the emergency department. Please note that these policies, procedures and recommendations changed on a rapid basis. This is a 36-year-old female. I have evaluated this patient in the past. Her past medical history includes pelvic inflammatory disease, alcohol abuse, iron deficiency anemia, fibroids, and heavy menstruation. I saw this patient in July 2021 for asymptomatic microcytic anemia. At that time, the patient declined a blood transfusion. I recommended diet and lifestyle modifications, prescribed iron sulfate supplementation, and instructed the patient to follow-up with outpatient [facility]NAGER [facility]. The patient has not followed up with outpatient MANAGER [facility]. The patient is not taking prescribed iron sulfate flores pplementation. The patient reports that she was seen at the health department recently, found to have low blood counts, and referred to the emergency room for blood transfusion. The patient reports that she has no fever. She endorses mild shortness of breath, dizziness, and lightheadedness. No dysuria. Patient endorses abdominal cramping and lower back spasms and cramping. Recent urine cultures were negative. Recent pelvic cultures were negative. -: days(s) Location: back, abdomen Quality: aching Consistency: intermittent Improves with: rest Worsens with: movement - Related Data Previous Rx's Medication Instructions Recorded Last Taken Type Ziprasidone [Geodon] 20 mg PO BID #60 capsule 07/14/18 06/29/19 Rx Ibuprofen [Motrin] 800 mg PO Q8HR PRN #30 tablet 09/20/20 Unknown Rx Fluticasone [Flonase] 1 spray NS QDAY #1 bottle 05/10/21 Unknown Rx Prednisone [predniSONE 10 mg 10 mg PO .TAPER #1 tab.ds.pk 05/10/21 Unknown Rx (6-Day Pack, 21 Tabs)] Ferrous Sulfate [Ferrous Sulfate 324 mg PO TID #90 tab 10/27/21 Unknown Rx 324 MG] Ibuprofen [Motrin 400 MG tab] 400 mg PO Q8H PRN #30 tablet 10/27/21 Unknown Rx Multivitamin/Iron/Folic Acid 1 each PO QDAY #30 tab 10/27/21 Unknown Rx [Centrum Women Tablet] Allergies Allergy/AdvReac Type Severity Reaction Status Date / Time No Known Allergies Allergy Verified 05/27/20 11:55 ED Review of Systems ROS: Stated complaint: SOB/DIZZINESS/STOMACH PAIN Other details as noted in HPI Constitutional: weakness. denies: fever Eyes: denies: eye discharge ENT: denies: congestion Respiratory: shortness of breath Cardiovascular: denies: chest pain Gastrointestinal: abdominal pain Genitourinary: denies: dysuria Musculoskeletal: back pain Neurological: weakness Hematological/Lymphatic: denies: easy bleeding ED Past Medical Hx - Past Medical History Hx Hypertension: No Hx CVA: No Hx Heart Attack/AMI: No Hx Congestive Heart Failure: No Hx Diabetes: No Hx Deep Vein Thrombosis: No Hx Pulmonary Embolism: No Hx GERD: No Hx Liver Disease: No Hx Renal Disease: No Hx Sickle Cell Disease: No Hx Arthritis: No Hx Headaches / Migraines: No Hx Seizures: No Hx Kidney Stones: No Hx Psychiatric Treatment: No Hx Asthma: No Hx COPD: No Hx Tuberculosis: No Hx Dementia: No Hx HIV: No Additional medical history: iron deficiency Anemia, HEAVY MENSES WITH BLOOD TRANSFUSION, Frequent Nose bleeds - Surgical History Hx Coronary Stent: No Hx Open Heart Surgery: No Hx Pacemaker: No Hx Internal Defibrillator: No Hx Cholecystectomy: No Hx Appendectomy: No Hx Breast Surgery: No Additional Surgical History: x 2 - Social History Smoking Status: Never Smoker Substance Use Type: None - Medications Home Medications: Home Medications Medication Instructions Recorded Confirmed Last Taken Type Ziprasidone [Geodon] 20 mg PO BID #60 capsule 07/14/18 06/29/19 06/29/19 Rx Ibuprofen [Motrin] 800 mg PO Q8HR PRN #30 tablet 09/20/20 Unknown Rx Fluticasone [Flonase] 1 spray NS QDAY #1 bottle 05/10/21 Unknown Rx Prednisone [predniSONE 10 mg 10 mg PO .TAPER #1 tab.ds.pk 05/10/21 Unknown Rx (6-Day Pack, 21 Tabs)] Ferrous Sulfate [Ferrous Sulfate 324 mg PO TID #90 tab 10/27/21 Unknown Rx 324 MG] Ibuprofen [Motrin 400 MG tab] 400 mg PO Q8H PRN #30 tablet 10/27/21 Unknown Rx Multivitamin/Iron/Folic Acid 1 each PO QDAY #30 tab 10/27/21 Unknown Rx [Centrum Women Tablet] ED Physical Exam - General Limitations: No Limitations General appearance: alert, in no apparent distress - Head Head exam: Present: atraumatic, normocephalic - Eye Eye exam: Present: normal appearance, EOMI, other (Bilateral conjunctiva are pale). Absent: nystagmus - ENT ENT exam: Present: normal exam, normal orophraynx, mucous membranes moist, normal external ear exam - Neck Neck exam: Present: normal inspection, full ROM. Absent: tenderness, meningismus - Respiratory Respiratory exam: Present: normal lung sounds bilaterally. Absent: respiratory distress, wheezes, rales, rhonchi, stridor, decreased breath sounds - Cardiovascular Cardiovascular Exam: Present: regular rate, normal rhythm, normal heart sounds. Absent: bradycardia, tachycardia, irregular rhythm, systolic murmur, diastolic murmur, rubs, gallop - GI/Abdominal GI/Abdominal exam: Present: soft. Absent: distended, tenderness, guarding, rebound, rigid, pulsatile mass - Extremities Exam Extremities exam: Present: normal inspection, full ROM, other (2+ pulses noted in the bilateral upper and lower extremities. There is no palpable cord. negative Homans sign. Muscular compartments are soft. The pelvis is stable.). Absent: pedal edema, calf tenderness - Back Exam Back exam: Present: normal inspection. Absent: tenderness, CVA tenderness (R), CVA tenderness (L), paraspinal tenderness, vertebral tenderness - Neurological Exam Neurological exam: Present: alert, oriented X3, other (No facial droop. Tongue midline. Extraocular movements intact bilaterally. Facial sensation intact to light touch in V1, V2, V3 distribution bilaterally. 5 and a 5 strength in 4 extremities. Sensation intact to light touch in 4 extremities.). Absent: motor sensory deficit - Psychiatric Psychiatric exam: Present: normal affect, normal mood - Skin Skin exam: Present: warm, dry, intact, normal color. Absent: rash ED Course Vital Signs 10/27/21 10/27/21 10/28/21 09:13 22:22 01:56 Temperature 98.1 F 98.3 F Pulse Rate 96 H 68 Respiratory 18 14 Rate Blood Pressure 139/52 Blood Pressure 102/47 [Left] O2 Sat by Pulse 100 Oximetry 10/28/21 10/28/21 10/28/21 02:07 02:11 02:15 Temperature Pulse Rate 73 78 Respiratory 15 15 17 Rate Blood Pressure 109/61 109/61 Blood Pressure [Left] O2 Sat by Pulse 100 100 Oximetry 10/28/21 10/28/21 10/28/21 02:31 02:45 03:01 Temperature Pulse Rate 68 65 70 Respiratory 16 14 14 Rate Blood Pressure 100/67 100/67 114/56 Blood Pressure [Left] O2 Sat by Pulse 100 100 100 Oximetry 10/28/21 10/28/21 10/28/21 03:15 03:31 03:45 Temperature Pulse Rate 75 60 58 L Respiratory 19 12 14 Rate Blood Pressure 114/56 107/50 107/50 Blood Pressure [Left] O2 Sat by Pulse 100 100 100 Oximetry 10/28/21 10/28/21 04:01 04:15 Temperature Pulse Rate 64 64 Respiratory 15 15 Rate Blood Pressure 102/44 102/44 Blood Pressure [Left] O2 Sat by Pulse 99 99 Oximetry - Reevaluation(s) Reevaluation #1: 10/27/21 21:48 Differential diagnosis, including but not limited to: Noncompliance, uterine fibroids, microcytic anemia, symptomatic anemia Assessment and plan: 36-year-old female, who is afebrile, with reassuring vital signs, with no abdominal tenderness, rebound, guarding or peritoneal signs, no CVA tenderness, initial urinalysis is contaminated, but denies dysuria, recent urine cultures negative, essentially presenting with symptomatic microcytic anemia, likely secondary to uterine fibroids, in the context of noncompliance and failure to follow-up. The patient denies rectal bleeding. She is not hypoxic at this time. Her EKG is essentially unremarkable at this time. Extensive discussion had with patient regarding recommendations to follow-up with outpatient MANAGER [facility], and participate in the aforementioned diet and lifestyle recommendations. I printed out the patient's old discharge summary, which I wrote for her, and I represented to the patient. Since the patient is symptomatic, we will transfuse packed red blood cells today. I will again refill multivitamins, as well as iron sulfate. I will again give the patient outpatient follow-up with outpatient MANAGER [facility]. Patient's had imaging studies in the past, which have demonstrated uterine fibroids. The patient reports that she is not reliable to follow-up. The patient has clear lung sounds, and is saturating 100% on room air. Would not obtain x-ray of the chest at this time 10/27/21 23:49 The patient is resting comfortably in stretcher. We are still awaiting packed red blood cell transfusion 10/28/21 05:49 Patient is in no acute distress. She has completed her first unit of packed red blood cell transfusion. She is now receiving her second unit of packed red blood cell transfusion. She is observed for hours without clinical decompensation. She will be discharged upon completion of second unit of packed red blood cells. Appropriate prescriptions are provided, as well as outpatient precautions and return instructions. Have also instructed patient to follow-up with outpatient MANAGER CHEM[facility] ED Medical Decision Making - Lab Data Result diagrams: 10/27/21 09:26 10/27/21 09:26 Vital Signs 10/27/21 09:13 Temperature 98.1 F Pulse Rate 96 H Respiratory 18 Rate Blood Pressure 139/52 O2 Sat by Pulse 100 Oximetry Lab Results 10/27/21 10/27/21 10/27/21 Range/Units 09:26 09:26 21:16 WBC 5.2 (4.5-11.0) K/mm3 RBC 3.40 L (3.65-5.03) M/mm3 Hgb 5.6 L* (10.1-14.3) gm/dl Hct 19.6 L* (30.3-42.9) % MCV 58 L (79-97) fl MCH 16 L (28-32) pg MCHC 28 L (30-34) % RDW 22.3 H (13.2-15.2) % Plt Count 496 H (140-440) K/mm3 Add Manual Diff Complete Total Counted 100 Seg Neuts % (Manual) 63.0 (40.0-70.0) % Band Neutrophils % 0 % Lymphocytes % (Manual) 29.0 (13.4-35.0) % Reactive Lymphs % (Man) 0 % Monocytes % (Manual) 6.0 (0.0-7.3) % Eosinophils % (Manual) 2.0 (0.0-4.3) % Basophils % (Manual) 0 (0.0-1.8) % Metamyelocytes % 0 % Myelocytes % 0 % Promyelocytes % 0 % Blast Cells % 0 % Nucleated RBC % 1.0 H (0.0-0.9) % Seg Neutrophils # Man 3.3 (1.8-7.7) K/mm3 Band Neutrophils # 0.0 K/mm3 Lymphocytes # (Manual) 1.5 (1.2-5.4) K/mm3 Abs React Lymphs (Man) 0.0 K/mm3 Monocytes # (Manual) 0.3 (0.0-0.8) K/mm3 Eosinophils # (Manual) 0.1 (0.0-0.4) K/mm3 Basophils # (Manual) 0.0 (0.0-0.1) K/mm3 Metamyelocytes # 0.0 K/mm3 Myelocytes # 0.0 K/mm3 Promyelocytes # 0.0 K/mm3 Blast Cells # 0.0 K/mm3 WBC Morphology Not Reportable Hypersegmented Neuts Not Reportable Hyposegmented Neuts Not Reportable Hypogranular Neuts Not Reportable Smudge Cells Not Reportable Toxic Granulation Not Reportable Toxic Vacuolation Not Reportable Dohle Bodies Not Reportable Pelger-Huet Anomaly Not Reportable Jelly Rods Not Reportable Platelet Estimate Consistent w auto Clumped Platelets Not Reportable Plt Clumps, EDTA Not Reportable Large Platelets Rare Giant Platelets Not Reportable Platelet Satelliting Not Reportable Plt Morphology Comment Not Reportable RBC Morphology Not Reportable Dimorphic RBCs Not Reportable Polychromasia Rare Hypochromasia 3+ Poikilocytosis 1+ Anisocytosis 2+ Microcytosis 2+ Macrocytosis Not Reportable Spherocytes Not Reportable Pappenheimer Bodies Not Reportable Sickle Cells Not Reportable Target Cells Not Reportable Tear Drop Cells Rare Ovalocytes Rare Stomatocytes Rare Helmet Cells Not Reportable [place] Bodies Not Reportable Atlantic Rings Not Reportable [place] Cells Not Reportable Bite Cells Not Reportable Crenated Cell Not Reportable Elliptocytes Rare Acanthocytes (Spur) Rare Rouleaux Not Reportable Hemoglobin C Crystals Not Reportable Schistocytes Not Reportable Malaria parasites Not Reportable [place]is[place] Bodies Not Reportable Hem Pathologist Commnt No Sodium 139 (137-145) mmol/L Potassium 3.8 (3.6-5.0) mmol/L Chloride 107.2 H (98-107) mmol/L Carbon Dioxide 20 L (22-30) mmol/L Anion Gap 16 mmol/L BUN 10 (7-17) mg/dL Creatinine 0.6 (0.6-1.2) mg/dL Estimated GFR > 60 ml/min BUN/Creatinine Ratio 17 % Glucose 79 (65-100) mg/dL Calcium 9.2 (8.4-10.2) mg/dL Total Bilirubin 0.20 (0.1-1.2) mg/dL AST 14 (5-40) units/L ALT 9 (7-56) units/L Alkaline Phosphatase 39 (35-129) units/L Total Protein 8.1 (6.3-8.2) g/dL Albumin 4.8 (3.9-5) g/dL Albumin/Globulin Ratio 1.5 % Urine Color (Yellow) Urine Turbidity (Clear) Urine pH (5.0-7.0) Ur Specific [place] (1.003-1.030) Urine Protein (Negative) mg/dL Urine Glucose (UA) (Negative) mg/dL Urine Ketones (Negative) mg/dL Urine Blood (Negative) Urine Nitrite (Negative) Ur Reducing Substances Urine Bilirubin (Negative) Urine Ictotest Urine Urobilinogen (<2.0) mg/dL Ur Leukocyte Esterase (Negative) Urine WBC (Auto) (0.0-6.0) /HPF Urine RBC (Auto) (0.0-6.0) /HPF U Epithel Cells (Auto) (0-13.0) /HPF Urine Bacteria (Auto) (Negative) /HPF Urine Mucus /HPF Blood Type O POSITIVE Crossmatch See Detail 10/27/21 Range/Units Unknown WBC (4.5-11.0) K/mm3 RBC (3.65-5.03) M/mm3 Hgb (10.1-14.3) gm/dl Hct (30.3-42.9) % MCV (79-97) fl MCH (28-32) pg MCHC (30-34) % RDW (13.2-15.2) % Plt Count (140-440) K/mm3 Add Manual Diff Total Counted Seg Neuts % (Manual) (40.0-70.0) % Band Neutrophils % % Lymphocytes % (Manual) (13.4-35.0) % Reactive Lymphs % (Man) % Monocytes % (Manual) (0.0-7.3) % Eosinophils % (Manual) (0.0-4.3) % Basophils % (Manual) (0.0-1.8) % Metamyelocytes % % Myelocytes % % Promyelocytes % % Blast Cells % % Nucleated RBC % (0.0-0.9) % Seg Neutrophils # Man (1.8-7.7) K/mm3 Band Neutrophils # K/mm3 Lymphocytes # (Manual) (1.2-5.4) K/mm3 Abs React Lymphs (Man) K/mm3 Monocytes # (Manual) (0.0-0.8) K/mm3 Eosinophils # (Manual) (0.0-0.4) K/mm3 Basophils # (Manual) (0.0-0.1) K/mm3 Metamyelocytes # K/mm3 Myelocytes # K/mm3 Promyelocytes # K/mm3 Blast Cells # K/mm3 WBC Morphology Hypersegmented Neuts Hyposegmented Neuts Hypogranular Neuts Smudge Cells Toxic Granulation Toxic Vacuolation Dohle Bodies Pelger-Huet Anomaly Jelly Rods Platelet Estimate Clumped Platelets Plt Clumps, EDTA Large Platelets Giant Platelets Platelet Satelliting Plt Morphology Comment RBC Morphology Dimorphic RBCs Polychromasia Hypochromasia Poikilocytosis Anisocytosis Microcytosis Macrocytosis Spherocytes Pappenheimer Bodies Sickle Cells Target Cells Tear Drop Cells Ovalocytes Stomatocytes Helmet Cells [place]ung-[place] Bodies [place] Rings [place] Cells Bite Cells Crenated Cell Elliptocytes Acanthocytes (Spur) Rouleaux Hemoglobin C Crystals Schistocytes Malaria parasites Moisés Bodies Hem Pathologist Commnt Sodium (137-145) mmol/L Potassium (3.6-5.0) mmol/L Chloride (98-107) mmol/L Carbon Dioxide (22-30) mmol/L Anion Gap mmol/L BUN (7-17) mg/dL Creatinine (0.6-1.2) mg/dL Estimated GFR ml/min BUN/Creatinine Ratio % Glucose (65-100) mg/dL Calcium (8.4-10.2) mg/dL Total Bilirubin (0.1-1.2) mg/dL AST (5-40) units/L ALT (7-56) units/L Alkaline Phosphatase (35-129) units/L Total Protein (6.3-8.2) g/dL Albumin (3.9-5) g/dL Albumin/Globulin Ratio % Urine Color Yellow (Yellow) Urine Turbidity Clear (Clear) Urine pH 6.0 (5.0-7.0) Ur Specific [place] 1.025 (1.003-1.030) Urine Protein 30 mg/dl (Negative) mg/dL Urine Glucose (UA) Negative (Negative) mg/dL Urine Ketones Negative (Negative) mg/dL Urine Blood Negative (Negative) Urine Nitrite Negative (Negative) Ur Reducing Substances Not Reportable Urine Bilirubin Negative (Negative) Urine Ictotest Not Reportable Urine Urobilinogen < 2.0 (<2.0) mg/dL Ur Leukocyte Esterase Trace (Negative) Urine WBC (Auto) 23.0 H (0.0-6.0) /HPF Urine RBC (Auto) 121.0 (0.0-6.0) /HPF U Epithel Cells (Auto) 92.0 H (0-13.0) /HPF Urine Bacteria (Auto) 1+ (Negative) /HPF Urine Mucus 3+ /HPF Blood Type Crossmatch - EKG Data -: EKG Interpreted by Nv EKG shows normal: sinus rhythm Rate: normal - EKG Data 10/27/21 21:48 The EKG is interpreted at 21: 41 Sinus rhythm, 77 bpm. Normal axis, normal P wave axis, QTC 4 5 4 ms. Borderline high left ventricular voltage. This is not a STEMI. - Radiology Data Radiology results: pending, report reviewed, image reviewed Critical Care Time: Yes Critical care time in (mins) excluding proc time.: 35 Critical care attestation.: If time is entered above; I have spent that time in minutes in the direct care of this critically ill patient, excluding procedure time. ED Disposition Clinical Impression: Noncompliance, Microcytic anemia, Fibroids Disposition: HOME / SELF CARE / HOMELESS Is pt being admited?: No Does the pt Need Aspirin: No Condition: Good Instructions: Preventing Iron Deficiency Anemia, Adult, Uterine Fibroids, [id number], Iron-Rich Diet, Abdominal Pain (ED) Additional Instructions: Patient is encouraged to consume an iron rich diet as we have discussed. Patient is also encouraged to take the iron sulfate supplementation, and multivitamins as directed. Cultures are sent today, and results will be available within the next week. Please have your primary care doctor or MANAGER [facility] physician contact the medical records department to obtain culture results. Avoid consumption of alcohol, tobacco, and smoke products. Follow-up with an MANAGER [facility] doctor within the next week. Please return to the emergency room right away with new pain, worsened pain, migration of pain, projectile vomiting, change in mental status, confusion, inability tolerate liquid feeds, new, worsened or different symptoms not present on the initial emergency room evaluation Prescriptions: Multivitamin/Iron/Folic Acid [Centrum Women Tablet] 1 each PO QDAY #30 tab Ferrous Sulfate [Ferrous Sulfate 324 MG] 324 mg PO TID #90 tab Ibuprofen [Motrin 400 MG tab] 400 mg PO Q8H PRN #30 tablet PRN Reason: Pain , Severe (7-10) Referrals: [facility] [Provider Group] - 3-5 Days [facility] [Provider Group] - 3-5 Days [facility] [Provider Group[facility] - 3-5 Days [facility] [Provider Group] - 3-5 Days Forms: Work/School Release Form(ED)
[2021-10-28 06:35] VITALS: BP 113/59
--- NOTE | 2021-10-28 13:31 | Electrocardiograph Report ---
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
== END 2021-10-28 07:04 | disposition home or self-care (01) ==
LOC: ED 09:08
DX: D50.9 Iron deficiency anemia, unspecified (principal); D21.9 Benign neoplasm of connective and other soft tissue, unspecified
CPT/HCPCS: 36415; 80053; 81001; 84702; 85007; 85025; 86850; 86900; 86901; 86920; 87086; 93005; 96360; 96361; 99283; J7040; P9016

== ENCOUNTER 2021-12-19 13:50 | Emergency (ER) | payer SELFPAY | END 2021-12-19 13:55 | disposition left against medical advice (07) | LOC: ED 13:50 | DX: R53.1 Weakness (principal); Z53.21 Procedure and treatment not carried out due to patient leaving prior to being seen by health care provider ==